=== PATIENT | female | born 1960 | race Caucasian/White ===

== ENCOUNTER 2016-12-03 12:58 | Emergency (ER) | payer MEDICAID, OTHER ==
--- NOTE | 2016-12-03 14:14 | EDDOCDS ---
Nurse's Notes [facility] Name: Izzy Dinh Age: 56 yrs Sex: Female : 1960 Arrival Date: 12/03/2016 Time: 12:58 Bed TR8 Private MD: Unknown, Family Dr Diagnosis: Tinea corporis;Sciatica, left side Presentation: 12/03 13:02 Presenting complaint: Patient states: bad rash under left breast for about a week I [facility] think it's shingles nothing is helping. I also have a pain that goes from my left hip to my knee and I can't sleep on it or turn on it in bed and the front of my leg gets a cramp. Adult Sepsis Screening: The patient does not have new or worsening altered mentation. Patient's respiratory rate is less than 22. Systolic blood pressure is greater than 100. Patient has a qSOFA score of 0- Negative Sepsis Screen. Suicide/Homicide risk assessment- the patient denies having any suicidal and/or homicidal ideations and does not present with any other emotional, behavioral or mental health complaints. Status: Patient is not a therapeutic activities services worker or dependent. Transition of care: patient was not received from another setting of care. 13:02 Acuity: ANYI Level 4 [facility] 13:02 Method Of Arrival: Walkin/Carried/Asstd [facility] Triage Assessment: 13:03 General: Appears in no apparent distress, comfortable, Behavior is appropriate for age, [facility] cooperative. Pain: Location: right lateral anterior chest Pain currently is 6 out of 10 on a pain scale. HIV screening NA for this visit Offered previously. Neurological: Level of Consciousness is awake, alert, Oriented to person, place, time. Respiratory: Airway is patent Respiratory effort is even, unlabored, Respiratory pattern is regular, symmetrical. Derm: Skin is pink, warm & dry. 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 Clonazepam Oral 1 tab 2 times per day as needed for Panic Disorder 2. Hydrochlorothiazide Oral 1 cap nightly for Hypertension 3. Lexapro 20 mg Oral tab 1 tab nightly - PMHx: Anxiety; Depression; Hypertension; - PSHx: Rotator Cuff Repair- Left; Tonsillectomy; ankle, left fracture repair; - Social history: Smoking status: Patient states was never smoker of tobacco. No barriers to communication noted. - Family history: Not pertinent. - : The pt / caregiver states he / she is not on anticoagulants. Home medication list is obtained from the patient. - Exposure Risk Screening:: None identified. Screenin:12 Screening information is obtained from the patient. Fall risk: No risks identified. mlb1 Assistance ADL's: requires no assistance with activities of daily living. Abuse/DV Screen: The patient / caregiver reports he/she is: not in a situation that causes fear, pain or injury. Nutritional screening: No deficits noted. Advance Directives: Currently, there is no health care proxy. home support is adequate. Assessment: 14:11 General: Appears in no apparent distress, comfortable, Behavior is appropriate for age, mlb1 cooperative. Pain: Location: left breast Pain currently is 4 out of 10 on a pain scale. Derm: Rash noted that is on left breast. Vital Signs: 12:59 BP 132 / 72; Pulse 78; Resp 16; Temp 97.9(O); Pulse Ox 99% on R/A; Weight 111.13 kg elp (R); Height 5 ft. 9 in. (175.26 cm) (R); Pain 6/10; 12:59 Body Mass Index 36.18 (111.13 kg, 175.26 cm) [facility] Vitals: 12:59 Log In Time: December 03, 2016 at 12:58. [facility] ED Course: 12:59 Patient visited by Dixei Carrera PCA. elp 12:59 Unknown, Family is Private Physician. elp 12:59 Patient moved to Waiting elp 13:00 Patient visited by Dixie Carrera PCA. elp 13:00 Patient moved to Pre RCE elp 13:03 Triage Initiated cjh 13:20 Patient moved to Triage 3 rs6 13:21 Oneida Esquivel PA-C is [facility]. dt4 13:21 Steve Cantu MD is Attending Physician. dt4 13:21 Patient visited by Oneida Esquivel PA-C. dt4 14:12 No IV's were initiated during this patient's visit. No procedures done that require mlb1 assistance. 14:13 Patient visited by Jorge Luis Dial RN. mlb1 14:13 The patient / caregiver is instructed regarding the plan of care and ED course. mlb1 14:13 Patient moved to [address] Order Results: There are currently no results for this order. Outcome: 14:05 Discharge ordered by Provider. dt4 14:12 Discharge Assessment: Patient awake, alert and oriented x 3. No cognitive and/or mlb1 functional deficits noted. Patient verbalized understanding of disposition instructions. patient administered narcotics - no. The following High Risk Discharge criteria are identified: None. Discharged to home ambulatory. Condition: good. Discharge instructions given to patient, Instructed on discharge instructions, follow up and referral plans. medication usage, Demonstrated understanding of instructions, medications, Pt was receptive of discharge instructions/ teaching. Prescriptions given X 2. No special radiology studies were completed. Property sent home with patient. 14:13 Patient left the ED. mlb1 Signatures: Jorge Luis Dial RN RN mlb1 Hemalatha MartinRN RN [facility] Dixie Carrera, DERRICK BOAT CAPTAIN DERRICK BOAT CAPTAIN elp Oneida Esquivel PAFranchescaC PA-David dt4 Kim Zuluaga, DERRICK BOAT CAPTAIN DERRICK BOAT CAPTAIN rs6 [facility]
--- NOTE | 2016-12-03 14:14 | EDDOCDS ---
Physician Documentation [facility] Name: Izzy Dinh Age: 56 yrs Sex: Female : 1960 Arrival Date: 12/03/2016 Time: 12:58 Bed TR8 Private MD: Unknown, Family Dr Disposition: 12/03/16 14:05 Discharged to Home/Self Care. Impression: Tinea corporis, Sciatica, left side. - Condition is Stable. - Discharge Instructions: Body Ringworm, Sciatica, [id number]. - Prescriptions for CLOTRIMAZOLE/BETAMETHASONE DIPROPRIONATE TOPICAL LOTION - apply to affected area 1 application by TOPICAL route 2 times per day for 14 days APPLY THIN LAYER TO AFFECTED AREA ONLY TWICE DAILY; 1 tube. Ultram 50 mg Oral Tablet - take 1 tablet by ORAL route every 6 hours As needed MDD: 4 tabs; MAY CAUSE DROWSINESS.; 12 tablet. - Medication Reconciliation, Local Pharmacy Hours form. - Follow up: Emergency Department; When: As needed; Reason: Worsening of conditions. Follow up: Private Physician; When: Call to arrange an appointment; Reason: Wound/Symptom Recheck, Recheck today's complaints, Continuance of care. - Problem is new. - Symptoms are unchanged. Historical: - Allergies: PENICILLINS (Hives, Rash); - Home Meds: 1. Clonazepam Oral 1 tab 2 times per day as needed for Panic Disorder 2. Hydrochlorothiazide Oral 1 cap nightly for Hypertension 3. Lexapro 20 mg Oral tab 1 tab nightly - PMHx: Anxiety; Depression; Hypertension; - PSHx: Rotator Cuff Repair- Left; Tonsillectomy; ankle, left fracture repair; - Social history: Smoking status: Patient states was never smoker of tobacco. No barriers to communication noted. - Family history: Not pertinent. - : The pt / caregiver states he / she is not on anticoagulants. Home medication list is obtained from the patient. - Exposure Risk Screening:: None identified. 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 9 in. (175.26 cm) (R); Pain 6/10; 12:59 Body Mass Index 36.18 (111.13 kg, 175.26 cm) [facility] MDM: 14:13 Financial registration complete. lg Signatures: Radha Stewart, Reg Reg lg Jorge Luis Dial, RN RN mlb1 Hemalatha Martin RN RN cjh Oneida Esquivel PA-C PABaldo dt4 MTDD
--- NOTE | 2016-12-05 15:14 | EDDOCDS ---
Nurse's Notes [facility] Name: Izzy Dinh Age: 56 yrs Sex: Female : 1960 Arrival Date: 12/03/2016 Time: 12:58 Bed TR8 Private MD: Unknown, Family Dr Diagnosis: Tinea corporis;Sciatica, left side Presentation: 12/03 13:02 Presenting complaint: Patient states: bad rash under left breast for about a week I [facility] think it's shingles nothing is helping. I also have a pain that goes from my left hip to my knee and I can't sleep on it or turn on it in bed and the front of my leg gets a cramp. Adult Sepsis Screening: The patient does not have new or worsening altered mentation. Patient's respiratory rate is less than 22. Systolic blood pressure is greater than 100. Patient has a qSOFA score of 0- Negative Sepsis Screen. Suicide/Homicide risk assessment- the patient denies having any suicidal and/or homicidal ideations and does not present with any other emotional, behavioral or mental health complaints. Status: Patient is not a financial services intern or dependent. Transition of care: patient was not received from another setting of care. 13:02 Acuity: ANYI Level 4 [facility] 13:02 Method Of Arrival: Walkin/Carried/Asstd [facility] Triage Assessment: 13:03 General: Appears in no apparent distress, comfortable, Behavior is appropriate for age, [facility] cooperative. Pain: Location: right lateral anterior chest Pain currently is 6 out of 10 on a pain scale. HIV screening NA for this visit Offered previously. Neurological: Level of Consciousness is awake, alert, Oriented to person, place, time. Respiratory: Airway is patent Respiratory effort is even, unlabored, Respiratory pattern is regular, symmetrical. Derm: Skin is pink, warm & dry. 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 Clonazepam Oral 1 tab 2 times per day as needed for Panic Disorder 2. Hydrochlorothiazide Oral 1 cap nightly for Hypertension 3. Lexapro 20 mg Oral tab 1 tab nightly - PMHx: Anxiety; Depression; Hypertension; - PSHx: Rotator Cuff Repair- Left; Tonsillectomy; ankle, left fracture repair; - Social history: Smoking status: Patient states was never smoker of tobacco. No barriers to communication noted. - Family history: Not pertinent. - : The pt / caregiver states he / she is not on anticoagulants. Home medication list is obtained from the patient. - Exposure Risk Screening:: None identified. Screenin:12 Screening information is obtained from the patient. Fall risk: No risks identified. mlb1 Assistance ADL's: requires no assistance with activities of daily living. Abuse/DV Screen: The patient / caregiver reports he/she is: not in a situation that causes fear, pain or injury. Nutritional screening: No deficits noted. Advance Directives: Currently, there is no health care proxy. home support is adequate. Assessment: 14:11 General: Appears in no apparent distress, comfortable, Behavior is appropriate for age, mlb1 cooperative. Pain: Location: left breast Pain currently is 4 out of 10 on a pain scale. Derm: Rash noted that is on left breast. Vital Signs: 12:59 BP 132 / 72; Pulse 78; Resp 16; Temp 97.9(O); Pulse Ox 99% on R/A; Weight 111.13 kg elp (R); Height 5 ft. 9 in. (175.26 cm) (R); Pain 6/10; 12:59 Body Mass Index 36.18 (111.13 kg, 175.26 cm) [facility] Vitals: 12:59 Log In Time: December 03, 2016 at 12:58. [facility] ED Course: 12:59 Patient visited by Dixie Carrera PCA. elp 12:59 Unknown, Family is Private Physician. elp 12:59 Patient moved to Waiting elp 13:00 Patient visited by Dixie Carrera PCA. elp 13:00 Patient moved to Pre RCE elp 13:03 Triage Initiated cjh 13:20 Patient moved to Triage 3 rs6 13:21 One[facility]ivel [facility]C [facility]. dt4 13:21 Steve Cnatu MD is Attending Physician. dt4 13:21 Patient visited by Oneida Esquivel PA-C. dt4 14:12 No IV's were initiated during this patient's visit. No procedures done that require mlb1 assistance. 14:13 Patient visited by Jorge Luis Dial RN. mlb1 14:13 The patient / caregiver is instructed regarding the plan of care and ED course. mlb1 14:13 Patient moved to [address] 15:13 T-Sheet-- Draft Copy was scanned into [employer] and attached to record. 15:46 Patient name changed from Izzy\S\Jasmyn\S\Dinh\S\ to Izzy\S\L\S\Dinh. EDMS 15:47 [facility] Payment Agreement was scanned into [employer] and attached to record. Order Results: There are currently no results for this order. Outcome: 14:05 Discharge ordered by Provider. dt4 14:12 Discharge Assessment: Patient awake, alert and oriented x 3. No cognitive and/or mlb1 functional deficits noted. Patient verbalized understanding of disposition instructions. patient administered narcotics - no. The following High Risk Discharge criteria are identified: None. Discharged to home ambulatory. Condition: good. Discharge instructions given to patient, Instructed on discharge instructions, follow up and referral plans. medication usage, Demonstrated understanding of instructions, medications, Pt was receptive of discharge instructions/ teaching. Prescriptions given X 2. No special radiology studies were completed. Property sent home with patient. 14:13 Patient left the ED. mlb1 Signatures: Dispatcher [employer] EDRI Beth Kuo, Reg Reg gb Radha Stewart, Reg Reg lg Jorge Luis Dial RN RN mlb1 Hemalatha MartinRN RN [facility] Dixie Carrera, SUPERVISOR TELEPHONE ANSWERING SERVICE SUPERVISOR TELEPHONE ANSWERING SERVICE elp Oneida Esquivel, PA-C PA-C dt4 Kim Zuluaga, SUPERVISOR TELEPHONE ANSWERING SERVICE SUPERVISOR TELEPHONE ANSWERING SERVICE rs6 Chart Complete MTDD
--- NOTE | 2016-12-05 15:14 | EDDOCDS ---
Physician Documentation [facility] Name: Izzy Dinh Age: 56 yrs Sex: Female : 1960 Arrival Date: 12/03/2016 Time: 12:58 Bed TR8 Private MD: Unknown, Family Dr Disposition: 12/03/16 14:05 Discharged to Home/Self Care. Impression: Tinea corporis, Sciatica, left side. - Condition is Stable. - Discharge Instructions: Body Ringworm, Sciatica, [id number]. - Prescriptions for CLOTRIMAZOLE/BETAMETHASONE DIPROPRIONATE TOPICAL LOTION - apply to affected area 1 application by TOPICAL route 2 times per day for 14 days APPLY THIN LAYER TO AFFECTED AREA ONLY TWICE DAILY; 1 tube. Ultram 50 mg Oral Tablet - take 1 tablet by ORAL route every 6 hours As needed MDD: 4 tabs; MAY CAUSE DROWSINESS.; 12 tablet. - Medication Reconciliation, Local Pharmacy Hours form. - Follow up: Emergency Department; When: As needed; Reason: Worsening of conditions. Follow up: Private Physician; When: Call to arrange an appointment; Reason: Wound/Symptom Recheck, Recheck today's complaints, Continuance of care. - Problem is new. - Symptoms are unchanged. Historical: - Allergies: PENICILLINS (Hives, Rash); - Home Meds: 1. Clonazepam Oral 1 tab 2 times per day as needed for Panic Disorder 2. Hydrochlorothiazide Oral 1 cap nightly for Hypertension 3. Lexapro 20 mg Oral tab 1 tab nightly - PMHx: Anxiety; Depression; Hypertension; - PSHx: Rotator Cuff Repair- Left; Tonsillectomy; ankle, left fracture repair; - Social history: Smoking status: Patient states was never smoker of tobacco. No barriers to communication noted. - Family history: Not pertinent. - : The pt / caregiver states he / she is not on anticoagulants. Home medication list is obtained from the patient. - Exposure Risk Screening:: None identified. 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 9 in. (175.26 cm) (R); Pain 6/10; 12:59 Body Mass Index 36.18 (111.13 kg, 175.26 cm) elp MDM: 14:13 Financial registration complete. lg 15:13 T-Sheet-- Draft Copy was scanned into [employer] and attached to record. gb 15:47 [facility] Payment Agreement was scanned into [employer] and attached to record. lg Signatures: Beth Kuo, Reg Reg gb Radha Stewart, Reg Reg lg Jorge Luis Dial, RN RN mlb1 Hemalatha MartinRN RN [facility] Oneida Esquivel, TACOS PABaldo dt4 The chart was reviewed and I authenticate all verbal orders and agree with the evaluation and treatment provided.Attachments: 15:13 T-Sheet-- Draft Copy gb 15:47 [facility] Payment Agreement lg Chart Complete MTDD
--- NOTE | 2016-12-05 15:14 | EDDOCDS ---
Physician Documentation [facility] Name: Izzy Dinh Age: 56 yrs Sex: Female : 1960 Arrival Date: 12/03/2016 Time: 12:58 Bed TR8 Private MD: Unknown, Family Dr Disposition: 12/03/16 14:05 Discharged to Home/Self Care. Impression: Tinea corporis, Sciatica, left side. - Condition is Stable. - Discharge Instructions: Body Ringworm, Sciatica, [id number]. - Prescriptions for CLOTRIMAZOLE/BETAMETHASONE DIPROPRIONATE TOPICAL LOTION - apply to affected area 1 application by TOPICAL route 2 times per day for 14 days APPLY THIN LAYER TO AFFECTED AREA ONLY TWICE DAILY; 1 tube. Ultram 50 mg Oral Tablet - take 1 tablet by ORAL route every 6 hours As needed MDD: 4 tabs; MAY CAUSE DROWSINESS.; 12 tablet. - Medication Reconciliation, Local Pharmacy Hours form. - Follow up: Emergency Department; When: As needed; Reason: Worsening of conditions. Follow up: Private Physician; When: Call to arrange an appointment; Reason: Wound/Symptom Recheck, Recheck today's complaints, Continuance of care. - Problem is new. - Symptoms are unchanged. Historical: - Allergies: PENICILLINS (Hives, Rash); - Home Meds: 1. Clonazepam Oral 1 tab 2 times per day as needed for Panic Disorder 2. Hydrochlorothiazide Oral 1 cap nightly for Hypertension 3. Lexapro 20 mg Oral tab 1 tab nightly - PMHx: Anxiety; Depression; Hypertension; - PSHx: Rotator Cuff Repair- Left; Tonsillectomy; ankle, left fracture repair; - Social history: Smoking status: Patient states was never smoker of tobacco. No barriers to communication noted. - Family history: Not pertinent. - : The pt / caregiver states he / she is not on anticoagulants. Home medication list is obtained from the patient. - Exposure Risk Screening:: None identified. 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 9 in. (175.26 cm) (R); Pain 6/10; 12:59 Body Mass Index 36.18 (111.13 kg, 175.26 cm) elp MDM: 14:13 Financial registration complete. lg 15:13 T-Sheet-- Draft Copy was scanned into [employer] and attached to record. gb 15:47 [facility] Payment Agreement was scanned into [employer] and attached to record. lg Signatures: Beth Kuo, Reg Reg gb Radha Stewart, Reg Reg lg Jorge Luis Dial, RN RN mlb1 Hemalatha MartinRN RN [facility] Oneida Esquivel, TACOS PABaldo dt4 The chart was reviewed and I authenticate all verbal orders and agree with the evaluation and treatment provided.Attachments: 15:13 T-Sheet-- Draft Copy gb 15:47 [facility] Payment Agreement lg Chart Complete MTDD
== END 2016-12-03 14:13 | disposition home or self-care (01) ==
LOC: M ED 12:58
DX: B35.4 Tinea corporis (principal); M54.32 Sciatica, left side; I10 Essential (primary) hypertension; F41.9 Anxiety disorder, unspecified; F32.9 Major depressive disorder, single episode, unspecified; Z79.899 Other long term (current) drug therapy; Z88.0 Allergy status to penicillin

== ENCOUNTER → 2017-01-02 | Outpatient (CLI) | payer OTHER ==
--- NOTE | 2017-01-06 09:33 | DEXA ---
AP SPINE L1 - L4 1.019 -1.4 -1.8 LT FEMUR TOTAL 1.082 0.6 0.4 RT FEMUR TOTAL 1.038 0.2 0.0 TOTAL BODY TOTAL OTHER DUAL FEMUR FRAX* ASSESSMENT Risk factors: History of adult fracture. 10 year probability of fracture Major osteoporotic fracture 8.1 % Hip fracture 0.2 % COMMENTS: Normal bone densitometry of the left hip. Normal bone densitometry of the right hip. There is low bone density of the spine. FOLLOW-UP: Recommendation for the next bone density exam: 2 years. RIZWAN
== END ==
LOC: M WHC 13:47
PROVIDERS: ATTEND Family Medicine
DX: Z12.31 Encounter for screening mammogram for malignant neoplasm of breast (principal); N95.9 Unspecified menopausal and perimenopausal disorder

== ENCOUNTER → 2017-01-07 | Outpatient (REF) | payer OTHER ==
[2017-01-07 16:04] LABS: MEAN CORPUSCULAR HGB CONC 33.4 g/dl (32.0-36.5); MEAN CORPUSCULAR VOLUME 89.8 fl (80.0-96.0); RED CELL DISTRIBUTION WIDTH 12.5 % (11.5-14.5); WHITE BLOOD COUNT 5.2 K/mm3 (4.0-10.0)
[2017-01-07 16:28] LABS: ALBUMIN 3.6 GM/DL (3.2-5.2); ALBUMIN/GLOBULIN RATIO 1.03 (1.00-1.93); ALKALINE PHOSPHATASE 104 U/L (45-117); ALT/SGPT 25 U/L (12-78); ANION GAP 6 MEQ/L (8-16); AST/SGOT 19 U/L (15-37); BLOOD UREA NITROGEN 19 MG/DL (7-18); CALCIUM LEVEL 8.4 MG/DL (8.5-10.1); CARBON DIOXIDE LEVEL 30 MEQ/L (21-32); CHLORIDE LEVEL 105 MEQ/L (98-107); CHOLESTEROL LEVEL 174 MG/DL (<200); CREATININE FOR GFR 0.68 MG/DL (0.55-1.02); GLOMERULAR FILTRATION RATE > 60.0 (>51); GLUCOSE, FASTING 96 MG/DL (70-105); MAGNESIUM LEVEL 2.1 MG/DL (1.8-2.4); POTASSIUM SERUM 4.1 MEQ/L (3.5-5.1); SODIUM LEVEL 141 MEQ/L (136-145); TOTAL PROTEIN 7.1 GM/DL (6.4-8.2); TRIGLYCERIDES LEVEL 134 MG/DL (<150)
[2017-01-07 17:27] LABS: FOLLICLE STIMULATING HORMONE 32.7 mIU/mL; LUTEINIZING HORMONE 17.6 mIU/mL
== END ==
LOC: M SFHCSACK 08:42
PROVIDERS: ATTEND Physician Assistant
DX: N95.1 Menopausal and female climacteric states (principal); R25.2 Cramp and spasm; I10 Essential (primary) hypertension; F34.1 Dysthymic disorder

== ENCOUNTER 2017-05-06 12:10 | Emergency (ER) | payer OTHER ==
[~2017-05-06] VITALS: Ht 175.3 cm; Wt 119.8 kg
[2017-05-06] MEDS ORDERED: HYDR12CA PO (12:24)
[2017-05-06] MEDS ORDERED: ESCI20TA PO (12:24)
[2017-05-06] MEDS ORDERED: CLON0.5T PO (12:24)
[2017-05-06] MEDS ORDERED: IBUP200C10 PO (12:24)
[2017-05-06] MEDS ORDERED: TESS100C PO (13:54)
[2017-05-06] MEDS ORDERED: MAGICMW MT (13:54)
[2017-05-06] MEDS ORDERED: CLEO300C2 PO (13:54)
[2017-05-06 14:09] VITALS: BP 126/74
== END 2017-05-06 14:11 | disposition home or self-care (01) ==
LOC: M ED 13:47
DX: R05 Cough (principal); F41.9 Anxiety disorder, unspecified; Z79.899 Other long term (current) drug therapy; Z88.0 Allergy status to penicillin

== ENCOUNTER → 2017-06-12 | Outpatient (REF) | payer OTHER ==
[~2017-06-12] MED LIST: CLEO300C2 PO; CLON0.5T PO; ESCI20TA PO; HYDR12CA PO; IBUP200C10 PO; MAGICMW MT; TESS100C PO
== END ==
LOC: M SFHCSACK 11:20
PROVIDERS: ATTEND Physician Assistant
DX: Z78.9 Other specified health status (principal)

== ENCOUNTER → 2017-07-07 | Outpatient (REF) | payer OTHER | LOC: M SFHCWAGY 13:31 | PROVIDERS: ATTEND Nurse Practitioner Family | DX: Z12.4 Encounter for screening for malignant neoplasm of cervix (principal) ==

== ENCOUNTER 2017-10-10 10:05 | Emergency (ER) | payer OTHER ==
[~2017-10-10] VITALS: Ht 175.3 cm; Wt 113.2 kg
[2017-10-10 10:06] VITALS: BP 123/60
--- NOTE | 2017-10-10 10:54 | REP ---
Clinical: Trauma. Technique: AP, lateral, bilateral oblique and sunrise views of the right knee. Findings: Advanced tricompartmental osteoarthritic degenerative changes significantly limit evaluation for subtle underlying injury. No obvious acute fracture or dislocation is appreciated. Diffuse swelling. Cannot exclude effusion. Impression: Limited by advanced tricompartmental arthritic changes. Soft tissue swelling suggested. Subtle injury cannot be excluded. Signed by Feliberto Dailey MD 10/10/2017 10:45 A
--- NOTE | 2017-10-10 10:55 | REP ---
Clinical: Trauma. Technique: AP, lateral, bilateral oblique views right foot . Findings: Degenerative changes including valgus deformity noted as well as nonacute fracture at the base of the fifth metatarsal bone with surrounding callus formation and periosteal reaction. No obvious acute fracture or dislocation appreciated. No subcutaneous emphysema or radiodense foreign body. Impression: Degenerative changes and evidence for nonacute fracture at the base of the fifth metatarsal bone. Signed by Feliberto Dailey MD 10/10/2017 10:47 A
--- NOTE | 2017-10-10 10:56 | REP ---
Clinical: Trauma. Technique: AP, lateral, bilateral oblique views of the right ankle. Findings: Arthritic degenerative changes and possible old injury at the base of the fifth metatarsal bone suggested. No obvious acute fracture or dislocation. Ankle mortise appears intact. Impression: Arthritic degenerative changes. Nonacute fracture at the base of the fifth metatarsal bone. No acute ankle fracture identified. Signed by Feliberto Dailey MD 10/10/2017 10:48 A
--- NOTE | 2017-10-10 11:59 | REP ---
Clinical: Trauma. Possible fracture. Technique: Axial noncontrast images from the distal femoral diaphysis through the proximal tibial diaphysis with coronal and sagittal re-formations. Findings: There is no evidence for acute fracture or dislocation. Advanced tricompartmental osteoarthritic degenerative changes are appreciated including diffuse spurring and osteophytosis, subchondral heterogeneity with scattered cystic changes, joint space narrowing and small effusion. The surrounding visualized musculature appears intact and normal. The subcutaneous tissues are grossly unremarkable. Impression: Advanced tricompartmental osteoarthritic degenerative changes including small effusion. No acute fracture or dislocation. Signed by Feliberto Dailey MD 10/10/2017 11:51 A
[2017-10-10] MEDS ORDERED: PERC5TAB12 PO (12:27)
--- NOTE | 2017-10-12 08:36 | ED PDOC ---
Post-Departure Follow-Up radiology report faxed to Babita Wilde Sarah MD Oct 12, 2017 08:36
== END 2017-10-10 12:49 | disposition home or self-care (01) ==
LOC: M ED 10:05
DX: S92.354A Nondisplaced fracture of fifth metatarsal bone, right foot, initial encounter for closed fracture (principal); M17.11 Unilateral primary osteoarthritis, right knee; M19.071 Primary osteoarthritis, right ankle and foot; M25.461 Effusion, right knee; X50.1XXA Overexertion from prolonged static or awkward postures, initial encounter; Y92.480 Sidewalk as the place of occurrence of the external cause; Y93.01 Activity, walking, marching and hiking; Y99.9 Unspecified external cause status; F41.9 Anxiety disorder, unspecified; M19.90 Unspecified osteoarthritis, unspecified site; Z79.899 Other long term (current) drug therapy; Z88.0 Allergy status to penicillin

== ENCOUNTER → 2017-12-16 | Outpatient (REF) | payer BC | LOC: M SFHCSACK 14:27 | DX: J02.9 Acute pharyngitis, unspecified (principal) ==

== ENCOUNTER 2018-03-05 01:39 | Emergency (ER) | payer MEDICAID, BC ==
[2018-03-05] MEDS ORDERED: KETOROLAC 30 MG/ML VIAL (J1885) As Ordered (03:34)
[2018-03-05] MEDS: KETOROLAC 60 MG/2 ML VIAL (J1885) IM (04:06)
== END 2018-03-05 04:21 | disposition home or self-care (01) ==
LOC: M ED 01:39
DX: M17.12 Unilateral primary osteoarthritis, left knee (principal); I10 Essential (primary) hypertension; F33.9 Major depressive disorder, recurrent, unspecified; Z88.0 Allergy status to penicillin; Z79.899 Other long term (current) drug therapy
CPT/HCPCS: J1885

== ENCOUNTER → 2018-03-16 | Outpatient (CLI) | payer MEDICAID ==
[2018-03-16 11:09] LABS: AMORPHOUS SEDIMENT SMALL (NEGATIVE); APPEARANCE, URINE CLOUDY (CLEAR); BACTERIA, URINE AUTO 1+ (NEGATIVE); BILIRUBIN, URINE AUTO NEGATIVE (NEGATIVE); BLOOD, URINE BLOOD NEGATIVE (NEGATIVE); COLOR, URINE YELLOW (YELLOW); GLUCOSE, URINE (UA) AUTO NEGATIVE (NEGATIVE); KETONE, URINE AUTO NEGATIVE (NEGATIVE); LEUKOCYTE ESTERASE, URINE AUTO 1+ (NEGATIVE); MUCUS, URINE LARGE (NEGATIVE); NITRITE, URINE AUTO NEGATIVE (NEGATIVE); PROTEIN, URINE AUTO NEGATIVE (NEGATIVE); RBC, URINE AUTO 2 /HPF (0-3); SPECIFIC GRAVITY URINE AUTO 1.027 (1.002-1.035); SQUAMOUS EPITHELIAL CELL UR AU 12 /HPF (0-6); UROBILINOGEN, URINE AUTO 0.2 mg/dL (0.0-2.0); WBC, URINE AUTO 9 /HPF (0-3)
[2018-03-16 11:13] LABS: HEMATOCRIT 40.9 % (36.0-47.0); HEMOGLOBIN 13.9 g/dl (12.0-15.5); MEAN CORPUSCULAR HEMOGLOBIN 30.2 pg (27.0-33.0); MEAN CORPUSCULAR VOLUME 88.9 fl (80.0-96.0); PLATELET COUNT, AUTOMATED 348 10^3/uL (150-450); RED CELL DISTRIBUTION WIDTH 12.5 % (11.5-14.5); WHITE BLOOD COUNT 7.8 10^3/uL (4.0-10.0)
[2018-03-16 11:16] LABS: INR 1.05; PROTHROMBIN TIME 13.8 SECONDS (12.4-14.5)
[2018-03-16 11:33] LABS: ALBUMIN 3.9 GM/DL (3.2-5.2); ALBUMIN/GLOBULIN RATIO 1.03 (1.00-1.93); ALKALINE PHOSPHATASE 122 U/L (45-117); ALT/SGPT 28 U/L (12-78); ANION GAP 6 MEQ/L (8-16); AST/SGOT 20 U/L (7-37); BILIRUBIN,TOTAL 1.3 MG/DL (0.2-1.0); BLOOD UREA NITROGEN 27 MG/DL (7-18); CALCIUM LEVEL 8.7 MG/DL (8.5-10.1); CARBON DIOXIDE LEVEL 30 MEQ/L (21-32); CHLORIDE LEVEL 106 MEQ/L (98-107); CREATININE FOR GFR 0.68 MG/DL (0.55-1.30); GLOMERULAR FILTRATION RATE > 60.0 (>51); GLUCOSE, FASTING 106 MG/DL (70-100); POTASSIUM SERUM 4.1 MEQ/L (3.5-5.1); SODIUM LEVEL 142 MEQ/L (136-145); TOTAL PROTEIN 7.7 GM/DL (6.4-8.2)
[2018-03-16 11:36] LABS: ERYTHROCYTE SEDIMENTATION RATE 23 mm/hr (0-30)
== END ==
LOC: M ADMPAT 09:10
DX: M17.12 Unilateral primary osteoarthritis, left knee (principal)
CPT/HCPCS: 71046

== ENCOUNTER 2018-04-06 05:39 | Inpatient (IN) | payer OTHER, MEDICAID ==
[2018-04-06] MEDS: ACETAMINOPHEN 500 MG TAB PO (06:32)
[2018-04-06] MEDS: LR 1,000 ML IV ×4 (06:32→22:00)
[2018-04-06] MEDS ORDERED: MIDAZOLAM INJ 2 MG/2 ML VIAL (J2250) As Ordered ×3 (06:35→07:40)
[2018-04-06] MEDS ORDERED: fentaNYL 100 MCG/2 ML INJECTION (J3010) As Ordered ×2 (06:35→07:07)
[2018-04-06] MEDS ORDERED: PROPOFOL 200 MG/20 ML VIAL As Ordered ×3 (07:06→08:57)
[2018-04-06] MEDS: VANCOMYCIN HCL 1,000 MG, VIAL MATE ADAPTER 1 EACH in D5W 250 ML IV ×2 (07:14→19:10)
[2018-04-06] MEDS: MIDAZOLAM INJ 2 MG/2 ML VIAL (J2250) IV (07:15)
[2018-04-06] MEDS: fentaNYL 100 MCG/2 ML INJECTION (J3010) IV ×5 (07:15→10:05)
[2018-04-06] MEDS ORDERED: BUPIVACAINE/DEXTROSE 0.75% 2 ML AMP As Ordered (07:27)
[2018-04-06] MEDS: CLINDAMYCIN INJ 900MG/6ML VIAL As Ordered (08:14)
[2018-04-06] MEDS: EPINEPHrine INJ 1 MG/ML 1ML AMP As Ordered (08:14)
[2018-04-06] MEDS: BUPIVACAINE LIPOSOME/PF 1.3% 20 ML VIAL (13.3MG/ML)(EXPAREL) As Ordered (08:14)
[2018-04-06] MEDS: BUPIVACAINE HCL 0.25% 10 ML VIAL As Ordered (08:14)
[2018-04-06] MEDS: TRANEXAMIC ACID 100 MG/ML 10ML VIAL As Ordered (08:14)
[2018-04-06] MEDS ORDERED: MORPHINE 1MG/ML IN 0.9% NACL 100ML IV BAG As Ordered (09:08)
[2018-04-06] MEDS ORDERED: KETOROLAC 60 MG/2 ML VIAL (J1885) As Ordered (09:17)
[2018-04-06] MEDS ORDERED: ONDANSETRON 4MG/2ML VIAL (J2405) As Ordered ×2 (09:17→09:44)
[2018-04-06] MEDS: MORPHINE 1MG/ML IN 0.9% NACL 100ML IV BAG IV (09:45)
[2018-04-06] MEDS: ONDANSETRON 4MG/2ML VIAL (J2405) IV ×2 (09:50→19:10)
[2018-04-06] MEDS ORDERED: NALBUPHINE HCL 10 MG/ML AMP (J2300) IV (10:00)
[2018-04-06] MEDS ORDERED: NALOXONE INJ 0.4 MG/1 ML VIAL (J2310) IV (10:00)
[2018-04-06] MEDS ORDERED: FLEET ENEMA PR (10:00)
[2018-04-06] MEDS ORDERED: ACETAMINOPHEN TAB 650MG DOSE (2X325MG) PO (10:00)
[2018-04-06] MEDS ORDERED: EPIDURAL/PCA KEYS XX (10:00)
[2018-04-06] MEDS ORDERED: diphenhydrAMINE INJ 50MG/ML VIAL (J1200) IV (10:00)
[2018-04-06] MEDS ORDERED: EPINEPHrine INJ 1 MG/ML 1ML AMP (10:10)
[2018-04-06] MEDS ORDERED: dexameTHASONE 10 MG/1 ML VIAL PRES.FREE (J1100) (10:10)
[2018-04-06] MEDS ORDERED: ROPIvacaine 0.5% 30 ML INJECTION (J2795 PER 1MG) (10:10)
[2018-04-06] MEDS: ESCITALOPRAM OXALATE 10 MG TAB (LEXAPRO) PO (20:01)
[2018-04-06] MEDS: clonazePAM 0.5 MG TAB PO (20:01)
[2018-04-07] MEDS: MORPHINE 1MG/ML IN 0.9% NACL 100ML IV BAG IV (01:52)
[2018-04-07 06:44] LABS: HEMATOCRIT 35.2 % (36.0-47.0); HEMOGLOBIN 11.3 g/dl (12.0-15.5); MEAN CORPUSCULAR HEMOGLOBIN 30.8 pg (27.0-33.0); MEAN CORPUSCULAR HGB CONC 32.1 g/dl (32.0-36.5); MEAN CORPUSCULAR VOLUME 95.9 fl (80.0-96.0); PLATELET COUNT, AUTOMATED 262 10^3/uL (150-450); RED BLOOD COUNT 3.67 10^6/uL (4.00-5.40); RED CELL DISTRIBUTION WIDTH 13.2 % (11.5-14.5); WHITE BLOOD COUNT 10.6 10^3/uL (4.0-10.0)
[2018-04-07 06:57] LABS: INR 1.08; PROTHROMBIN TIME 14.2 SECONDS (12.4-14.5)
[2018-04-07 07:09] LABS: ANION GAP 5 MEQ/L (8-16); BLOOD UREA NITROGEN 18 MG/DL (7-18); CALCIUM LEVEL 8.1 MG/DL (8.5-10.1); CARBON DIOXIDE LEVEL 30 MEQ/L (21-32); CHLORIDE LEVEL 104 MEQ/L (98-107); CREATININE FOR GFR 0.72 MG/DL (0.55-1.30); GLOMERULAR FILTRATION RATE > 60.0 (>51); GLUCOSE, FASTING 138 MG/DL (70-100); POTASSIUM SERUM 3.4 MEQ/L (3.5-5.1); SODIUM LEVEL 139 MEQ/L (136-145)
[2018-04-07] MEDS: diphenhydrAMINE 25 MG CAP PO ×2 (08:20→16:59)
[2018-04-07] MEDS: MOM 30ML SUSPENSION UDC PO (08:20)
[2018-04-07] MEDS: MIRALAX *UNIT DOSE* 17GM PACKET PO (08:20)
[2018-04-07] MEDS: SENOKOT S TAB PO ×2 (08:20→20:19)
[2018-04-07] MEDS: clonazePAM 0.5 MG TAB PO ×2 (08:20→20:19)
[2018-04-07] MEDS ORDERED: ONDANSETRON 4 MG TAB (S0181) PO (08:45)
[2018-04-07] MEDS ORDERED: PERCOCET 5MG/325MG TAB PO (08:45)
[2018-04-07] MEDS: PERCOCET 5MG/325MG TAB PO ×4 (10:16→22:37)
[2018-04-07] MEDS: RIVAROXABAN 10 MG TAB (XARELTO) PO (18:30)
[2018-04-07] MEDS: ESCITALOPRAM OXALATE 10 MG TAB (LEXAPRO) PO (20:19)
[2018-04-08] MEDS: PERCOCET 5MG/325MG TAB PO ×2 (04:46→09:32)
[2018-04-08 05:53] LABS: HEMATOCRIT 28.4 % (36.0-47.0); HEMOGLOBIN 9.6 g/dl (12.0-15.5); MEAN CORPUSCULAR HEMOGLOBIN 30.3 pg (27.0-33.0); MEAN CORPUSCULAR HGB CONC 33.8 g/dl (32.0-36.5); MEAN CORPUSCULAR VOLUME 89.6 fl (80.0-96.0); PLATELET COUNT, AUTOMATED 249 10^3/uL (150-450); RED BLOOD COUNT 3.17 10^6/uL (4.00-5.40); RED CELL DISTRIBUTION WIDTH 12.9 % (11.5-14.5); WHITE BLOOD COUNT 10.8 10^3/uL (4.0-10.0)
[2018-04-08 06:04] LABS: INR 1.58; PROTHROMBIN TIME 19.3 SECONDS (12.4-14.5)
[2018-04-08 06:19] LABS: ANION GAP 6 MEQ/L (8-16); BLOOD UREA NITROGEN 15 MG/DL (7-18); CALCIUM LEVEL 7.6 MG/DL (8.5-10.1); CARBON DIOXIDE LEVEL 31 MEQ/L (21-32); CHLORIDE LEVEL 101 MEQ/L (98-107); CREATININE FOR GFR 0.71 MG/DL (0.55-1.30); GLOMERULAR FILTRATION RATE > 60.0 (>51); GLUCOSE, FASTING 129 MG/DL (70-100); POTASSIUM SERUM 3.5 MEQ/L (3.5-5.1); SODIUM LEVEL 138 MEQ/L (136-145)
[2018-04-08] MEDS: MOM 30ML SUSPENSION UDC PO (09:28)
[2018-04-08] MEDS: SENOKOT S TAB PO (09:29)
[2018-04-08] MEDS: MIRALAX *UNIT DOSE* 17GM PACKET PO (09:29)
[2018-04-08] MEDS: clonazePAM 0.5 MG TAB PO (09:29)
[2018-04-08] MEDS: POTASSIUM CHLORIDE 10 MEQ SR TABLET PO (10:30)
[2018-04-08] MEDS: MORPHINE 15 MG SA TAB PO (11:05)
== END 2018-04-08 13:04 | disposition home health service (06) | DRG 302 ==
LOC: M OR 05:39 → M MS5PR 14:05
PROC: 0SRD0J9 Replacement of Left Knee Joint with Synthetic Substitute, Cemented, Open Approach (ICD-10-PCS; principal; 2018-04-06 07:27)
DX: M17.12 Unilateral primary osteoarthritis, left knee (principal); I10 Essential (primary) hypertension; G47.00 Insomnia, unspecified; E66.9 Obesity, unspecified; E87.6 Hypokalemia; F41.9 Anxiety disorder, unspecified

== ENCOUNTER 2018-06-07 19:12 | Emergency (ER) | payer OTHER | END 2018-06-07 20:55 | disposition left against medical advice (07) | LOC: M ED 19:12 | DX: M54.9 Dorsalgia, unspecified (principal); Z53.21 Procedure and treatment not carried out due to patient leaving prior to being seen by health care provider ==

== ENCOUNTER → 2018-08-05 | Outpatient (CLI) | payer OTHER | LOC: M RAD 09:40 | DX: M51.26 Other intervertebral disc displacement, lumbar region (principal); M48.061 Spinal stenosis, lumbar region without neurogenic claudication | CPT/HCPCS: 72148 ==

== ENCOUNTER → 2018-09-08 | Outpatient (CLI) | payer OTHER | LOC: M PAIN 13:00 | DX: M46.1 Sacroiliitis, not elsewhere classified (principal); I10 Essential (primary) hypertension; M19.90 Unspecified osteoarthritis, unspecified site; G47.00 Insomnia, unspecified; K21.9 Gastro-esophageal reflux disease without esophagitis; Z79.899 Other long term (current) drug therapy; Z88.0 Allergy status to penicillin; Z87.820 Personal history of traumatic brain injury; Z96.652 Presence of left artificial knee joint | CPT/HCPCS: G0463 ==

== ENCOUNTER → 2018-09-15 | Outpatient (CLI) | payer OTHER | LOC: M SLEEP HO 11:03 | DX: R06.83 Snoring (principal) | CPT/HCPCS: G0399 ==

== ENCOUNTER → 2018-11-04 | Outpatient (CLI) | payer OTHER ==
[~2018-11-04] MED LIST changes: -CLON0.5T PO; +CLON0.5T8 PO; -IBUP200C10 PO; +IBUP200C25 PO; +KETO10TAB PO; +PERC5TAB12 PO; +ROBA500T PO; +VITA500055 PO; +XARE10TA PO
--- NOTE | 2018-11-04 16:42 | REP ---
Chest x-ray: Two views. History: Wheezing . Comparison study: March 16, 2018 . Findings: The lungs are well inflated and free of infiltrate. The pleural angles are sharp. The heart size is normal. Pulmonary vasculature is not increased. No significant bony abnormality is seen. Impression: Negative chest x-ray. Electronically Signed by Da Corona MD 11/04/2018 04:34 P
== END ==
LOC: M LRY 16:13
PROVIDERS: ATTEND Nurse Practitioner Family
DX: R06.2 Wheezing (principal)

== ENCOUNTER → 2018-11-04 | Outpatient (REF) | payer OTHER | LOC: M SFHCLERA 15:57 | PROVIDERS: ATTEND Nurse Practitioner Family | DX: R53.81 Other malaise (principal) ==

== ENCOUNTER → 2018-12-10 | Outpatient (REF) | payer OTHER ==
[2018-12-10 13:49] LABS: HEMOGLOBIN A1c 6.5 %
== END ==
LOC: M SFHCPLAZ 11:44
PROVIDERS: ATTEND Physician Assistant Medical
DX: E66.09 Other obesity due to excess calories (principal)

== ENCOUNTER → 2019-01-11 | Outpatient (REF) | payer OTHER ==
[2019-01-11 13:55] LABS: CHOLESTEROL RISK RATIO 5.047 (<5); PTH INTACT 78.7 PG/ML (18.5-88.0); TOTAL 25(OH) VITAMIN D 37.4 NG/ML (30.0-100.0)
[2019-01-13 14:19] LABS: HEPATITIS C QUANTITATION HCV Not Detected IU/mL (.)
== END ==
LOC: M SFHCPLAZ 09:34
PROVIDERS: ATTEND Physician Assistant Medical
DX: E55.9 Vitamin D deficiency, unspecified (principal); Z13.220 Encounter for screening for lipoid disorders; Z11.59 Encounter for screening for other viral diseases

== ENCOUNTER → 2019-01-18 | Outpatient (CLI) | payer OTHER ==
--- NOTE | 2019-01-18 11:57 | REPMRS ---
Patient History The patient states she had a clinical breast exam in 01/2019. Patient is postmenopausal. Family history of breast cancer at age 50 or over in paternal grandmother, pancreatic cancer at age 50 or over in maternal grandfather. No Hormone Replacement Therapy 3D TOMOSYNTHESIS WAS PERFORMED. Digital Woman Screen Mammo: January 18, 2019 - Exam #: [id number] Bilateral CC and MLO view(s) were taken. Technologist: Iliana Davis, Technologist Prior study comparison: January 02, 2017, digital woman screen mammo performed at [facility]. December 09, 2012, digital bilateral screening mammo, performed at [facility]. FINDINGS: There are scattered fibroglandular densities. There has been no change in the appearance of the mammogram from the prior studies. There is a mild amount of residual fibroglandular tissue which is fairly symmetric. There is no interval development of dominant mass, architectural distortion, or clustered microcalcification suggestive of malignancy. Assessment: BI-RADS/ACR category 1 mammogram. Negative Mammogram. Recommendation Routine screening mammogram in 1 year (for women over age 40). This mammogram was interpreted with the aid of an FDA-approved computer-aided dectection system. Electronically Signed By: Gavino Biswas MD 01/18/19 0038
--- NOTE | 2019-01-20 12:56 | DEXA ---
AP SPINE L1 - L4 1.110 -0.7 0.2 LT FEMUR TOTAL 1.019 0.1 0.8 LT NECK 0.992 -0.3 0.7 RT FEMUR TOTAL 1.012 0.0 0.8 RT NECK 0.940 -0.7 0.4 TOTAL BODY TOTAL OTHER COMMENTS: Normal bone densitometry of the spine and hips. The density of the spine has increased 8.9% since 01/02/2017. The density of the left hip has decreased 5.8% since 01/02/2017. The density of the right hip has decreased 2.5% since 01/02/2017. The increased density of the spine does represent a significant change. The decreased density of the left hip does represent a significant change. The decreased density of the right hip does represent a significant change. FOLLOW-UP: Recommendation for the next bone density exam: 5 years. RIZWAN
== END ==
LOC: M WHC 09:21
PROVIDERS: ATTEND Physician Assistant Medical
DX: Z12.31 Encounter for screening mammogram for malignant neoplasm of breast (principal); E55.9 Vitamin D deficiency, unspecified

== ENCOUNTER → 2019-01-18 | Outpatient (REF) | payer OTHER ==
[2019-01-20 14:24] LABS: HPV HYBRID CAPTURE II Negative (Negative)
== END ==
LOC: M SFHCWAGY 10:12
PROVIDERS: ATTEND Nurse Practitioner Family
DX: Z12.4 Encounter for screening for malignant neoplasm of cervix (principal)

== ENCOUNTER → 2019-03-15 | Outpatient (REF) | payer OTHER ==
[~2019-03-15] MED LIST changes: +ATOR1TAB21 PO; +D 50CAP PO; +DRIS50003 PO; +GABA-843 PO; +IBUP80TA PO; +LISI10TA2 PO; +METF500T13 PO; +TIZA4CAP PO; +TUMS0.15 PO
[2019-03-15 16:25] LABS: MALB URINE SIEMENS 16.7 MG/L; MAU/CREAT RATIO 11.5 MCG/MG (0.0-30.0)
[2019-03-15 18:59] LABS: HEMOGLOBIN A1c 5.9 %
== END ==
LOC: M SFHCPLAZ 13:51
PROVIDERS: ATTEND Physician Assistant Medical
DX: E11.9 Type 2 diabetes mellitus without complications (principal)

== ENCOUNTER 2019-03-22 06:54 | Day surgery (SDC) | payer OTHER ==
[~2019-03-22] VITALS: Ht 175.3 cm; Wt 105.2 kg
[2019-03-22] MEDS ORDERED: PROPOFOL 200 MG/20 ML VIAL As Ordered ONE (07:12)
[2019-03-22] MEDS ORDERED: LIDOCAINE 2% INJ 100 MG/5 ML SDV (FOR ANES.) As Ordered ONE (07:12)
[2019-03-22] MEDS ORDERED: fentaNYL 100 MCG/2 ML INJECTION (J3010) As Ordered ONE (07:18)
[2019-03-22] MEDS ORDERED: NS 1,000 ML IV SCH (07:30)
--- NOTE | 2019-03-22 08:37 | ROOR ---
Patient Name: Izzy Dinh Procedure Date: 03/22/2019 7:56 AM Date of : 1960 Age: 58 Room: [facility] Gender: Female Note Status: Finalized Procedure: Colonoscopy Indications: Screening for colorectal malignant neoplasm Providers: Terry Stafford MD Referring MD: Jennifer PATTERSON Requesting Provider: Medicines: Monitored Anesthesia Care Complications: No immediate complications. Procedure: Pre-Anesthesia Assessment: - Prior to the procedure, a History and Physical was performed, and patient medications and allergies were reviewed. The patient is competent. The risks and benefits of the procedure and the sedation options and risks were discussed with the patient. All questions were answered and informed consent was obtained. Patient identification and proposed procedure were verified by the physician, the nurse and the anesthesiologist in the procedure room. Mental Status Examination: alert and oriented. Airway Examination: normal oropharyngeal airway and neck mobility. Respiratory Examination: clear to auscultation. CV Examination: normal. Prophylactic Antibiotics: The patient does not require prophylactic antibiotics. Prior Anticoagulants: The patient has taken no previous anticoagulant or antiplatelet agents. ASA Grade Assessment: II - A patient with mild systemic disease. After reviewing the risks and benefits, the patient was deemed in satisfactory condition to undergo the procedure. The anesthesia plan was to use monitored anesthesia care (MAC). Immediately prior to administration of medications, the patient was re-assessed for adequacy to receive sedatives. The heart rate, respiratory rate, oxygen saturations, blood pressure, adequacy of pulmonary ventilation, and response to care were monitored throughout the procedure. The physical status of the patient was re-assessed after the procedure. The Colonoscope was introduced through the anus and advanced to the terminal ileum, with identification of the appendiceal orifice and IC valve. The colonoscopy was performed without difficulty. The patient tolerated the procedure well. The quality of the bowel preparation was good. The terminal ileum, ileocecal valve, appendiceal orifice, and rectum were photographed. Scope insertion time was 4 minutes. Scope withdrawal time was 8 minutes. The total duration of the procedure was 12 minutes. Findings: The perianal and digital rectal examinations were normal. The terminal ileum appeared normal. Two sessile polyps were found in the cecum. The polyps were 6 to 8 mm in size. These polyps were removed with a cold snare. Resection and retrieval were complete. Verification of patient identification for the specimen was done by the physician and nurse using the patient's name, date and medical record number. Estimated blood loss was minimal. Multiple small-mouthed diverticula were found from descending colon to sigmoid colon. Purulent discharge was seen in association with the diverticular opening, suspicious of diverticulitis. There was no evidence of diverticular bleeding. Non-bleeding external and internal hemorrhoids were found during retroflexion. The hemorrhoids were medium-sized. Impression: - The examined portion of the ileum was normal. - Two 6 to 8 mm polyps in the cecum, removed with a cold snare. Resected and retrieved. - Moderate diverticulosis from descending to sigmoid colon. Purulent discharge was seen in association with the diverticular opening, suspicious of diverticulitis. There was no evidence of diverticular bleeding. - Non-bleeding external and internal hemorrhoids. Recommendation: - Patient has a contact number available for emergencies. The signs and symptoms of potential delayed complications were discussed with the patient. Return to normal activities tomorrow. Written discharge instructions were provided to the patient. - High fiber diet. - Continue present medications. - Await pathology results. - Miralax 1 capful (17 grams) in 8 ounces of water PO daily for 7 days. - Cipro (ciprofloxacin) 500 mg PO BID for 5 days. - Flagyl (metronidazole) 500 mg PO TID for 5 days. - Repeat colonoscopy in 5-10 years for surveillance based on pathology results. - Based on the biopsy results you will receive a phone call from GI clinic in 2-3 weeks to review the pathology results AND/OR your results will be faxed to your Primary care physician. - Return to primary care physician. Terry Stafford MD Terry Stafford MD 03/22/2019 8:37:07 AM Electronically signed by Terry Stafford MD Number of Addenda: 0 Note Initiated On: 03/22/2019 7:56 AM Estimated Blood Loss: Estimated blood loss was minimal.
[2019-03-22 08:50] VITALS: BP 138/69
== END 2019-03-22 09:40 | disposition home or self-care (01) ==
LOC: M OPP 06:54
PROVIDERS: ATTEND Internal Medicine Gastroenterology
DX: D12.0 Benign neoplasm of cecum (principal); K57.30 Diverticulosis of large intestine without perforation or abscess without bleeding; K64.8 Other hemorrhoids; Z12.11 Encounter for screening for malignant neoplasm of colon

== ENCOUNTER → 2019-05-26 | Outpatient (REF) | payer OTHER ==
[2019-05-26 15:57] LABS: BASO # 0.1 10^3/uL (0.0-0.2); BASO % 1.2 % (0.0-1.0); EOS # 0.3 10^3/uL (0.0-0.50); EOS % 3.6 % (0.0-3.0); HEMATOCRIT 33.7 % (36.0-47.0); LYMPH # 1.7 10^3/uL (1.5-4.5); LYMPH % 22.6 % (24.0-44.0); MEAN CORPUSCULAR HEMOGLOBIN 29.9 pg (27.0-33.0); MEAN CORPUSCULAR HGB CONC 32.6 g/dl (32.0-36.5); MEAN CORPUSCULAR VOLUME 91.6 fl (80.0-96.0); MONO # 0.8 10^3/uL (0.0-0.8); MONO % 10.1 % (0.0-5.0); NEUTROPHILS # 4.8 10^3/uL (1.8-7.7); NEUTROPHILS % 62.2 % (36.0-66.0); PLATELET COUNT, AUTOMATED 384 10^3/uL (150-450); RED BLOOD COUNT 3.68 10^6/uL (4.00-5.40); WHITE BLOOD COUNT 7.7 10^3/uL (4.0-10.0)
[2019-05-26 16:20] LABS: ALBUMIN 3.9 GM/DL (3.2-5.2); ALT/SGPT 33 U/L (12-78); BILIRUBIN,TOTAL 0.7 MG/DL (0.2-1.0); BLOOD UREA NITROGEN 34 MG/DL (7-18); CALCIUM LEVEL 9.2 MG/DL (8.5-10.1); CARBON DIOXIDE LEVEL 29 MEQ/L (21-32); CHLORIDE LEVEL 105 MEQ/L (98-107); CREATININE FOR GFR 0.93 MG/DL (0.55-1.30); FREE T4 1.06 NG/DL (0.76-1.46); GLOMERULAR FILTRATION RATE > 60.0 (>51); GLUCOSE, FASTING 87 MG/DL (70-100); SODIUM LEVEL 139 MEQ/L (136-145); TOTAL 25(OH) VITAMIN D 42.7 NG/ML (30.0-100.0); TOTAL PROTEIN 7.1 GM/DL (6.4-8.2)
== END ==
LOC: M SFHCPLAZ 13:23
PROVIDERS: ATTEND Physician Assistant Medical
DX: Z13.220 Encounter for screening for lipoid disorders (principal); Z13.29 Encounter for screening for other suspected endocrine disorder; E55.9 Vitamin D deficiency, unspecified

== ENCOUNTER 2019-07-25 13:29 | Emergency (ER) | payer OTHER ==
[~2019-07-25] VITALS: Ht 175.3 cm; Wt 110.8 kg
[~2019-07-25 13:29] MED LIST changes: +LISI10TA15 PO; -LISI10TA2 PO
[2019-07-25 15:52] LABS: BASO # 0.1 10^3/uL (0.0-0.2); BASO % 0.9 % (0.0-1.0); EOS # 0.2 10^3/uL (0.0-0.5); HEMATOCRIT 39.2 % (36.0-47.0); LYMPH # 1.9 10^3/uL (1.5-5.0); LYMPH % 24.5 % (24.0-44.0); MEAN CORPUSCULAR HEMOGLOBIN 30.7 pg (27.0-33.0); MEAN CORPUSCULAR HGB CONC 33.2 g/dl (32.0-36.5); MEAN CORPUSCULAR VOLUME 92.7 fl (80.0-96.0); MONO # 0.9 10^3/uL (0.0-0.8); MONO % 11.1 % (0.0-5.0); NEUTROPHILS # 4.7 10^3/uL (1.5-8.5); NEUTROPHILS % 60.2 % (36.0-66.0); PLATELET COUNT, AUTOMATED 335 10^3/uL (150-450); RED BLOOD COUNT 4.23 10^6/uL (4.00-5.40); WHITE BLOOD COUNT 7.8 10^3/uL (4.0-10.0)
[2019-07-25 16:21] LABS: ALBUMIN 4.1 GM/DL (3.2-5.2); ALT/SGPT 48 U/L (12-78); BILIRUBIN,DIRECT 0.3 MG/DL (0.0-0.2); BILIRUBIN,TOTAL 1.6 MG/DL (0.2-1.0); BLOOD UREA NITROGEN 25 MG/DL (7-18); CALCIUM LEVEL 9.5 MG/DL (8.5-10.1); CARBON DIOXIDE LEVEL 30 MEQ/L (21-32); CHLORIDE LEVEL 102 MEQ/L (98-107); CK-MB VALUE MASS < 1.0 NG/ML (<3.6); CPK CREATINE PHOSPHOKINASE 296 U/L (26-192); CREATININE FOR GFR 1.02 MG/DL (0.55-1.30); GLOMERULAR FILTRATION RATE 59.7 (>51); GLUCOSE, FASTING 104 MG/DL (70-100); LIPASE 194 U/L (73-393); MB/CK RELATIVE INDEX 0.34 (< OR =4); SODIUM LEVEL 140 MEQ/L (136-145); TOTAL PROTEIN 7.5 GM/DL (6.4-8.2); TROPONIN I < 0.02 NG/ML (< 0.10)
[2019-07-25] MEDS ORDERED: ISOVUE-370 76% 100ML VIAL (Q9967) As Ordered ONE (17:08)
[2019-07-25] MEDS ORDERED: NS 1,000 ML IV ONE (17:15)
[2019-07-25] MEDS ORDERED: ONDANSETRON 4MG/2ML VIAL (J2405) IV ONE (17:15)
[2019-07-25] MEDS ORDERED: KETOROLAC 30 MG/ML VIAL (J1885) IV ONE (17:15)
--- NOTE | 2019-07-25 17:20 | REP ---
CHEST: Two views. There is no evidence of acute infiltrate. No pleural effusion is seen. The heart is normal in size. The mediastinal silhouette is unremarkable. The visualized osseous structures are intact. IMPRESSION: No acute pulmonary disease. Electronically Signed by Gavino Biswas MD 07/27/2019 09:54 A
--- NOTE | 2019-07-25 17:54 | REPVR ---
EXAM: CT Angiography Chest With Contrast EXAM DATE/TIME: 07/25/2019 5:27 PM CLINICAL HISTORY: 58 years old, female; Chest pain; Additional info: Elevated dimer, cp TECHNIQUE: Imaging protocol: Computed tomographic angiography of the chest with intravenous contrast. 3D rendering: MIP reconstructed images were created and reviewed. Radiation optimization: All CT scans at this facility use at least one of these dose optimization techniques: automated exposure control; mA and/or kV adjustment per patient size (includes targeted exams where dose is matched to clinical indication); or iterative reconstruction. Contrast material: ISOVUE 370; Contrast volume: 100 ml; Contrast route: IV; COMPARISON: CT ANGIO CHEST 08/29/2016 11:33 PM FINDINGS: Pulmonary arteries: Normal. No pulmonary emboli. Aorta: Unremarkable. No aortic aneurysm. No aortic dissection. Lungs: Unremarkable. No consolidation. No masses. Pleural space: Unremarkable. No pneumothorax. No pleural effusion. Heart: Unremarkable. No cardiomegaly. No pericardial effusion. Lymph nodes: Unremarkable. No enlarged lymph nodes. Bones/joints: Metallic anchors in the left humeral head. Mild degenerative change of the spine. Soft tissues: Unremarkable. IMPRESSION: No evidence of pulmonary embolism. Electronically signed by: Adele Rivero On 07/25/2019 17:54:18 PM
--- NOTE | 2019-07-25 18:01 | REPVR ---
EXAM: CT Abdomen and Pelvis With Contrast EXAM DATE/TIME: 07/25/2019 5:27 PM CLINICAL HISTORY: 58 years old, female; Abdominal pain; Generalized; Additional info: Elevated dimer, cp TECHNIQUE: Imaging protocol: Computed tomography of the abdomen and pelvis with intravenous contrast. Radiation optimization: All CT scans at this facility use at least one of these dose optimization techniques: automated exposure control; mA and/or kV adjustment per patient size (includes targeted exams where dose is matched to clinical indication); or iterative reconstruction. Contrast material: ISOVUE 370; Contrast volume: 100 ml; Contrast route: IV; COMPARISON: No relevant prior studies available. FINDINGS: Mediastinum: Tiny sliding hiatal hernia. Liver: Mild hepatomegaly. Gallbladder and bile ducts: Normal. No calcified stones. No ductal dilation. Pancreas: Normal. No ductal dilation. Spleen: Normal. No splenomegaly. Adrenals: Normal. No mass. Kidneys and ureters: Normal. No hydronephrosis. Stomach and bowel: Interposition of the hepatic flexure of the colon between the liver and the ventral abdominal wall. No bowel obstruction. Appendix: No evidence of appendicitis. Intraperitoneal space: Unremarkable. No free air. No significant fluid collection. Vasculature: Unremarkable. No abdominal aortic aneurysm. Lymph nodes: Unremarkable. No enlarged lymph nodes. Bladder: Trace gas within the urinary bladder. Reproductive: Unremarkable as visualized. Bones/joints: Degenerative change of the spine. Mild right sacroiliac joint DJD. Mild bilateral hip joint DJD. Soft tissues: Unremarkable. IMPRESSION: 1. Trace gas within the urinary bladder. Correlate for recent instrumentation. If clinically warranted, correlate with urinalysis. 2. Mild hepatomegaly. 3. Tiny sliding hiatal hernia. Electronically signed by: Adele Rivero On 07/25/2019 18:01:33 PM
--- NOTE | 2019-07-25 18:48 | REPVR ---
EXAM: CT Cervical Spine Without Contrast EXAM DATE/TIME: 07/25/2019 6:30 PM CLINICAL HISTORY: 58 years old, female; Neck pain; Additional info: R/O bulging disc, nerve impingement TECHNIQUE: Imaging protocol: Computed tomography images of the cervical spine without contrast. Radiation optimization: All CT scans at this facility use at least one of these dose optimization techniques: automated exposure control; mA and/or kV adjustment per patient size (includes targeted exams where dose is matched to clinical indication); or iterative reconstruction. COMPARISON: CT Spine,cervical w/o contrast 10/08/2016 9:07 PM FINDINGS: Vertebrae: Moderate bilateral posterior facet joint arthropathy at T2-T3. Mild bilateral posterior facet joint arthropathy at C6-C7. Mild right neural foraminal narrowing at C3-C4. Mild right neural foraminal narrowing at C4-C5. Mild right and moderate to severe left neural foraminal narrowing at C5-C6. Mild bilateral neural foraminal narrowing at C6-C7. No acute fracture. Slight reversal of the normal cervical lordosis. Moderate degenerative endplate changes at C4-C5 through C6-C7. Discs/Spinal canal/Neural foramina: Intervertebral discs would be better assessed with MRI. Small dorsal osteophytes result in mild spinal canal stenosis at C4-C5, C5-C6, and C6-C7. Mild degenerative change at the atlantodental articulation. Moderate disc space narrowing at C4-C5, C5-C6, and C6-C7. Soft tissues: Unremarkable. Lungs: Lung apices are normal. IMPRESSION: 1. Multilevel spinal canal stenosis and neural foraminal narrowing, as above. Consider further evaluation with MRI to better evaluate the intervertebral discs. 2. Degenerative endplate changes and disc space narrowing. 3. Slight reversal of the normal cervical lordosis. Electronically signed by: Adele Rivero On 07/25/2019 18:48:34 PM
[2019-07-25] MEDS ORDERED: LIDOCAINE 5% (LIDODERM) PATCH TD ONE (19:45)
[2019-07-25] MEDS ORDERED: MACR100C43 PO (19:47)
[2019-07-25 19:59] VITALS: BP 123/58
[2019-07-25] MEDS ORDERED: **NOTE PATIENT COMMENT** MISC XX SCH (21:00)
--- NOTE | 2019-07-26 19:18 | ECGEPIP ---
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
--- NOTE | 2019-08-02 13:04 | ED PDOC ---
Post-Departure Follow-Up zakia almaguer faxed formal report of ct c spine for fu Marlys Leon MD Aug 02, 2019 13:04
== END 2019-07-25 20:30 | disposition home or self-care (01) ==
LOC: M ED 13:29
DX: M94.0 Chondrocostal junction syndrome [Tietze] (principal); N39.0 Urinary tract infection, site not specified; E86.0 Dehydration; M48.00 Spinal stenosis, site unspecified; E11.9 Type 2 diabetes mellitus without complications; I10 Essential (primary) hypertension; K21.9 Gastro-esophageal reflux disease without esophagitis; F41.9 Anxiety disorder, unspecified; Z88.0 Allergy status to penicillin; Z79.84 Long term (current) use of oral hypoglycemic drugs; Z79.899 Other long term (current) drug therapy
CPT/HCPCS: 71046; 71275; 72125; 74177; 80048; 80076; 81001; 82550; 82553; 83605; 83690; 85025; 85379; 87086; 93005; 96374; 96375; 99284; J1885; J2405; Q9967

== ENCOUNTER → 2020-01-04 | Outpatient (CLI) | payer OTHER ==
[~2020-01-04] MED LIST changes: +CLON0.5T2 PO; -CLON0.5T8 PO; +MACR100C43 PO
[2020-01-04 15:39] LABS: HEMATOCRIT 39.1 % (36.0-47.0); HEMOGLOBIN 12.9 g/dl (12.0-15.5); MEAN CORPUSCULAR HEMOGLOBIN 30.1 pg (27.0-33.0); MEAN CORPUSCULAR VOLUME 91.1 fl (80.0-96.0); PLATELET COUNT, AUTOMATED 314 10^3/uL (150-450); RED BLOOD COUNT 4.29 10^6/uL (4.00-5.40); WHITE BLOOD COUNT 6.8 10^3/uL (4.0-10.0)
[2020-01-04 15:52] LABS: INR 1.02; PROTHROMBIN TIME 13.1 SECONDS (11.8-14.0)
--- NOTE | 2020-01-04 15:52 | REP ---
Clinical: Osteoarthritis . Comparison: 07/25/2019 . Technique: PA and lateral. Findings: The mediastinum and cardiac silhouette are normal. The lung mccarthy are clear and without acute consolidation, effusion, or pneumothorax. The skeletal structures are intact and normal. Evidence of prior left shoulder repair. Impression: 1. No acute cardiopulmonary process. Electronically Signed by Feliberto Dailey MD 01/04/2020 03:43 P
[2020-01-04 16:11] LABS: ALBUMIN 4.2 GM/DL (3.2-5.2); ALT/SGPT 79 U/L (12-78); BILIRUBIN,TOTAL 1.3 MG/DL (0.2-1.0); BLOOD UREA NITROGEN 25 MG/DL (7-18); CALCIUM LEVEL 9.5 MG/DL (8.5-10.1); CARBON DIOXIDE LEVEL 31 MEQ/L (21-32); CHLORIDE LEVEL 105 MEQ/L (98-107); CREATININE FOR GFR 0.93 MG/DL (0.55-1.30); GLOMERULAR FILTRATION RATE > 60.0 (>51); GLUCOSE, FASTING 91 MG/DL (70-100); POTASSIUM SERUM 4.2 MEQ/L (3.5-5.1); SODIUM LEVEL 140 MEQ/L (136-145); TOTAL PROTEIN 7.5 GM/DL (6.4-8.2)
[2020-01-04 16:20] LABS: ERYTHROCYTE SEDIMENTATION RATE 36 mm/hr (0-30)
--- NOTE | 2020-01-05 22:02 | ECGEPIP ---
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 No significant change compared with 07/25/2019. Electronically Signed on 01-05-2020 22:02:29 EST by Drew Santana
== END ==
LOC: M LAB 14:55
PROVIDERS: ATTEND Orthopaedic Surgery
DX: Z01.818 Encounter for other preprocedural examination (principal); M17.11 Unilateral primary osteoarthritis, right knee

== ENCOUNTER 2020-01-25 06:42 | Inpatient (IN) | payer OTHER ==
--- NOTE | 2020-01-23 11:15 | HPE ---
DATE OF ADMISSION: 01/25/2020 ATTENDING PHYSICIAN: Dr. Mir CHIEF COMPLAINT: Right knee pain and stiffness. HISTORY: The patient is a pleasant 59-year-old female with progressively worsening right knee pain and stiffness. She failed to improve with conservative measures. She continues to have symptoms with weightbearing activities and activities of daily living. She consented for an elective right total knee arthroplasty with Dr. Mir for her continued symptoms. Medical optimization completed with Dr. Green and was reviewed during today's visit. CURRENT MEDICATIONS: - Ventolin inhaler two puffs as needed twice daily - Zyrtec 10 mg daily - metformin 500 mg once daily - gabapentin 300 mg three times daily - tizanidine 4 mg as needed three times daily - meloxicam 7.5 mg twice daily - lisinopril/hydrochlorothiazide 10/12.5 mg daily - vitamin D 50,000 units weekly - Lexapro 20 mg daily - Lipitor 20 mg daily - clonazepam 0.5 mg twice daily - calcium carbonate 100 mg antacid tablet twice daily - nystatin ointment twice daily as needed ALLERGIES: 1. PENICILLIN. CHRONIC MEDICAL CONDITIONS: Hypertension. Dysthymia. Insomnia. Recurrent intertriginous candidiasis. Stress incontinence. Menopausal symptoms. Obesity. History of nephrolithiasis. Gilbert's disease. Obstructive sleep apnea on APAP. PAST SURGICAL HISTORY: Rotator cuff repair. Bladder repair. Tonsillectomy. Open reduction internal fixation (ORIF) for an ankle injury. Right rotator cuff tear. Tubal ligation. Left total knee arthroplasty. SOCIAL HISTORY: The patient does not use tobacco and occasionally uses alcohol. REVIEW OF SYSTEMS: The patient denies fevers, chills, nausea, vomiting or diarrhea. She denies chest pain, shortness of breath, lightheadedness, dizziness or headaches. She denies abdominal pain. She denies any recent upper respiratory or urinary tract infection symptoms. The patient continues to have right knee pain with weightbearing activities and activities of daily living. PHYSICAL EXAMINATION: GENERAL: Well-nourished, well-developed female in no apparent distress. She is alert, oriented and cooperative. Mood and affect are appropriate. VITAL SIGNS: 5 feet 9 inches, 260.4 pounds, temperature 97.9, blood pressure 110/70, respirations 14, heart rate 57. NECK: Supple without lymphadenopathy. HEART: Regular rate and rhythm. LUNGS: Clear to auscultation bilaterally. ABDOMEN: Bowel sounds are present. Abdomen is soft and nontender to palpation. MUSCULOSKELETAL: Right knee does exhibit a very minimal amount of diffuse edema without erythema or warmth. The patient can extend knee fully and flex to approximately 110 degrees. Strength of the right lower extremity is 5/5. There is tenderness along the medial joint line. The patient has no hip irritability with range of motion testing. Calf is soft, nontender to palpation with no palpable cords noted. She is neurovascularly intact distally. LABORATORY DATA: EKG sinus bradycardia. Chest x-ray no acute cardiopulmonary process. Right knee x-ray notable for end-stage degenerative changes. Complete blood count: Erythrocyte sedimentation rate elevated at 36, WBCs 6.8, RBCs 4.29, hemoglobin 12.9, hematocrit 39.1, platelets 314. Comprehensive metabolic profile: Fasting glucose 91, BUN elevated at 29, creatinine 0.93, GFR greater than 60, sodium 140, potassium 4.2, chloride 105, carbon dioxide 31, anion gap decreased at 4, calcium 9.5, AST 36, ALT elevated at 79, alkaline phosphatase elevated at 152, total bilirubin elevated at 1.3, total protein 7.5, albumin 4.2, albumin-globulin ratio 1.27. Prothrombin time 13.1, INR 1.02. IMPRESSION: Right knee osteoarthritis with x-rays notable for end-stage degenerative changes. PLAN: Patient consented for an elective right total knee arthroplasty with Dr. Mir for her continued symptoms. Medical optimization completed with Dr. Green. Reviewed pre and postoperative instructions to include but not limited to need to be n.p.o. after midnight, length of stay, when to stop anti-inflammatories, aspirin and anticoagulants. We also discussed recommendations for following primary nursing care partner's or tab card press operator recommendations on how to take there daily medications. RIZWAN
[2020-01-25] VITALS (8 sets, daily range): BP systolic 125–164; BP diastolic 72–124; O2SAT 93–100
[~2020-01-25] VITALS: Ht 176.5 cm; Wt 120.1 kg
[~2020-01-25 06:42] MED LIST changes: +MELO15TA28 PO; +VITA200028 PO; +fentaNYL 100 MCG/2 ML INJECTION (J3010) IV SCH
[2020-01-25] MEDS ORDERED: VANCOMYCIN HCL 1,000 MG, VIAL MATE ADAPTER 1 EACH in D5W 250 ML IV ONE (07:00)
[2020-01-25] MEDS ORDERED: ACETAMINOPHEN 500 MG TAB PO ONE (07:00)
[2020-01-25] MEDS ORDERED: LR 1,000 ML IV ONE (07:00)
[2020-01-25] MEDS ORDERED: VANCOMYCIN HCL 500 MG in D5W MINI-BAG PLUS 100 ML IV ONE (07:00)
[2020-01-25] MEDS ORDERED: CLINDAMYCIN INJ 900MG/6ML VIAL As Ordered ONE (08:04)
[2020-01-25] MEDS ORDERED: EPINEPHrine INJ 1 MG/ML 1ML VIAL As Ordered ONE (08:04)
[2020-01-25] MEDS ORDERED: TRANEXAMIC ACID 100 MG/ML 10ML VIAL As Ordered ONE (08:04)
[2020-01-25] MEDS ORDERED: BUPIVACAINE HCL 0.25% 10 ML VIAL As Ordered ONE (08:04)
[2020-01-25] MEDS ORDERED: BUPIVACAINE LIPOSOME/PF 1.3% 20ML VIAL (13.3MG/ML)(EXPAREL)(C9290 PER1MG) As Ordered ONE (08:05)
[2020-01-25] MEDS ORDERED: MIDAZOLAM INJ 2 MG/2 ML VIAL (J2250) As Ordered ONE ×2 (08:16→09:31)
[2020-01-25] MEDS ORDERED: fentaNYL 100 MCG/2 ML INJECTION (J3010) As Ordered ONE ×4 (08:16→11:26)
[2020-01-25] MEDS: MIDAZOLAM INJ 2 MG/2 ML VIAL (J2250) IV SCH ×2 (08:28→08:31)
[2020-01-25] MEDS ORDERED: ONDANSETRON 4MG/2ML VIAL (J2405) As Ordered ONE (09:31)
[2020-01-25] MEDS ORDERED: LIDOCAINE 2% INJ 100 MG/5 ML SDV (FOR ANES.) As Ordered ONE (09:31)
[2020-01-25] MEDS ORDERED: propofoL 500 MG/50 ML VIAL As Ordered ONE (09:31)
[2020-01-25] MEDS ORDERED: propofoL 200 MG/20 ML VIAL As Ordered ONE ×2 (09:54→10:36)
[2020-01-25] MEDS ORDERED: dexameTHASONE 10 MG/1 ML VIAL PRES.FREE (J1100) ONE (11:00)
[2020-01-25] MEDS ORDERED: EPINEPHrine INJ 1 MG/ML 1ML VIAL ONE (11:00)
[2020-01-25] MEDS ORDERED: ROPIvacaine 0.5% 30 ML INJECTION (J2795 PER 1MG) ONE (11:00)
[2020-01-25] MEDS ORDERED: LR 1,000 ML IV SCH ×2 (11:15→12:00)
[2020-01-25] MEDS ORDERED: MORPHINE 2 MG/ML 1ML VIAL (J2270) IV PRN ×2 (11:15→12:00)
[2020-01-25] MEDS ORDERED: ONDANSETRON 4MG/2ML VIAL (J2405) IV PRN ×2 (11:15→12:00)
[2020-01-25] MEDS: fentaNYL 100 MCG/2 ML INJECTION (J3010) IV PRN ×4 (11:30→11:50)
[2020-01-25] MEDS: PERCOCET 5MG/325MG TAB PO PRN ×5 (11:44→20:04)
[2020-01-25] MEDS ORDERED: ACETAMINOPHEN TAB 650MG DOSE (2X325MG) PO PRN (12:00)
--- NOTE | 2020-01-25 13:14 | REP ---
Portable right knee, 2 views, post-op: There is a total knee arthroplasty. The components are tightly applied and in satisfactory positions alignment. Skin gagandeep are incidentally noted. Electronically Signed by Gavino Woods MD 01/25/2020 01:05 P
[2020-01-25] MEDS: MORPHINE 4 MG/ML 1ML VIAL/SYRINGE (J2270) IV PRN ×2 (13:56→16:01)
[2020-01-25] MEDS ORDERED: GLUCOSE 4 GM CHEW TABLET PO PRN (14:45)
[2020-01-25] MEDS ORDERED: DEXTROSE 50% 50 ML SYRINGE IV PRN (14:45)
[2020-01-25] MEDS ORDERED: GLUCAGON FOR INJ 1 MG VIAL (J1610) SC PRN (14:45)
--- NOTE | 2020-01-25 14:46 | CR.PDOC ---
General Date of Consultation: Jan 25, 2020 Consultation REASON FOR CONSULTATION/CHIEF COMPLAINT: Management of medical comorbidities , following right total knee arthroplasty per Dr. Calvert. HISTORY OF PRESENT ILLNESS: Patient reported that she has had pain in the right knee for some time now. She has failed several outpatient treatments. The pain in her knee has been worsening steadily over the past year. She reported that she had developed "bone on bone" arthritis in the knee. Her insurance did not cover the rooster shots. As a result, she has given informed consent for Dr. sanjuana gilbert to perform a right total knee replacement today. Patient is seen in recovery this afternoon she reported that she is doing fine other than some mild pain in the right knee. She had just been maneuvered for toileting , which precipitated her discomfort. ALLERGIES: Please see below. HOME MEDICATIONS: Please see below. PAST MEDICAL HISTORY: 1. Hypertension. 2. Obstructive sleep apnea, on APAP at home. 3. Obesity 4. Insomnia. 5. Dysthymia. 6. Gilbert's disease. 7. Stress incontinence. 8. Diabetes. 9. Hyperlipidemia 10. Anxiety PAST SURGICAL HISTORY: 1. Total left knee replacement 2017 2. Bladder repair. 3. Bilateral rotator repair 4. OR I F for broken ankle 2005. 5. Tubal ligation 1993 6. Remote history of tonsillectomy FAMILY HISTORY: Father: , ruptured aortic aneurysm, diabetes, hypertension, heart disease, stroke Mother: , embolus to the heart Siblings: Sisterdiabetes SOCIAL HISTORY: Tobacco use: Denied ETOH: Denied Illicit drug use: Denied REVIEW OF SYSTEMS: Constitutional: Denies: Chills, Fever, Night Sweats Eyes: Denies: Pain ENT: Denies: Head Aches Skin: Denies: Rash Pulmonary: Denies: Dyspnea, Cough Cardiovascular: Denies: Chest Pain, Palpitations, Orthopnea, Paroxysmal Noc. Dyspnea, Lt Headedness Gastrointestinal: Denies: Nausea, Vomiting, Abdominal Pain, Diarrhea Genitourinary: Denies: Dysuria Musculoskeletal: Resports: mild/moderate pain in the R knee Denies: Neck Pain, Back Pain, Joint Pain, Muscle Pain, Spasms Neurological: Denies: Weakness, Numbness Psych: Reports: Mood Normal PHYSICAL EXAMINATION: VITAL SIGNS: Please see below. General: No acute distress, Alert Eyes: Normal sclera, EOMI, PERLLA HENT: Atraumatic, neck supple, moist mucous membranes Cardiovascular: Normal rate, normal rhythm. No murmurs appreciated. Pulmonary: Clear to auscultation b/l, no wheezing GI: Soft, nontender, nondistended Skin: Warm and dry Neuro: CN grossly intact. No focal deficits. Strengths equal b/l. Psych: oriented x 3. LABORATORY DATA: Please see below. ASSESSMENT/PLAN: 1. Right total knee arthroplasty. Management per orthopedics. Pain management per orthopedics 2. Hyperlipidemia. Continue atorvastatin. 3. Hypertension. Continue lisinopril 10 mg and hydrochlorothiazide 12.5 mg 4. Diabetes type 2. Metformin on hold Insulin sliding scale with fasting blood sugar achs Consistent carbohydrate diet 5. Gilbert's disease. Check CMP tomorrow and monitor bilirubin while inpatient 6. Obstructive sleep apnea Use home APAP 7. Anxiety. Continue home anxiolytic. 8. Obesity. Complicates care Vital Signs/I&O Vital Signs Date Time Temp Pulse Resp B/P (MAP) Pulse Ox O2 Delivery O2 Flow Rate FiO2 01/25/20 13:56 16 Room Air 01/25/20 12:01 97.5 64 128/68 (88) 98 01/25/20 08:40 2 Laboratory Data Labs 24H Laboratory Tests 2 01/25/20 08:11: Bedside Glucose (Misc Panel) 124H 01/25/20 11:08: Bedside Glucose (Misc Panel) 122H Allergies Coded Allergies: Penicillins (Verified Allergy, Severe, swelling itching, 01/25/20) Home Medications Scheduled Atorvastatin Calcium (Atorvastatin Calcium) 20 Mg Tablet, 20 MG PO DAILY, (Reported) Clonazepam (Clonazepam) 0.5 Mg Tab, 1 TAB PO BID, #60 (Reported) Ergocalciferol (Vitamin D2) (Vitamin D2) 2,000 Unit Tablet, 50,000 UNIT PO QWEEK, (Reported) Escitalopram Oxalate (Escitalopram Oxalate) 20 Mg Tab, 1 TAB PO DAILY, #30 (Reported) Gabapentin (Gabapentin) 300 Mg Capsule, 300 MG PO QHS for 5 Days, #5 (Reported) Lisinopril/Hydrochlorothiazide (Lisinopril-Hctz 10-12.5 mg Tab) 1 Each Tablet, 1 TAB PO DAILY, (Reported) Meloxicam (Meloxicam) 15 Mg Tablet, 15 MG PO BID, (Reported) Metformin HCl (Metformin HCl) 500 Mg Tablet, 500 MG PO QPM, (Reported) Scheduled PRN Tizanidine HCl (Tizanidine HCl) 4 Mg Capsule, 4 MG PO TIDP PRN for MUSCLE SPASMS, (Reported) SARAH VAUGHAN PA-C Jan 25, 2020 14:46
[2020-01-25] MEDS: ATORVASTATIN 20 MG TAB PO SCH (16:01)
[2020-01-25] MEDS: HumaLOG INSULIN (NovoLOG) PER UNIT SC SCH (17:41)
[2020-01-25] MEDS: clonazePAM 0.5 MG TAB PO SCH (20:03)
[2020-01-25] MEDS: VANCOMYCIN HCL 1,000 MG, VIAL MATE ADAPTER 1 EACH in D5W 250 ML IV SCH (20:04)
[2020-01-26] MEDS: MORPHINE 4 MG/ML 1ML VIAL/SYRINGE (J2270) IV PRN (00:09)
[2020-01-26 01:40] VITALS: BP 152/86
[2020-01-26] MEDS: PERCOCET 5MG/325MG TAB PO PRN (03:18)
[2020-01-26] MEDS ORDERED: PERCOCET 5MG/325MG TAB PO PRN ×2 (05:45)
[2020-01-26] MEDS ORDERED: ACETAMINOPHEN TAB 650MG DOSE (2X325MG) PO SCH (06:00)
[2020-01-26] MEDS: ACETAMINOPHEN 500 MG TAB PO SCH ×3 (06:08→21:10)
[2020-01-26 06:15] VITALS: BP 140/81
[2020-01-26] MEDS: traMADol 50 MG TAB PO PRN ×2 (06:38→12:53)
[2020-01-26] MEDS ORDERED: XARE10TA PO (06:54)
[2020-01-26] MEDS ORDERED: MORP15TASA PO (06:54)
[2020-01-26] MEDS ORDERED: TRAM50TA2 PO (06:54)
[2020-01-26 07:29] LABS: HEMATOCRIT 34.1 % (36.0-47.0); HEMOGLOBIN 11.6 g/dl (12.0-15.5); MEAN CORPUSCULAR HEMOGLOBIN 30.6 pg (27.0-33.0); PLATELET COUNT, AUTOMATED 355 10^3/uL (150-450); RED BLOOD COUNT 3.79 10^6/uL (4.00-5.40); WHITE BLOOD COUNT 14.8 10^3/uL (4.0-10.0)
--- NOTE | 2020-01-26 08:05 | RO ---
DATE OF PROCEDURE: 01/25/2020 PREPROCEDURE DIAGNOSIS: Right knee valgus degenerative arthritis. POSTPROCEDURE DIAGNOSIS: Right knee valgus degenerative arthritis. PROCEDURE: Right total knee arthroplasty using a Size 6 cruciate retaining cemented femoral component with a size 7 tibial tray and an 8 mm rotating platform polyethylene insert, 35 mm polyethylene button. All components were cemented. Prosthesis made by [employer]. It was an Attune knee. SURGEON: Dr. Nhi Mir LAND CLEARER: Ms. Evelia Cheng ANESTHESIA: Spinal with right femoral nerve block. COMPLICATIONS: None. SPECIMEN: Joint surface. ESTIMATED BLOOD LOSS: 20 mL. DESCRIPTION OF PROCEDURE: Antibiotics were given intravenously preoperatively and a successful right femoral nerve block and then spinal anesthetic was induced. A tourniquet was placed on the right upper thigh and not inflated. The right lower extremity was carefully prepped and draped in the usual sterile fashion and elevated. After appropriate time out, the tourniquet was inflated. A longitudinal incision was made for a medial parapatellar approach to the knee. Limited subperiosteal dissection around the proximal medial portion of the tibia was performed and then a subperiosteal dissection around the proximal lateral tibial plateau was performed. We then everted the patella and flexed the knee. We debrided the anterior cruciate ligament (ACL). We placed the drill down the center of the femoral canal, followed by the intramedullary junior and the distal femoral cutting jig set at 5 degrees valgus cut at 9 mm resection level for a right knee. There was quite a bit of wear on the lateral femoral condyle and I removed the junior and the jig to remove the cartilage from the medial femoral condyle to allow the distal femoral cutting jig to sit more flush. It was pinned into position and then the distal femoral cut performed. The AP sizing jig was placed and 3 degrees of external rotation were made to sure to have been dialed in. We sized it for a size 6 femoral component. The 3 degrees external rotation pins were placed, followed by the 4-in-1 block and the anterior, posterior, and chamfer cuts were performed. We then placed the sulcus cut jig for the sulcus osteotomy and then we exposed the proximal tibia and used the extramedullary alignment jig to estimate being parallel to the mechanical axis referencing off the lateral tibial condyle at 4 mm resection level. The block was pinned into position and then secondary check with the extramedullary junior confirmed we appeared to be parallel to the mechanical axis. Thus, the proximal tibial osteotomy was performed with the appropriate slope dialed in. We then placed the lamina demolition engineer medially and performed a completion lateral meniscectomy with debridement of posterior lateral osteophytes. Then placed the lamina demolition engineer laterally and performed a completion medial meniscectomy with debridement of posterior medial osteophytes. Sizing spacers were placed and the 8 mm fit the best with good symmetry in flexion and extension and to varus and valgus stress testing. Thus, we exposed the proximal tibia and sized for a 7 tibial tray which was pinned into position, followed by the reamer and the broach. The trial 8 mm polyethylene insert was placed, followed by the trial femoral component. We brought the knee into extension, everted the patella, performed a patellar osteotomy and sized for a 35 button. Lug holes drilled, trial was placed. Patellofemoral tracking was anatomic. She had good stability with this construct, thus we decided to use these components. All the trials were then removed after drilling the lug holes for the femur. We copiously pulsatile lavage irrigated out the knee joint and all the bony surfaces. Exparel was placed in the subperiosteal tissues around the distal femur and proximal tibia. Then, Ms. Evelia Cheng mixed the cement on the back table as I prepared the bony surfaces for cementing with continued pulsatile lavage irrigant solution and drying thoroughly of all the bony surfaces. Ms. Evelia Cheng was also critical to the success of this difficult surgery by helping with appropriate soft tissue retraction, helping to mix the cement, helping to flex and extend the knee as needed, helping to close the wound and prepare the patient, amongst many other tasks to allow me to perform the operation smoothly, efficiently and safely. Once all the bony surfaces were thoroughly dried, we cemented the tibial tray, removed excess cement, placed the polyethylene, then cemented the femoral component, removed excess cement, brought the knee into extension, cemented the patellar button, removed excess cement, and held the knee in extension with a patellar clamp in position until the cement hardened. As we were awaiting this, we continued to irrigate out the knee joint and then placed tranexamic acid into the knee and then began closing the apex of the arthrotomy with two #1 PDS sutures. The medial parapatellar areas was closed with #1 PDS suture, followed by a running double armed #1 Stratafix. The tourniquet was then released after we closed the capsule. We continued to irrigate the subdermal tissues and closed them with interrupted #2-0 PDS suture. The skin was closed with gagandeep, covered by an Optifoam dressing and dry sterile bulky dressing. Then she was transferred to the recovery room in stable condition. There were no intraoperative complications.
[2020-01-26 08:13] LABS: ALBUMIN 3.6 GM/DL (3.2-5.2); ALT/SGPT 34 U/L (12-78); BILIRUBIN,TOTAL 1.4 MG/DL (0.2-1.0); BLOOD UREA NITROGEN 23 MG/DL (7-18); CALCIUM LEVEL 8.7 MG/DL (8.5-10.1); CARBON DIOXIDE LEVEL 26 MEQ/L (21-32); CHLORIDE LEVEL 104 MEQ/L (98-107); CREATININE FOR GFR 0.95 MG/DL (0.55-1.30); GLOMERULAR FILTRATION RATE > 60.0 (>51); GLUCOSE, FASTING 152 MG/DL (70-100); SODIUM LEVEL 137 MEQ/L (136-145); TOTAL PROTEIN 6.7 GM/DL (6.4-8.2)
[2020-01-26] MEDS: VANCOMYCIN HCL 1,000 MG, VIAL MATE ADAPTER 1 EACH in D5W 250 ML IV SCH (08:50)
[2020-01-26] MEDS: MIRALAX *UNIT DOSE* 17GM PACKET PO SCH (08:51)
[2020-01-26] MEDS: HumaLOG INSULIN (NovoLOG) PER UNIT SC SCH ×3 (08:51→18:12)
[2020-01-26] MEDS: MOM 30ML SUSPENSION UDC PO SCH (08:51)
[2020-01-26] MEDS: MORPHINE 15 MG SA TAB PO SCH ×2 (08:54→21:10)
[2020-01-26] MEDS: ATORVASTATIN 20 MG TAB PO SCH (08:54)
[2020-01-26] MEDS: hydroCHLOROthiazide 12.5 MG CAPSULE PO SCH (08:54)
[2020-01-26] MEDS: lisinopriL 10 MG TAB PO SCH (08:55)
[2020-01-26] MEDS: clonazePAM 0.5 MG TAB PO SCH ×2 (08:56→21:10)
[2020-01-26 14:00] VITALS: BP 140/85
--- NOTE | 2020-01-26 15:26 | IPN ---
DATE OF SERVICE: 01/26/2020 Izzy is seen on [address]. Patient of KIAH Tyson who had elected for orthopaedic surgery. She has a history of type 2 diabetes, hypertension, hyperlipidemia. She has no chest pain, shortness of breath, or palpitations. Blood pressure is well controlled and blood sugars are acceptable as well. PHYSICAL EXAMINATION: Vital signs are as listed. Lungs clear. Heart regular rate and rhythm. Abdomen soft, nontender. No peripheral edema. LABS: White count 14.8, hemoglobin 11.6. Electrolytes are unremarkable. IMPRESSION: 1. Hypertension well controlled. 2. Hyperlipidemia: Continue on atorvastatin. 3. Diabetes sliding scale insulin. Restart metformin as an outpatient. 4. Leukocytosis suspect reactive. There is no fever. She does not look as though she has an infection. Anticipate discharge tomorrow. She should restart her prior medications after discharge. Please call if there are any medical issues; we do not plan to see her tomorrow unless she develops some changes.
[2020-01-26] MEDS: RIVAROXABAN 10 MG TAB (XARELTO) PO SCH (18:12)
[2020-01-26 21:00] VITALS: O2SAT 93
[2020-01-26 22:00] VITALS: BP 125/72
[2020-01-27] MEDS: ACETAMINOPHEN 500 MG TAB PO SCH ×3 (05:07→22:14)
[2020-01-27] MEDS: traMADol 50 MG TAB PO PRN ×2 (05:07→16:04)
[2020-01-27 06:00] VITALS: BP 155/82
[2020-01-27] MEDS: MIRALAX *UNIT DOSE* 17GM PACKET PO SCH (08:23)
[2020-01-27] MEDS: HumaLOG INSULIN (NovoLOG) PER UNIT SC SCH ×3 (08:23→17:30)
[2020-01-27] MEDS: MOM 30ML SUSPENSION UDC PO SCH (08:23)
[2020-01-27] MEDS: MORPHINE 15 MG SA TAB PO SCH ×2 (08:26→21:06)
[2020-01-27] MEDS: clonazePAM 0.5 MG TAB PO SCH ×2 (08:26→21:05)
[2020-01-27] MEDS: lisinopriL 10 MG TAB PO SCH (08:26)
[2020-01-27] MEDS: hydroCHLOROthiazide 12.5 MG CAPSULE PO SCH (08:27)
[2020-01-27] MEDS: ATORVASTATIN 20 MG TAB PO SCH (08:27)
[2020-01-27] MEDS ORDERED: XARE10TA PO (11:24)
[2020-01-27] MEDS ORDERED: TRAM50TA2 PO (11:24)
[2020-01-27] MEDS ORDERED: MS C15TA8 PO (11:24)
[2020-01-27 14:00] VITALS: BP 113/74
--- NOTE | 2020-01-27 14:52 | ECGEPIP ---
[facility] Test Date: 2020-01-27 Pat Name: SHAWNA STONE Department: Room: [place] [address] Gender: Female [employer] Consultant: LISA : 1960 Requested By: Garett Templeton Order Number: [id number] Reading MD: Sarita Concepcion Measurements Intervals Point Rate: 110 P: 51 DC: 176 QRS: -9 QRSD: 85 T: 50 QT: 334 QTc: 452 Interpretive Statements SINUS TACHYCARDIA RATE FASTER NEW ST & T WAVE ABNORMALITY DECREASED VOLT PRECORDIAL LEADS NEW LEFT AXIS C/W2/19/20 Electronically Signed on 01-27-2020 14:51:55 EDT by Sarita Concepcion
[2020-01-27] MEDS: METOPROLOL SUCC *XL* 25MG TAB (TopROL *XL*) PO SCH (14:55)
[2020-01-27 15:04] LABS: HEMATOCRIT 28.9 % (36.0-47.0); HEMOGLOBIN 9.7 g/dl (12.0-15.5); MEAN CORPUSCULAR HEMOGLOBIN 30.4 pg (27.0-33.0); MEAN CORPUSCULAR HGB CONC 33.6 g/dl (32.0-36.5); MEAN CORPUSCULAR VOLUME 90.6 fl (80.0-96.0); PLATELET COUNT, AUTOMATED 332 10^3/uL (150-450); RED BLOOD COUNT 3.19 10^6/uL (4.00-5.40); WHITE BLOOD COUNT 15.7 10^3/uL (4.0-10.0)
[2020-01-27 15:30] VITALS: BP 111/66
[2020-01-27 15:32] LABS: CALCIUM LEVEL 8.5 MG/DL (8.5-10.1); CREATININE FOR GFR 1.06 MG/DL (0.55-1.30); GLOMERULAR FILTRATION RATE 56.9 (>51); MAGNESIUM LEVEL 2.2 MG/DL (1.8-2.4); POTASSIUM SERUM 3.7 MEQ/L (3.5-5.1)
[2020-01-27 15:35] LABS: CK-MB VALUE MASS < 1.0 NG/ML (<3.6); CPK CREATINE PHOSPHOKINASE 38 U/L (26-192); MB/CK RELATIVE INDEX 2.63 (< OR =4); TROPONIN I < 0.02 NG/ML (< 0.10)
[2020-01-27] MEDS ORDERED: POTASSIUM CHLORIDE 10 MEQ SR TABLET PO ONE (16:00)
--- NOTE | 2020-01-27 16:16 | IPN ---
DATE: 01/27/2020 Izzy was stable until just after lunchtime. Nurses and staff took her vital signs, and she was tachycardic. Per nursing report, her heart rate was varying from the 30s to the 150s and was irregular. Her stat EKG showed sinus rhythm/sinus tachycardia, heart rate of 110, some nonspecific ST wave abnormalities, particularly in the lateral precordial leads where the T waves are now somewhat flattened. There is no ST depression reliably present. Clinically she feels well. No chest pain, no shortness of breath. She has a history of anxiety. PHYSICAL EXAMINATION: Blood pressure 113/74, most current blood pressure is in the 150s systolic, pulse in the 90s, 97% oxygen (O2) saturation on room air. She looks comfortable, resting in bed. HEENT: Unremarkable. Lungs: Clear. Heart: Regular rhythm. Abdomen: Soft, nontender, no masses. LABORATORY: White count 15.7, hemoglobin 9.7 platelets 332. Sodium 133, potassium 3.7, BUN 23, creatinine 1.0, glucose 178. Initial troponins are negative. EKG showed sinus tachycardia, nonspecific ST-T wave abnormalities. IMPRESSION: 1. Tachycardia. Could be related to pain or anxiety. I moved her over to a telemetry bed. If no arrhythmias are found and enzymes are negative, she should be stable for discharge tomorrow. 2. Abnormal EKG. Unlikely to be ischemia. Probably from her borderline low potassium. Supplemental potassium has been given. 3. Hypertension. Systolic blood pressures are 150s. I added metoprolol ER 25 mg daily to her regimen, which already includes lisinopril 10 mg daily, hydrochlorothiazide 12.[address] Sykes will be rounding tomorrow, and if enzymes are flat and there is no arrhythmia, she should be stable for discharge from a medicine standpoint.
[2020-01-27 20:51] LABS: CK-MB VALUE MASS < 1.0 NG/ML (<3.6); CPK CREATINE PHOSPHOKINASE 44 U/L (26-192); MB/CK RELATIVE INDEX 2.27 (< OR =4); TROPONIN I < 0.02 NG/ML (< 0.10)
[2020-01-27] MEDS: RIVAROXABAN 10 MG TAB (XARELTO) PO SCH (21:06)
[2020-01-27 22:00] VITALS: BP 111/67
[2020-01-28] VITALS (9 sets, daily range): BP systolic 91–128; BP diastolic 55–70
[2020-01-28 04:44] LABS: HEMATOCRIT 28.6 % (36.0-47.0); HEMOGLOBIN 9.3 g/dl (12.0-15.5); MEAN CORPUSCULAR HEMOGLOBIN 30.2 pg (27.0-33.0); MEAN CORPUSCULAR HGB CONC 32.5 g/dl (32.0-36.5); MEAN CORPUSCULAR VOLUME 92.9 fl (80.0-96.0); RED BLOOD COUNT 3.08 10^6/uL (4.00-5.40); WHITE BLOOD COUNT 14.2 10^3/uL (4.0-10.0)
[2020-01-28 04:45] LABS: PLATELET COUNT, AUTOMATED 340 10^3/uL (150-450)
[2020-01-28 05:06] LABS: BLOOD UREA NITROGEN 27 MG/DL (7-18); CALCIUM LEVEL 8.9 MG/DL (8.5-10.1); CARBON DIOXIDE LEVEL 31 MEQ/L (21-32); CHLORIDE LEVEL 97 MEQ/L (98-107); CK-MB VALUE MASS < 1.0 NG/ML (<3.6); CPK CREATINE PHOSPHOKINASE 58 U/L (26-192); CREATININE FOR GFR 1.04 MG/DL (0.55-1.30); GLOMERULAR FILTRATION RATE 58.1 (>51); GLUCOSE, FASTING 154 MG/DL (70-100); MB/CK RELATIVE INDEX 1.72 (< OR =4); POTASSIUM SERUM 4.1 MEQ/L (3.5-5.1); SODIUM LEVEL 133 MEQ/L (136-145); TROPONIN I < 0.02 NG/ML (< 0.10)
[2020-01-28] MEDS: ACETAMINOPHEN 500 MG TAB PO SCH ×3 (06:23→22:32)
[2020-01-28 06:28] LABS: INR 1.97; PROTHROMBIN TIME 22.2 SECONDS (11.8-14.0)
[2020-01-28 06:29] LABS: PARTIAL THROMBOPLASTIN TIME 54.1 SECONDS (25.0-38.4)
[2020-01-28] MEDS: HumaLOG INSULIN (NovoLOG) PER UNIT SC SCH ×3 (08:21→18:11)
[2020-01-28] MEDS: clonazePAM 0.5 MG TAB PO SCH ×2 (08:22→21:16)
[2020-01-28] MEDS: MIRALAX *UNIT DOSE* 17GM PACKET PO SCH (08:22)
[2020-01-28] MEDS: MOM 30ML SUSPENSION UDC PO SCH (08:22)
[2020-01-28] MEDS: MORPHINE 15 MG SA TAB PO SCH ×2 (08:23→21:17)
[2020-01-28] MEDS: ATORVASTATIN 20 MG TAB PO SCH (08:23)
[2020-01-28] MEDS: lisinopriL 10 MG TAB PO SCH (08:25)
[2020-01-28] MEDS: hydroCHLOROthiazide 12.5 MG CAPSULE PO SCH (08:26)
[2020-01-28] MEDS: METOPROLOL SUCC *XL* 25MG TAB (TopROL *XL*) PO SCH (08:26)
[2020-01-28 10:37] LABS: CK-MB VALUE MASS < 1.0 NG/ML (<3.6); CPK CREATINE PHOSPHOKINASE 108 U/L (26-192); MB/CK RELATIVE INDEX 0.93 (< OR =4); TROPONIN I < 0.02 NG/ML (< 0.10)
[2020-01-28] MEDS: traMADol 50 MG TAB PO PRN (13:18)
[2020-01-28] MEDS ORDERED: NS 500 ML IV ONE (15:00)
--- NOTE | 2020-01-28 15:09 | IPNPDOC ---
Subjective Date Seen The patient was seen on 01/28/20. Subjective Chief Complaint/HPI Ms. Dinh reports that her right leg is still causing quite a bit of pain. She is discouraged that she is still bleeding. Nursing reports she is actually on the hypotensive side today with systolic blood pressure of 99 while laying down and 90 while standing. She reported some dizziness when up to go to the bathroom. They changed her right knee dressing and reported that there was still significant blood saturation. Additionally there are clots on the dressing but none seem to be organizing on the wound. General: Reports: Normal Appetite Constitutional: Denies: Chills, Fever Pulmonary: Denies: Dyspnea, Cough Cardiovascular: Denies: Chest Pain, Palpitations Genitourinary: Denies: Dysuria Hematologic: Reports: Bleeding Excessively (he is bleeding around her IV site is well as the leg) Musculoskeletal: Reports: Leg Pain (right) Psych: Reports: Mood Normal Objective Physical Examination General Exam: Positive: Alert (resting in bed with head of the bed elevated when I entered the room), Cooperative, No Acute Distress (she appears uncomfortable but is not in clinical distress) Eye Exam: Positive: Conjunctiva & lids normal; Negative: Sclera icteric ENT Exam: Positive: Mucous membr. moist/pink Neck Exam: Positive: Supple; Negative: Lymphadenopathy Chest Exam: Positive: Clear to auscultation, Normal air movement Heart Exam: Positive: Rate Normal (the time of my examination), Normal S1, Normal S2; Negative: Murmurs Telemetry: Positive: Sinus, Tachycardia Abdomen Exam: Positive: Normal bowel sounds, Soft; Negative: Tenderness Extremity Exam: Positive: Other (her right lower extremity was wrapped tightly in an Steve wrap from the mid-thornton to the mid-thigh. Her toes are neurovascularly intact. The dressing was clean and dry at the time of my evaluation but nursing reports that had just changed; I did not make them take it down again for me.) Psych Exam: Positive: Mood NL, Oriented x 3 Assessment /Plan Problems (1) History of arthroplasty of right knee Problem Text: Today is postoperative day two. It sounds as if she was initially supposed to go home yesterday but was kept because of tachycardia and some hypokalemia. (2) Postoperative anemia due to acute blood loss Status: Acute Response to Treatment: Worse Discussed With: Milling Planer Operator, Patient Problem Specific Plan: Repeat Labs Problem Text: Her H&H continues to drift down. If she drops below 8.0 I think we should transfuse her. Additionally she is on prophylactic Xarelto, but I think we should hold at least one dose to see if we can allow clots to form and begin to organize. If we don't I think she'll keep bleeding from her wound. We'll assess whether we need to hold more than one dose of Xarelto tomorrow. Note: I did speak with Dr. Jossue Mir later in the day. He was initially advocating for holding off on transfusion. I think she is likely to continue to drift down and we settled on a one unit transfusion. She will have one additional unit remaining and blood bank for the next two days if it's needed. (3) HTN (hypertension) Status: Chronic Discussed With: Nurse, Patient Problem Specific Plan: Monitor Clinically Problem Text: Her blood pressures actually low today. I'll hold the metoprolol that was added yesterday. I did end up giving her 500 mL bolus which helped bring her systolic pressure above 100. (4) Tachycardia Discussed With: Nurse, Patient Problem Specific Plan: Monitor Clinically Problem Text: She continues to have an intermittent sinus tachycardia, but it seems to be a physiologic tachycardia which is reactive to to hypotension. I stopped the beta yao as I think she may need to become compensatorily tachycardic at times to respond to her blood loss. We'll work on volume repletion with judicious use of IV fluids and transfusion if needed. The most important thing to help her tachycardia is to control her bleeding. There was concern yesterday that she might be having an acute coronary event this has not been borne out by the labs. This is another reason stopping the beta yao makes sense. (5) Hypokalemia Status: Resolved Problem Specific Plan: Repeat Labs Problem Text: Her low potassium levels have stabilized. We'll continue to monitor. Plan/VTE VTE Prophylaxis Ordered?: Yes (mechanical on the left leg only today) VTE Exclusion Pharmacological: Active Bleeding VS, I&O, 24H, Fishbone Vital Signs/I&O Vital Signs Date Time Temp Pulse Resp B/P (MAP) Pulse Ox O2 Delivery O2 Flow Rate FiO2 01/28/20 13:18 16 01/28/20 11:57 85 99/55 (70) 01/28/20 08:23 Room Air 01/28/20 06:00 98.7 96 01/25/20 08:40 2 I&O- Last 24 Hours up to 6 AM 01/28/20 06:00 Intake Total 300 ml Output Total 450 ml Balance -150 ml Laboratory Data 24H LABS Laboratory Tests 2 01/27/20 16:49: Bedside Glucose (Misc Panel) 152H 01/27/20 20:12: Total Creatine Kinase 44, Creatine Kinase MB < 1.0, Creatine Kinase MB Relative Index 2.27, Troponin I < 0.02 01/27/20 20:15: Bedside Glucose (Misc Panel) 134H 01/28/20 04:30: Total Creatine Kinase 58, Creatine Kinase MB < 1.0, Creatine Kinase MB Relative Index 1.72, Troponin I < 0.02, Nucleated Red Blood Cells % (auto) 0.0, Anion Gap 5L, Glomerular Filtration Rate 58.1, Calcium Level 8.9 01/28/20 05:45: Prothrombin Time 22.2H, Prothromb Time International Ratio 1.97, Activated Partial Thromboplast Time 54.1H 01/28/20 06:05: Bedside Glucose (Misc Panel) 196H 01/28/20 09:56: Total Creatine Kinase 108#, Creatine Kinase MB < 1.0, Creatine Kinase MB Relative Index 0.93, Troponin I < 0.02 01/28/20 11:38: Bedside Glucose (Misc Panel) 148H CBC/BMP Laboratory Tests 01/28/20 04:30 01/28/20 09:56 Slade Sykes MD Jan 28, 2020 3:09 pm
[2020-01-28] MEDS ORDERED: MORPHINE 4 MG/ML 1ML VIAL/SYRINGE (J2270) IV ONE (16:30)
[2020-01-28] MEDS ORDERED: NS 1,000 ML IV SCH (18:30)
[2020-01-29 00:35] VITALS: BP 121/65
[2020-01-29] MEDS: ACETAMINOPHEN 500 MG TAB PO SCH ×3 (05:34→21:02)
[2020-01-29 06:00] VITALS: BP 148/85
[2020-01-29] MEDS ORDERED: XARE10TA PO (06:52)
[2020-01-29 07:04] LABS: BASO # 0.1 10^3/uL (0.0-0.2); BASO % 0.4 % (0.0-1.0); EOS # 0.1 10^3/uL (0.0-0.5); EOS % 0.9 % (0.0-3.0); HEMATOCRIT 25.6 % (36.0-47.0); HEMOGLOBIN 8.7 g/dl (12.0-15.5); LYMPH # 1.5 10^3/uL (1.5-5.0); LYMPH % 10.8 % (24.0-44.0); MEAN CORPUSCULAR HEMOGLOBIN 30.9 pg (27.0-33.0); MEAN CORPUSCULAR VOLUME 90.8 fl (80.0-96.0); MONO # 1.6 10^3/uL (0.0-0.8); MONO % 11.7 % (0.0-5.0); NEUTROPHILS # 10.5 10^3/uL (1.5-8.5); NEUTROPHILS % 75.7 % (36.0-66.0); PLATELET COUNT, AUTOMATED 341 10^3/uL (150-450); RED BLOOD COUNT 2.82 10^6/uL (4.00-5.40); WHITE BLOOD COUNT 13.9 10^3/uL (4.0-10.0)
[2020-01-29 07:21] LABS: BLOOD UREA NITROGEN 26 MG/DL (7-18); CALCIUM LEVEL 8.1 MG/DL (8.5-10.1); CARBON DIOXIDE LEVEL 28 MEQ/L (21-32); CHLORIDE LEVEL 99 MEQ/L (98-107); CREATININE FOR GFR 0.86 MG/DL (0.55-1.30); GLOMERULAR FILTRATION RATE > 60.0 (>51); GLUCOSE, FASTING 164 MG/DL (70-100); SODIUM LEVEL 133 MEQ/L (136-145)
[2020-01-29] MEDS: HumaLOG INSULIN (NovoLOG) PER UNIT SC SCH ×3 (08:22→17:17)
[2020-01-29] MEDS: MOM 30ML SUSPENSION UDC PO SCH (08:22)
[2020-01-29] MEDS: MIRALAX *UNIT DOSE* 17GM PACKET PO SCH (08:22)
[2020-01-29] MEDS: clonazePAM 0.5 MG TAB PO SCH ×2 (08:22→20:03)
[2020-01-29] MEDS: lisinopriL 10 MG TAB PO SCH (08:24)
[2020-01-29] MEDS: ATORVASTATIN 20 MG TAB PO SCH (08:25)
[2020-01-29] MEDS: MORPHINE 15 MG SA TAB PO SCH ×2 (08:25→20:04)
[2020-01-29] MEDS: hydroCHLOROthiazide 12.5 MG CAPSULE PO SCH (08:25)
[2020-01-29 14:00] VITALS: BP 115/73
[2020-01-29 14:18] VITALS: BP 112/58
[2020-01-29 17:12] VITALS: BP 117/70
--- NOTE | 2020-01-29 17:18 | IPNPDOC ---
Subjective Date Seen The patient was seen on 01/29/20. Subjective Chief Complaint/HPI Izzy is feeling ok today. Much less drainage from her incision. Her RLE leg pain is also somewhat decreased, though it certainly is not gone. General: Reports: Normal Appetite Constitutional: Denies: Chills, Fever Pulmonary: Denies: Dyspnea, Cough Genitourinary: Denies: Dysuria Psych: Reports: Mood Normal Objective Physical Examination General Exam: Positive: Alert (resting in bed with head of the bed elevated when I entered the room), Cooperative, No Acute Distress Eye Exam: Positive: Conjunctiva & lids normal; Negative: Sclera icteric ENT Exam: Positive: Mucous membr. moist/pink Neck Exam: Positive: Supple; Negative: Lymphadenopathy Chest Exam: Positive: Clear to auscultation, Normal air movement Heart Exam: Positive: Rate Normal, Normal S1, Normal S2; Negative: Murmurs Telemetry: Positive: Sinus, Tachycardia (intermittent, basically when she is getting up) Abdomen Exam: Positive: Normal bowel sounds, Soft; Negative: Tenderness Extremity Exam: Positive: Other (The dressing shows mild bloody drainage, but much improved from yesterday) Psych Exam: Positive: Mood NL, Oriented x 3 Assessment /Plan Problems (1) History of arthroplasty of right knee Problem Text: Today is postoperative day three. My understanding is that her surgeon is carefully evaluating whether he needs to evacuate hematoma. We will defer this decision to him of course. (2) Postoperative anemia due to acute blood loss Status: Acute Response to Treatment: Worse Discussed With: Safety Investigator/Cause Analyst, Patient Problem Specific Plan: Repeat Labs Problem Text: Her hemoglobin count 8.7 after one unit transfusion. The Xarelto has been put on indefinite hold by orthopedics, who order it as prophylaxis. She still has some oozing from the operative site, but it's much better than yesterday. (3) HTN (hypertension) Status: Chronic Discussed With: Nurse, Patient Problem Specific Plan: Monitor Clinically Problem Text: Her blood pressure has been reasonably controlled on her current regimen. Continue current regimen, monitor. (4) Tachycardia Discussed With: Nurse, Patient Problem Specific Plan: Monitor Clinically Problem Text: She continues to have an intermittent sinus tachycardia especially when she is up and moving. It seems to be a physiologic tachycardia. (5) Hypokalemia Status: Resolved Problem Specific Plan: Repeat Labs Problem Text: Her low potassium levels have stabilized. We'll continue to anthony wilcox. Plan/VTE VTE Prophylaxis Ordered?: Yes (mechanical on the left leg only today) VTE Exclusion Pharmacological: Active Bleeding VS, I&O, 24H, Fishbone Vital Signs/I&O Vital Signs Date Time Temp Pulse Resp B/P (MAP) Pulse Ox O2 Delivery O2 Flow Rate FiO2 01/29/20 17:12 145 117/70 (86) 01/29/20 14:00 97.9 17 96 Room Air 01/25/20 08:40 2 I&O- Last 24 Hours up to 6 AM 01/29/20 06:00 Intake Total 2510 ml Balance 2510 ml Laboratory Data 24H LABS Laboratory Tests 2 01/28/20 20:41: Bedside Glucose (Misc Panel) 164H 01/29/20 06:40: Immature Granulocyte % (Auto) 0.5, Neutrophils (%) (Auto) 75.7H, Lymphocytes (%) (Auto) 10.8L, Monocytes (%) (Auto) 11.7H, Eosinophils (%) (Auto) 0.9, Basophils (%) (Auto) 0.4, Neutrophils # (Auto) 10.5H, Lymphocytes # (Auto) 1.5, Monocytes # (Auto) 1.6H, Eosinophils # (Auto) 0.1, Basophils # (Auto) 0.1, Nucleated Red Blood Cells % (auto) 0.0, Anion Gap 6L, Glomerular Filtration Rate > 60.0, Calcium Level 8.1L 01/29/20 11:52: Bedside Glucose (Misc Panel) 135H 01/29/20 16:53: Bedside Glucose (Misc Panel) 170H CBC/BMP Laboratory Tests 01/29/20 06:40 Slade Sykes MD Jan 29, 2020 5:18 pm
[2020-01-29] MEDS: traMADol 50 MG TAB PO PRN (17:21)
[2020-01-29 20:00] VITALS: BP 113/70
[2020-01-30] VITALS (8 sets, daily range): BP systolic 129–158; BP diastolic 62–90
[2020-01-30] MEDS: traMADol 50 MG TAB PO PRN ×2 (00:36→13:45)
[2020-01-30] MEDS: ACETAMINOPHEN 500 MG TAB PO SCH ×3 (05:13→22:06)
[2020-01-30 06:40] LABS: BASO % 0.4 % (0.0-1.0); EOS # 0.3 10^3/uL (0.0-0.5); EOS % 2.6 % (0.0-3.0); HEMOGLOBIN 7.6 g/dl (12.0-15.5); LYMPH # 1.5 10^3/uL (1.5-5.0); MEAN CORPUSCULAR HEMOGLOBIN 30.4 pg (27.0-33.0); MONO # 1.4 10^3/uL (0.0-0.8); MONO % 12.9 % (0.0-5.0); NEUTROPHILS # 7.6 10^3/uL (1.5-8.5); NEUTROPHILS % 69.5 % (36.0-66.0); PLATELET COUNT, AUTOMATED 308 10^3/uL (150-450); WHITE BLOOD COUNT 10.9 10^3/uL (4.0-10.0)
[2020-01-30 07:08] LABS: ALBUMIN 2.5 GM/DL (3.2-5.2); ALT/SGPT 26 U/L (12-78); BILIRUBIN,TOTAL 2.2 MG/DL (0.2-1.0); BLOOD UREA NITROGEN 22 MG/DL (7-18); CALCIUM LEVEL 8.4 MG/DL (8.5-10.1); CARBON DIOXIDE LEVEL 31 MEQ/L (21-32); CHLORIDE LEVEL 97 MEQ/L (98-107); CREATININE FOR GFR 0.75 MG/DL (0.55-1.30); GLOMERULAR FILTRATION RATE > 60.0 (>51); GLUCOSE, FASTING 132 MG/DL (70-100); POTASSIUM SERUM 3.6 MEQ/L (3.5-5.1); SODIUM LEVEL 133 MEQ/L (136-145); TOTAL PROTEIN 6.5 GM/DL (6.4-8.2)
[2020-01-30] MEDS: MIRALAX *UNIT DOSE* 17GM PACKET PO SCH (09:00)
[2020-01-30] MEDS: lisinopriL 10 MG TAB PO SCH (09:00)
[2020-01-30] MEDS: MOM 30ML SUSPENSION UDC PO SCH (09:00)
[2020-01-30] MEDS: MORPHINE 15 MG SA TAB PO SCH ×2 (09:03→20:29)
[2020-01-30] MEDS: HumaLOG INSULIN (NovoLOG) PER UNIT SC SCH ×3 (09:15→18:12)
[2020-01-30] MEDS: hydroCHLOROthiazide 12.5 MG CAPSULE PO SCH (09:31)
[2020-01-30] MEDS: ATORVASTATIN 20 MG TAB PO SCH (09:32)
[2020-01-30] MEDS: clonazePAM 0.5 MG TAB PO SCH ×2 (10:19→20:29)
--- NOTE | 2020-01-30 11:31 | IPNPDOC ---
Subjective Date Seen The patient was seen on 01/30/20. Subjective Chief Complaint/HPI Pt this morning is doing well. She has no concerns. General: Denies: Fatigue Constitutional: Denies: Chills, Fever Pulmonary: Denies: Dyspnea, Cough Cardiovascular: Denies: Chest Pain, Palpitations Gastrointestinal: Denies: Nausea, Vomiting, Diarrhea Neurological: Denies: Weakness Psych: Reports: Mood Normal Objective Physical Examination General Exam: Positive: Alert, Cooperative, No Acute Distress ENT Exam: Positive: Mucous membr. moist/pink Neck Exam: Positive: Supple; Negative: Lymphadenopathy Chest Exam: Positive: Clear to auscultation, Normal air movement Heart Exam: Positive: Rate Normal (the time of my examination), Normal S1, Normal S2; Negative: Murmurs Abdomen Exam: Positive: Normal bowel sounds, Soft; Negative: Tenderness Extremity Exam: Positive: Edema (trace) Psych Exam: Positive: Mood NL, Oriented x 3 Assessment /Plan Problems (1) History of arthroplasty of right knee Problem Text: 01/29 POD4. mgmt per Ortho. 01/28 Today is postoperative day three. My understanding is that her surgeon is carefully evaluating whether he needs to evacuate hematoma. We will defer this decision to him of course. (2) Postoperative anemia due to acute blood loss Status: Acute Response to Treatment: Worse Discussed With: Roll Capper, Patient Problem Specific Plan: Repeat Labs Problem Text: baseline hgb 12s 01/29 7.6-tx 1u 01/27 7.8, tx 1u 01/28 Her hemoglobin count 8.7 after one unit transfusion. The Xarelto has been put on indefinite hold by orthopedics, who order it as prophylaxis. She still has some oozing from the operative site, but it's much better than yesterday. (3) HTN (hypertension) Status: Chronic Discussed With: Nurse, Patient Problem Specific Plan: Monitor Clinically Problem Text: stable on HD lisin 10, HCTZ 12.5 (4) Tachycardia Discussed With: Nurse, Patient Problem Specific Plan: Monitor Clinically Problem Text: She continues to have an intermittent sinus tachycardia especially when she is up and moving. It seems to be a physiologic tachycardia. (5) Hypokalemia Status: Resolved Problem Specific Plan: Repeat Labs Problem Text: Her low potassium levels have stabilized. We'll continue to monitor. Plan/VTE VTE Prophylaxis Ordered?: Yes (mechanical on the left leg only today) VTE Exclusion Pharmacological: Active Bleeding VS, I&O, 24H, Fishbone Vital Signs/I&O Vital Signs Date Time Temp Pulse Resp B/P (MAP) Pulse Ox O2 Delivery O2 Flow Rate FiO2 01/30/20 11:04 99.2 93 16 136/62 97 Room Air 01/25/20 08:40 2 I&O- Last 24 Hours up to 6 AM 01/30/20 06:00 Intake Total 510 ml Output Total 600 ml Balance -90 ml Laboratory Data 24H LABS Laboratory Tests 2 01/29/20 11:52: Bedside Glucose (Misc Panel) 135H 01/29/20 16:53: Bedside Glucose (Misc Panel) 170H 01/29/20 20:35: Bedside Glucose (Misc Panel) 134H 01/30/20 06:09: Immature Granulocyte % (Auto) 0.6, Neutrophils (%) (Auto) 69.5H, Lymphocytes (%) (Auto) 14.0L, Monocytes (%) (Auto) 12.9H, Eosinophils (%) (Auto) 2.6, Basophils (%) (Auto) 0.4, Neutrophils # (Auto) 7.6, Lymphocytes # (Auto) 1.5, Monocytes # (Auto) 1.4H, Eosinophils # (Auto) 0.3, Basophils # (Auto) 0.0, Nucleated Red Blood Cells % (auto) 0.0, Anion Gap 5L, Glomerular Filtration Rate > 60.0, Calcium Level 8.4L, Total Bilirubin 2.2H, Aspartate Amino Transf (AST/SGOT) 31, Alanine Aminotransferase (ALT/SGPT) 26, Alkaline Phosphatase 131H, Total Protein 6.5, Albumin 2.5L, Albumin/Globulin Ratio 0.63L CBC/BMP Laboratory Tests 01/30/20 06:09 ANAMIKA LOERA PA-C Jan 30, 2020 11:31 Mundo Green M.D. Jan 30, 2020 18:47
[2020-01-30 21:01] LABS: HEMATOCRIT 27.2 % (36.0-47.0); MEAN CORPUSCULAR HEMOGLOBIN 30.2 pg (27.0-33.0); MEAN CORPUSCULAR HGB CONC 33.1 g/dl (32.0-36.5); MEAN CORPUSCULAR VOLUME 91.3 fl (80.0-96.0); PLATELET COUNT, AUTOMATED 336 10^3/uL (150-450); RED BLOOD COUNT 2.98 10^6/uL (4.00-5.40); WHITE BLOOD COUNT 11.3 10^3/uL (4.0-10.0)
[2020-01-30 21:34] LABS: BLOOD UREA NITROGEN 21 MG/DL (7-18); CALCIUM LEVEL 8.7 MG/DL (8.5-10.1); CARBON DIOXIDE LEVEL 31 MEQ/L (21-32); CHLORIDE LEVEL 97 MEQ/L (98-107); CK-MB VALUE MASS < 1.0 NG/ML (<3.6); CPK CREATINE PHOSPHOKINASE 81 U/L (26-192); CREATININE FOR GFR 0.83 MG/DL (0.55-1.30); GLOMERULAR FILTRATION RATE > 60.0 (>51); GLUCOSE, FASTING 154 MG/DL (70-100); MAGNESIUM LEVEL 2.4 MG/DL (1.8-2.4); MB/CK RELATIVE INDEX 1.23 (< OR =4); POTASSIUM SERUM 3.7 MEQ/L (3.5-5.1); SODIUM LEVEL 134 MEQ/L (136-145); TROPONIN I < 0.02 NG/ML (< 0.10)
--- NOTE | 2020-01-30 22:12 | IPNPDOC ---
Text Note Date of Service The patient was seen on 01/30/20. NOTE While instrumentation technologist I was called urgently to the floor to reassess Ms. Dinh. She is on telemetry and the monitor specialist noted afib with RVR. This is a new finding. Initially they though she was a hospitalist patient (because of the mistaken way the consult request was put in), and the resident on over nights put in initial orders for labs and a stat EKG. When I evaluated her she reports that she can feel a fluttering in her chest that is different than she has felt before, but doesn't hurt per se. She denies any known history of an arrhythmia. Her telemetry shows afib with RVR with a max rate in the 180s, but a typical rate in the 140-150s. Her BP is 158/82, RR 20 and O2 sat is 98% on RA. She denies any difficulty breathing or any unusual muscle cramps. The stat labs shows a potassium of 3.7, magnesium of 2.4, Hb is up to 9.0. The cardiac injury profile is normal as is the TSH. While personally attending the patient, I ordered a stat dose of 20mg IV dilti azem. This brought her HR down in to the 110s, but only for a few minutes. At 15 minutes her HR was in the 130s. BP 142/68. I repeated the IV diltiazem at 25mg. This brought her HR into the 90s. I started a diltiazem drip at 10mg/hr with instructions to stop the infusion if her HR was sustained at <70 and to call if her HR was sustained at >130. I will personally order dose changes (since a titration protocol is not allowed on PCU). A total of 80 minutes were spent at the bedside. No procedures were performed. (call center associate) VS,Fishbone, I+O VS, Fishbone, I+O Laboratory Tests 01/30/20 06:09 01/30/20 20:46 Vital Signs Date Time Temp Pulse Resp B/P (MAP) Pulse Ox O2 Delivery O2 Flow Rate FiO2 01/30/20 20:29 20 01/30/20 20:15 99.0 133 158/82 (107) 98 Room Air 01/25/20 08:40 2 I&O- Last 24 Hours up to 6 AM 01/30/20 05:59 Intake Total 800 ml Output Total 600 ml Balance 200 ml Slade Sykes MD Jan 30, 2020 22:12
[2020-01-30] MEDS ORDERED: diltiaZEM 125 MG in NS 100 ML IV SCH (23:00)
[2020-01-30] MEDS: diltiaZEM 125 MG in NS 100 ML IV SCH (23:43)
[2020-01-31] VITALS: BP 120/70
[2020-01-31] MEDS: traMADol 50 MG TAB PO PRN (02:32)
[2020-01-31 04:00] VITALS: BP 117/81
[2020-01-31 05:21] LABS: BASO # 0.1 10^3/uL (0.0-0.2); BASO % 0.6 % (0.0-1.0); EOS # 0.2 10^3/uL (0.0-0.5); HEMATOCRIT 27.2 % (36.0-47.0); HEMOGLOBIN 9.1 g/dl (12.0-15.5); LYMPH # 1.4 10^3/uL (1.5-5.0); LYMPH % 11.7 % (24.0-44.0); MEAN CORPUSCULAR HEMOGLOBIN 30.4 pg (27.0-33.0); MEAN CORPUSCULAR HGB CONC 33.5 g/dl (32.0-36.5); MONO # 1.5 10^3/uL (0.0-0.8); NEUTROPHILS # 8.4 10^3/uL (1.5-8.5); NEUTROPHILS % 72.3 % (36.0-66.0); PLATELET COUNT, AUTOMATED 372 10^3/uL (150-450); RED BLOOD COUNT 2.99 10^6/uL (4.00-5.40); WHITE BLOOD COUNT 11.6 10^3/uL (4.0-10.0)
[2020-01-31 05:41] LABS: ALBUMIN 2.6 GM/DL (3.2-5.2); ALT/SGPT 34 U/L (12-78); BILIRUBIN,TOTAL 2.6 MG/DL (0.2-1.0); BLOOD UREA NITROGEN 21 MG/DL (7-18); CALCIUM LEVEL 8.3 MG/DL (8.5-10.1); CARBON DIOXIDE LEVEL 30 MEQ/L (21-32); CHLORIDE LEVEL 99 MEQ/L (98-107); CREATININE FOR GFR 0.78 MG/DL (0.55-1.30); GLOMERULAR FILTRATION RATE > 60.0 (>51); GLUCOSE, FASTING 150 MG/DL (70-100); POTASSIUM SERUM 3.8 MEQ/L (3.5-5.1); SODIUM LEVEL 137 MEQ/L (136-145); TOTAL PROTEIN 5.9 GM/DL (6.4-8.2)
[2020-01-31] MEDS: ACETAMINOPHEN 500 MG TAB PO SCH ×3 (06:40→20:26)
[2020-01-31] MEDS ORDERED: ASPI81CH33 PO (07:59)
[2020-01-31 08:00] VITALS: BP 131/70
[2020-01-31] MEDS: clonazePAM 0.5 MG TAB PO SCH ×2 (08:15→20:25)
[2020-01-31] MEDS: MOM 30ML SUSPENSION UDC PO SCH (08:15)
[2020-01-31] MEDS: MORPHINE 15 MG SA TAB PO SCH ×2 (08:16→20:26)
[2020-01-31] MEDS: ATORVASTATIN 20 MG TAB PO SCH (08:16)
[2020-01-31] MEDS: hydroCHLOROthiazide 12.5 MG CAPSULE PO SCH (08:16)
[2020-01-31] MEDS: HumaLOG INSULIN (NovoLOG) PER UNIT SC SCH ×3 (08:17→18:29)
[2020-01-31] MEDS: MIRALAX *UNIT DOSE* 17GM PACKET PO SCH (08:17)
[2020-01-31] MEDS: lisinopriL 10 MG TAB PO SCH (08:18)
[2020-01-31 12:00] VITALS: BP 129/73
[2020-01-31] MEDS: diltiaZEM 125 MG in NS 100 ML IV SCH (13:22)
--- NOTE | 2020-01-31 15:17 | IPNPDOC ---
Subjective Date Seen The patient was seen on 01/31/20. Subjective Chief Complaint/HPI new onset asx AF at 01/29 while sleeping Constitutional: Denies: Chills, Fever ENT: Denies: Head Aches Pulmonary: Denies: Dyspnea, Cough Cardiovascular: Denies: Chest Pain, Palpitations Gastrointestinal: Denies: Nausea, Vomiting Objective Physical Examination General Exam: Positive: Alert, Cooperative, No Acute Distress ENT Exam: Positive: Mucous membr. moist/pink Neck Exam: Positive: Supple; Negative: Lymphadenopathy Chest Exam: Positive: Clear to auscultation, Normal air movement Heart Exam: Positive: Rate Normal (the time of my examination), Normal S1, Normal S2; Negative: Murmurs Abdomen Exam: Positive: Normal bowel sounds, Soft; Negative: Tenderness Extremity Exam: Positive: Edema (trace) Psych Exam: Positive: Mood NL, Oriented x 3 Assessment /Plan Problems (1) Atrial fibrillation with rapid ventricular response Status: Acute Problem Text: new onset asx 01/30/201999 when sleeping WITHOUT CPAP favor 2 mild decomp (+4L since admission, favor increased tbili, ALP 2 hepatic congestion c baseline Gilbert's), anemia (baseline hgb 12s, hypoxia 2 KAE, pain/tramadol use) 01/30 changed dilt gtt 10/H to met tar 25 q6H for better adrenergic blockade, fur 20 IV x 1, + apix, check TTE/EKG now, patient requests Dr. Chahal if Cardiology is needed 01/29 TSH 2.6 01/29 T-I 20:46 <0.02 (2) History of arthroplasty of right knee Problem Text: POD D6 R TKR Van (3) Postoperative anemia due to acute blood loss Status: Acute Response to Treatment: Worse Discussed With: Box Fabricator, Patient Problem Specific Plan: Repeat Labs Problem Text: baseline hgb 12s 01/30 9.1; therefore, restarted apix 5 BID for DVT px and AF, HO ALL stools, check willett 01/29 7.6-tx 1u 01/27 7.8, tx 1u 03/2019 colon moderate losis, tubular adenomae (4) HTN (hypertension) Status: Chronic Discussed With: Nurse, Patient Problem Specific Plan: Monitor Clinically Problem Text: 01/30 held HD lisin 10, HCTZ 12.5 (given 01/30) to allow higher BB dose (5) T2DM (type 2 diabetes mellitus) Status: Chronic Response to Treatment: Stable Problem Text: AC BG 140-150 02/2019 A1C 5.9 Plan/VTE VTE Prophylaxis Ordered?: Yes (mechanical on the left leg only today) VTE Exclusion Pharmacological: Active Bleeding VS, I&O, 24H, Fishbone Vital Signs/I&O Vital Signs Date Time Temp Pulse Resp B/P (MAP) Pulse Ox O2 Delivery O2 Flow Rate FiO2 01/31/20 13:22 101 129/73 01/31/20 12:00 98.4 18 96 Room Air 01/25/20 08:40 2 I&O- Last 24 Hours up to 6 AM 01/31/20 06:00 Intake Total 1170.0 ml Output Total 950 ml Balance 220.0 ml Laboratory Data 24H LABS Laboratory Tests 2 01/30/20 16:33: Bedside Glucose (Misc Panel) 131H 01/30/20 20:46: Nucleated Red Blood Cells % (auto) 0.0, Anion Gap 6L, Glomerular Filtration Rate > 60.0, Calcium Level 8.7, Magnesium Level 2.4, Total Creatine Kinase 81, Creatine Kinase MB < 1.0, Creatine Kinase MB Relative Index 1.23, Troponin I < 0.02, Thyroid Stimulating Hormone (TSH) 2.590 01/30/20 21:22: Bedside Glucose (Misc Panel) 131H 01/31/20 04:45: Nucleated Red Blood Cells % (auto) 0.0, Anion Gap 8, Glomerular Filtration Rate > 60.0, Calcium Level 8.3L, Immature Granulocyte % (Auto) 0.4, Neutrophils (%) (Auto) 72.3H, Lymphocytes (%) (Auto) 11.7L, Monocytes (%) (Auto) 13.0H, Eosinophils (%) (Auto) 2.0, Basophils (%) (Auto) 0.6, Neutrophils # (Auto) 8.4, Lymphocytes # (Auto) 1.4L, Monocytes # (Auto) 1.5H, Eosinophils # (Auto) 0.2, Basophils # (Auto) 0.1, Total Bilirubin 2.6H, Aspartate Amino Transf (AST/SGOT) 33, Alanine Aminotransferase (ALT/SGPT) 34, Alkaline Phosphatase 181H, Total Protein 5.9L, Albumin 2.6L, Albumin/Globulin Ratio 0.79L 01/31/20 11:32: Bedside Glucose (Misc Panel) 140H CBC/BMP Laboratory Tests 01/30/20 20:46 01/31/20 04:45 Mundo Green M.D. Jan 31, 2020 15:17
[2020-01-31 16:00] VITALS: BP 143/67
[2020-01-31 16:21] LABS: PERCENT SATURATION 17.8 % (13.2-45.0)
[2020-01-31] MEDS: METOPROLOL TART 25 MG TABLET PO SCH (17:07)
[2020-01-31] MEDS: FUROSEMIDE 20 MG/2 ML VIAL (J1940) IV SCH (17:07)
[2020-01-31 20:00] VITALS: BP 121/58
[2020-01-31] MEDS: APIXABAN 5 MG TAB (ELIQUIS) PO SCH (20:25)
--- NOTE | 2020-01-31 22:08 | ECHO ---
DATE OF PROCEDURE: 01/31/2020 REFERRING PHYSICIAN: Dr. Nhi Mir INDICATION: Abnormal ECG. Height 177 cm, weight 120 kg. DIMENSIONS: IVS: 1.2 LV: 4.5 LVPW: 1.2 LA: 3.4 Aorta: 3.6 IVC: 2.2 Mitral E wave velocity: 56 A wave: 47 E prime septal: 7.6 E prime lateral: 10.7 FINDINGS: The study is of acceptable technical quality considering patient's body habitus and difficulty positioning. The patient is in sinus rhythm. Left ventricle is normal size. There is hyperdynamic left ventricular contractility with estimated left ventricular ejection fraction (LVEF) 65-70%. Mild left ventricular hypertrophy (LVH) is noted. Right ventricle does not appear enlarged. Both atria appear normal. Aortic, mitral and tricuspid valves appear normal. Pulmonic valve was not well seen. No pericardial effusion is present. Inferior vena cava is mildly dilated. Aortic root, aortic arch and visualized segment of abdominal aorta all appear normal. Doppler interrogation reveals competent aortic valve, competent mitral valve, mild tricuspid insufficiency and no pulmonic insufficiency. Estimated pulmonary artery pressure is in 30s corresponding to mild pulmonary hypertension. Mitral inflow pattern and tissue Doppler imaging of mitral annulus revealed normal diastolic function. CONCLUSIONS: 1. Study is of acceptable technical quality, the patient is in sinus rhythm. 2. Normal LV size, mild LVH, preserved LV systolic function and preserved diastolic function. Estimated LVEF 65-70%. 3. No significant valvular disease. 4. Likely at least mildly elevated central venous pressure and at least mild pulmonary hypertension. COMMENT: Subacute bacterial endocarditis (SBE) prophylaxis is not recommended.
[2020-02-01] VITALS (7 sets, daily range): BP systolic 105–161; BP diastolic 52–81
[2020-02-01] MEDS: METOPROLOL TART 25 MG TABLET PO SCH ×4 (00:27→18:45)
[2020-02-01] MEDS: traMADol 50 MG TAB PO PRN ×3 (04:13→16:57)
[2020-02-01] MEDS: ACETAMINOPHEN 500 MG TAB PO SCH ×3 (05:31→21:03)
[2020-02-01 05:32] LABS: BASO # 0.1 10^3/uL (0.0-0.2); BASO % 0.5 % (0.0-1.0); EOS # 0.4 10^3/uL (0.0-0.5); EOS % 2.9 % (0.0-3.0); HEMATOCRIT 28.9 % (36.0-47.0); HEMOGLOBIN 9.6 g/dl (12.0-15.5); LYMPH # 2.1 10^3/uL (1.5-5.0); LYMPH % 16.9 % (24.0-44.0); MEAN CORPUSCULAR HEMOGLOBIN 30.6 pg (27.0-33.0); MEAN CORPUSCULAR HGB CONC 33.2 g/dl (32.0-36.5); MONO # 1.3 10^3/uL (0.0-0.8); MONO % 10.7 % (0.0-5.0); NEUTROPHILS # 8.3 10^3/uL (1.5-8.5); NEUTROPHILS % 68.5 % (36.0-66.0); PLATELET COUNT, AUTOMATED 464 10^3/uL (150-450); RED BLOOD COUNT 3.14 10^6/uL (4.00-5.40); WHITE BLOOD COUNT 12.1 10^3/uL (4.0-10.0)
[2020-02-01 05:41] LABS: ALBUMIN 2.8 GM/DL (3.2-5.2); BLOOD UREA NITROGEN 21 MG/DL (7-18); CARBON DIOXIDE LEVEL 33 MEQ/L (21-32); CHLORIDE LEVEL 95 MEQ/L (98-107); CREATININE FOR GFR 0.85 MG/DL (0.55-1.30); GLOMERULAR FILTRATION RATE > 60.0 (>51); GLUCOSE, FASTING 135 MG/DL (70-100); MAGNESIUM LEVEL 2.6 MG/DL (1.8-2.4); PHOSPHORUS LEVEL 3.4 MG/DL (2.5-4.9); POTASSIUM SERUM 3.3 MEQ/L (3.5-5.1); SODIUM LEVEL 134 MEQ/L (136-145)
[2020-02-01] MEDS: MIRALAX *UNIT DOSE* 17GM PACKET PO SCH (08:45)
[2020-02-01] MEDS: HumaLOG INSULIN (NovoLOG) PER UNIT SC SCH ×3 (08:46→16:52)
[2020-02-01] MEDS: clonazePAM 0.5 MG TAB PO SCH ×2 (08:46→21:03)
[2020-02-01] MEDS: MOM 30ML SUSPENSION UDC PO SCH (08:46)
[2020-02-01] MEDS: POTASSIUM CHLORIDE 10 MEQ SR TABLET PO SCH ×2 (08:47→21:03)
[2020-02-01] MEDS: APIXABAN 5 MG TAB (ELIQUIS) PO SCH ×2 (08:48→21:03)
[2020-02-01] MEDS: MORPHINE 15 MG SA TAB PO SCH ×2 (08:48→21:04)
[2020-02-01] MEDS: ATORVASTATIN 20 MG TAB PO SCH (08:48)
--- NOTE | 2020-02-01 09:52 | IPN ---
DATE: 02/01/2020 Izzy is seen in PCU. She has had a complicated hospitalization. Her atrial fibrillation is under better control. Her heart rate is down in the 70s. Pressure is under better control as well. She has some electrolyte disturbances that we are dealing with today. She has had some postop anemia as well. She has a little volume overload requiring diuresis yesterday. Overall, she feels better, less short of breath. She had an echocardiogram done. Left atrium was normal size, 34 mm. Ejection normal at 65-70%. Elevated right sided pressure noted. PHYSICAL EXAMINATION: Blood pressure 138/60, pulse 76, respiratory rate 18, 98% oxygen saturation on room air. General appearance: Alert and conversant, in no distress. Lungs clear. Heart regular rate and rhythm, rate around 70. Abdomen soft, nontender. No masses. Trace peripheral edema. LABORATORIES: White count 12.1, hemoglobin 9.6, platelets 464. Sodium 134, potassium 3.3, BUN 21, creatinine 0.8, glucose 135, albumin 2.8. IMPRESSION: 1. Hypokalemia. Supplemental potassium has been given. 2. Atrial fibrillation. Her rate is controlled. She had a single dose of furosemide yesterday. 3. Obstructive sleep apnea (KAE). She has evidence of right sided elevated pressures. 4. Postop anemia. Hemoglobin is stable. 5. Diabetes. Blood sugar is in acceptable range. I will replace her potassium, labs are ordered for tomorrow. Anticipate she should be able to be discharged tomorrow.
[2020-02-01] MEDS ORDERED: SLF 3 ML SYR IV PRN (10:45)
[2020-02-01] MEDS: SLF 3 ML SYR IV SCH ×2 (16:51→21:04)
[2020-02-01] MEDS: FUROSEMIDE 20 MG/2 ML VIAL (J1940) IV SCH (16:51)
[2020-02-02] VITALS (7 sets, daily range): BP systolic 115–137; BP diastolic 58–73
[2020-02-02] MEDS: METOPROLOL TART 25 MG TABLET PO SCH ×3 (00:08→13:02)
[2020-02-02] MEDS: ACETAMINOPHEN 500 MG TAB PO SCH ×3 (05:04→21:08)
[2020-02-02] MEDS: SLF 3 ML SYR IV SCH ×3 (05:04→21:00)
[2020-02-02 06:13] LABS: BASO # 0.1 10^3/uL (0.0-0.2); BASO % 0.6 % (0.0-1.0); EOS # 0.3 10^3/uL (0.0-0.5); EOS % 3.7 % (0.0-3.0); HEMATOCRIT 26.3 % (36.0-47.0); HEMOGLOBIN 8.5 g/dl (12.0-15.5); LYMPH # 1.9 10^3/uL (1.5-5.0); LYMPH % 20.7 % (24.0-44.0); MEAN CORPUSCULAR HGB CONC 32.3 g/dl (32.0-36.5); MEAN CORPUSCULAR VOLUME 92.9 fl (80.0-96.0); NEUTROPHILS # 5.8 10^3/uL (1.5-8.5); NEUTROPHILS % 63.4 % (36.0-66.0); PLATELET COUNT, AUTOMATED 413 10^3/uL (150-450); RED BLOOD COUNT 2.83 10^6/uL (4.00-5.40); WHITE BLOOD COUNT 9.1 10^3/uL (4.0-10.0)
[2020-02-02 06:39] LABS: ALBUMIN 2.7 GM/DL (3.2-5.2); BLOOD UREA NITROGEN 23 MG/DL (7-18); CALCIUM LEVEL 8.6 MG/DL (8.5-10.1); CARBON DIOXIDE LEVEL 32 MEQ/L (21-32); CHLORIDE LEVEL 97 MEQ/L (98-107); GLOMERULAR FILTRATION RATE > 60.0 (>51); GLUCOSE, FASTING 124 MG/DL (70-100); MAGNESIUM LEVEL 2.4 MG/DL (1.8-2.4); PHOSPHORUS LEVEL 3.3 MG/DL (2.5-4.9); POTASSIUM SERUM 3.8 MEQ/L (3.5-5.1); SODIUM LEVEL 133 MEQ/L (136-145)
[2020-02-02] MEDS: MIRALAX *UNIT DOSE* 17GM PACKET PO SCH (09:00)
[2020-02-02] MEDS: MOM 30ML SUSPENSION UDC PO SCH (09:00)
[2020-02-02] MEDS: clonazePAM 0.5 MG TAB PO SCH ×2 (09:06→20:14)
[2020-02-02] MEDS: MORPHINE 15 MG SA TAB PO SCH ×2 (09:07→20:14)
[2020-02-02] MEDS: ATORVASTATIN 20 MG TAB PO SCH (09:07)
[2020-02-02] MEDS: POTASSIUM CHLORIDE 10 MEQ SR TABLET PO SCH ×2 (09:07→20:15)
[2020-02-02] MEDS: APIXABAN 5 MG TAB (ELIQUIS) PO SCH ×2 (09:07→20:15)
[2020-02-02] MEDS: HumaLOG INSULIN (NovoLOG) PER UNIT SC SCH ×3 (09:08→18:29)
[2020-02-02] MEDS: FUROSEMIDE 20 MG/2 ML VIAL (J1940) IV SCH ×2 (15:30→16:13)
--- NOTE | 2020-02-02 16:22 | IPNPDOC ---
Subjective Date Seen The patient was seen on 02/02/20. Subjective Chief Complaint/HPI adequate pain control Constitutional: Denies: Chills, Fever Eyes: Denies: Pain, Vision change ENT: Denies: Head Aches Skin: Denies: Rash, Lesions Pulmonary: Denies: Dyspnea, Cough Cardiovascular: Denies: Chest Pain, Palpitations Objective Physical Examination General Exam: Positive: Alert, Cooperative, No Acute Distress ENT Exam: Positive: Mucous membr. moist/pink Neck Exam: Positive: Supple; Negative: Lymphadenopathy Chest Exam: Positive: Clear to auscultation, Normal air movement Heart Exam: Positive: Rate Normal (the time of my examination), Normal S1, Normal S2; Negative: Murmurs Abdomen Exam: Positive: Normal bowel sounds, Soft; Negative: Tenderness Extremity Exam: Positive: Edema (trace) Psych Exam: Positive: Mood NL, Oriented x 3 Assessment /Plan Problems (1) Atrial fibrillation with rapid ventricular response Status: Acute Problem Text: No recurrent symptoms [id number] 3; therefore, continue DOAC new onset asx 01/30/201999 when sleeping WITHOUT CPAP favor 2 mild decomp BNP 1997, T-I <0.04 (+4L since admission, favor increased tbili, ALP 2 hepatic congestion c baseline Gilbert's), anemia (baseline hgb 12s, hypoxia 2 KAE, pain/tramadol use) 02/01 changed to met succ 100 QHS 01/30 changed dilt gtt 10/H to met tar 25 q6H for better adrenergic blockade, fur 20 IV x 1, + apix, check TTE/EKG now c conversion to SR p 1 dose met tar 01/29 TSH 2.6 01/29 T-I 20:46 <0.02 01/29 TTE Slez[place]: 1. Study is of acceptable technical quality, the patient is in sinus rhythm. 2. Normal LV size, mild LVH, preserved LV systolic function and preserved diastolic function. Estimated LVEF 65-70%. 3. No significant valvular disease. 4. Likely at least mildly elevated central venous pressure and at least mild pulmonary hypertension. (2) History of arthroplasty of right knee Problem Text: POD D8 R TKR Van 02/01 PT safe to dc home (3) Postoperative anemia due to acute blood loss Status: Acute Response to Treatment: Worse Discussed With: Nuclear Waste Process Operator, Patient Problem Specific Plan: Repeat Labs Problem Text: baseline hgb 12s tc IV Fe 02/01 8.5, + Fe 65 QD (no HO collected despite 2 soft BMs today) 01/31 9.6 01/30 9.1; therefore, restarted apix 5 BID for DVT px and AF, HO ALL stools, check willett, CHr 30/2.8 01/29 7.6-tx 1u 01/27 7.8, tx 1u 03/2019 colon moderate losis, tubular adenomae (4) HTN (hypertension) Status: Chronic Discussed With: Nurse, Patient Problem Specific Plan: Monitor Clinically Problem Text: 02/01 stable on met tar 25 QID, K 3.8 on 40 BID 01/30 held HD lisin 10, HCTZ 12.5 (given 01/30) to allow higher BB dose (5) T2DM (type 2 diabetes mellitus) Status: Chronic Response to Treatment: Stable Problem Text: AC BG 140-150 02/2019 A1C 5.9 Plan/VTE VTE Prophylaxis Ordered?: Yes (mechanical on the left leg only today) VTE Exclusion Pharmacological: Active Bleeding VS, I&O, 24H, Fishbone Vital Signs/I&O Vital Signs Date Time Temp Pulse Resp B/P (MAP) Pulse Ox O2 Delivery O2 Flow Rate FiO2 02/02/20 15:48 97.0 74 18 117/59 (78) 100 Room Air l I&O- Last 24 Hours up to 6 AM 02/02/20 06:00 Intake Total 1382 ml Output Total 2050 ml Balance -668 ml Laboratory Data 24H LABS Laboratory Tests 2 02/01/20 16:50: Bedside Glucose (Misc Panel) 116H 02/01/20 19:48: Bedside Glucose (Misc Panel) 160H 02/02/20 05:38: Immature Granulocyte % (Auto) 0.6, Neutrophils (%) (Auto) 63.4, Lymphocytes (%) (Auto) 20.7L, Monocytes (%) (Auto) 11.0H, Eosinophils (%) (Auto) 3.7H, Basophils (%) (Auto) 0.6, Neutrophils # (Auto) 5.8, Lymphocytes # (Auto) 1.9, Monocytes # (Auto) 1.0H, Eosinophils # (Auto) 0.3, Basophils # (Auto) 0.1, Nucleated Red Blood Cells % (auto) 0.0, Anion Gap 4L, Glomerular Filtration Rate > 60.0, Calcium Level 8.6, Phosphorus Level 3.3, Magnesium Level 2.4, Albumin 2.7L 02/02/20 13:01: Bedside Glucose (Misc Panel) 75 CBC/BMP Laboratory Tests 02/02/20 05:38 Mundo Green M.D. Feb 02, 2020 16:22
--- NOTE | 2020-02-02 17:51 | ECGEPIP ---
[facility] Test Date: 2020-01-30 Pat Name: SHAWNA STONE Department: Room: [place] [address] Gender: Female Bilingual Teacher Assistant: : 1960 Requested By: PAULA GIRALDO Order Number: [id number] Reading MD: Garrick Thomas Measurements Intervals [place] Rate: 140 P: ND: 0 QRS: 4 QRSD: 88 T: 66 QT: 306 QTc: 468 Interpretive Statements ATRIAL FIBRILLATION WITH RAPID VENTRICULAR RESPONSE NONSPECIFIC ST & T-WAVE ABNORMALITY ABNORMAL RHYTHM ECG Compared to prior tracings(5) in the system, Atrial Fib is new Electronically Signed on 02-02-2020 17:51:19 EDT by Garrick Thomas
--- NOTE | 2020-02-02 18:20 | ECGEPIP ---
[facility] Test Date: 2020-01-31 Pat Name: SHAWNA STONE Department: Room: [place] [address] Gender: Female Donor Processor: SAMANTHA : 1960 Requested By: Mundo QUEEN Order Number: [id number] Reading MD: Garrick Thomas Measurements Intervals [place] Rate: 106 P: DC: 0 QRS: -1 QRSD: 85 T: 47 QT: 348 QTc: 462 Interpretive Statements ATRIAL FIBRILLATION WITH RAPID VENTRICULAR RESPONSE LOW QRS VOLTAGE IN PRECORDIAL LEADS NONSPECIFIC ST & T-WAVE ABNORMALITY ABNORMAL RHYTHM ECG Last tracing on 01/30/20, 21:12. HEART THEN WAS 140 BPM Electronically Signed on 02-02-2020 18:20:10 EDT by Garrick Thomas
[2020-02-02] MEDS: METOPROLOL SUCC (TopROL XL) 100MG *XL* TAB PO SCH (20:15)
[2020-02-02] MEDS: traMADol 50 MG TAB PO PRN (21:08)
[2020-02-03] VITALS: BP 110/53
[2020-02-03] MEDS: traMADol 50 MG TAB PO PRN (03:24)
[2020-02-03 04:00] VITALS: BP 115/54
[2020-02-03 05:45] LABS: BASO % 0.5 % (0.0-1.0); EOS # 0.3 10^3/uL (0.0-0.5); EOS % 3.2 % (0.0-3.0); HEMATOCRIT 25.8 % (36.0-47.0); HEMOGLOBIN 8.4 g/dl (12.0-15.5); LYMPH # 2.1 10^3/uL (1.5-5.0); LYMPH % 25.3 % (24.0-44.0); MEAN CORPUSCULAR HEMOGLOBIN 30.9 pg (27.0-33.0); MEAN CORPUSCULAR HGB CONC 32.6 g/dl (32.0-36.5); MEAN CORPUSCULAR VOLUME 94.9 fl (80.0-96.0); NEUTROPHILS # 4.9 10^3/uL (1.5-8.5); NEUTROPHILS % 58.4 % (36.0-66.0); PLATELET COUNT, AUTOMATED 426 10^3/uL (150-450); RED BLOOD COUNT 2.72 10^6/uL (4.00-5.40); WHITE BLOOD COUNT 8.4 10^3/uL (4.0-10.0)
[2020-02-03 05:55] LABS: ALBUMIN 2.6 GM/DL (3.2-5.2); BLOOD UREA NITROGEN 25 MG/DL (7-18); CALCIUM LEVEL 8.5 MG/DL (8.5-10.1); CARBON DIOXIDE LEVEL 31 MEQ/L (21-32); CHLORIDE LEVEL 103 MEQ/L (98-107); CREATININE FOR GFR 0.78 MG/DL (0.55-1.30); GLOMERULAR FILTRATION RATE > 60.0 (>51); GLUCOSE, FASTING 119 MG/DL (70-100); MAGNESIUM LEVEL 2.4 MG/DL (1.8-2.4); PHOSPHORUS LEVEL 3.5 MG/DL (2.5-4.9); POTASSIUM SERUM 4.6 MEQ/L (3.5-5.1); SODIUM LEVEL 137 MEQ/L (136-145)
[2020-02-03] MEDS: ACETAMINOPHEN 500 MG TAB PO SCH (05:55)
[2020-02-03] MEDS: SLF 3 ML SYR IV SCH (05:56)
[2020-02-03] MEDS: POTASSIUM CHLORIDE 10 MEQ SR TABLET PO SCH (08:00)
[2020-02-03] MEDS: MORPHINE 15 MG SA TAB PO SCH (08:01)
[2020-02-03] MEDS: APIXABAN 5 MG TAB (ELIQUIS) PO SCH (08:01)
[2020-02-03] MEDS: ATORVASTATIN 20 MG TAB PO SCH (08:01)
[2020-02-03] MEDS: clonazePAM 0.5 MG TAB PO SCH (08:01)
[2020-02-03] MEDS: HumaLOG INSULIN (NovoLOG) PER UNIT SC SCH (08:02)
[2020-02-03 08:03] VITALS: BP 116/58
[2020-02-03] MEDS: METOPROLOL SUCC (TopROL XL) 100MG *XL* TAB PO SCH (08:03)
[2020-02-03] MEDS: MOM 30ML SUSPENSION UDC PO SCH (08:06)
[2020-02-03] MEDS: MIRALAX *UNIT DOSE* 17GM PACKET PO SCH (08:06)
[2020-02-03 08:20] VITALS: BP 116/58
[2020-02-03] MEDS ORDERED: FERROUS SULFATE 325MG TAB PO SCH (09:00)
--- NOTE | 2020-02-03 10:19 | IPNPDOC ---
Subjective Date Seen The patient was seen on 02/03/20. Subjective Chief Complaint/HPI no palpitations nor ARCHIBALD Constitutional: Denies: Chills, Fever ENT: Denies: Head Aches Pulmonary: Denies: Dyspnea, Cough Cardiovascular: Denies: Chest Pain, Palpitations Gastrointestinal: Denies: Nausea, Vomiting Genitourinary: Denies: Dysuria Objective Physical Examination General Exam: Positive: Alert, Cooperative, No Acute Distress ENT Exam: Positive: Mucous membr. moist/pink Neck Exam: Positive: Supple; Negative: Lymphadenopathy Chest Exam: Positive: Clear to auscultation, Normal air movement Heart Exam: Positive: Rate Normal (the time of my examination), Normal S1, N ormal S2; Negative: Murmurs Abdomen Exam: Positive: Normal bowel sounds, Soft; Negative: Tenderness Extremity Exam: Positive: Edema (trace) Psych Exam: Positive: Mood NL, Oriented x 3 Assessment /Plan Problems (1) Atrial fibrillation with rapid ventricular response Status: Acute Problem Text: No recurrent symptoms [id number] 3; therefore, continue DOAC new onset asx 01/30/201999 when sleeping WITHOUT CPAP favor 2 mild decomp BNP 1997, T-I <0.04 (+4L since admission, favor increased tbili, ALP 2 hepatic congestion c baseline Gilbert's), anemia (baseline hgb 12s, hypoxia 2 KAE, pain/tramadol use) 02/01 changed to met succ 100 QHS 01/30 changed dilt gtt 10/H to met tar 25 q6H for better adrenergic blockade, fur 20 IV x 1, + apix, check TTE/EKG now c conversion to SR p 1 dose met tar 01/29 TSH 2.6 01/29 T-I 20:46 <0.02 01/29 TTE Slezka: 1. Study is of acceptable technical quality, the patient is in sinus rhythm. 2. Normal LV size, mild LVH, preserved LV systolic function and preserved diastolic function. Estimated LVEF 65-70%. 3. No significant valvular disease. 4. Likely at least mildly elevated central venous pressure and at least mild pulmonary hypertension. (2) History of arthroplasty of right knee Problem Text: POD D9 R TKR Van 02/01 PT safe to dc home (3) Postoperative anemia due to acute blood loss Status: Acute Response to Treatment: Worse Discussed With: Turning And Beading Machine Operator, Patient Problem Specific Plan: Repeat Labs Problem Text: baseline hgb 12s tc IV Fe 02/02 8.4, 95 02/01 8.5, + Fe 65 QD (no HO collected despite 2 soft BMs today) 01/31 9.6 01/30 9.1; therefore, restarted apix 5 BID for DVT px and AF, HO ALL stools, check willett, CHr 30/2.8 01/29 7.6-tx 1u 01/27 7.8, tx 1u 01/25 B12 340 03/2019 colon moderate losis, tubular adenomae (4) HTN (hypertension) Status: Chronic Discussed With: Nurse, Patient Problem Specific Plan: Monitor Clinically Problem Text: dc on met succ 100 qAM c K 20 QD (02/02 K 4.6 on 40 BID) 02/01 stable on met tar 25 QID, K 3.8 on 40 BID 01/30 held HD lisin 10, HCTZ 12.5 (given 01/30) to allow higher BB dose (5) T2DM (type 2 diabetes mellitus) Status: Chronic Response to Treatment: Stable Problem Text: AC BG 140-150 02/2019 A1C 5.9 Plan/VTE VTE Prophylaxis Ordered?: Yes (mechanical on the left leg only today) VTE Exclusion Pharmacological: Active Bleeding VS, I&O, 24H, Fishbone Vital Signs/I&O Vital Signs Date Time Temp Pulse Resp B/P (MAP) Pulse Ox O2 Delivery O2 Flow Rate FiO2 02/03/20 08:20 98.6 72 19 116/58 (77) 100 Room Air I&O- Last 24 Hours up to 6 AM 02/03/20 06:00 Intake Total 540 ml Output Total 100 ml Balance 440 ml Laboratory Data 24H LABS Laboratory Tests 2 02/02/20 13:01: Bedside Glucose (Misc Panel) 75 02/02/20 17:35: Bedside Glucose (Misc Panel) 108H 02/02/20 20:18: Bedside Glucose (Misc Panel) 223H 02/03/20 05:04: Immature Granulocyte % (Auto) 0.6, Neutrophils (%) (Auto) 58.4, Lymphocytes (%) (Auto) 25.3, Monocytes (%) (Auto) 12.0H, Eosinophils (%) (Auto) 3.2H, Basophils (%) (Auto) 0.5, Neutrophils # (Auto) 4.9, Lymphocytes # (Auto) 2.1, Monocytes # (Auto) 1.0H, Eosinophils # (Auto) 0.3, Basophils # (Auto) 0.0, Nucleated Red Blood Cells % (auto) 0.0, Anion Gap 3L, Glomerular Filtration Rate > 60.0, Calcium Level 8.5, Phosphorus Level 3.5, Magnesium Level 2.4, Albumin 2.6L CBC/BMP Laboratory Tests 02/03/20 05:04 Mundo Green M.D. Feb 03, 2020 10:19
--- NOTE | 2020-02-06 13:16 | DSES ---
DATE OF ADMISSION: 01/25/2020 DATE OF DISCHARGE: 02/03/2020 ADMITTING DIAGNOSIS: Osteoarthritis right knee. OTHER DIAGNOSES: Hypertension, sleep apnea, obesity, insomnia, Gilbert's disease, stress incontinence, diabetes, elevated lipids, anxiety. During her hospital stay she also developed atrial fibrillation with rapid ventricular response and postoperative anemia due to acute blood loss. DISCHARGE DIAGNOSIS: Osteoarthritis right knee status post right total knee arthroplasty. OPERATION PERFORMED: Right total knee arthroplasty. HISTORY: This is a 59-year-old female patient with progressively worsening right knee pain and stiffness. She failed to improve with conservative management. She was admitted for elective knee replacement on right side. HOSPITAL COURSE: The patient was admitted on day of surgery underwent a right total knee arthroplasty which was uneventful. During her postoperative course she did develop bleeding and discharge from her wound and also developed postoperative anemia secondary to blood loss. She was treated with dressing changes and with transfusion and then we also held her blood thinner at that juncture so her Xarelto was held. Her hematocrit improved. Her bleeding improved until the point of discharge she was improving and that she developed atrial fibrillation with rapid ventricular response. She was seen by cardiology and her medications were adjusted and ultimately on day of discharge her symptoms have improved and it was felt she could be safely sent home at that juncture. On day of discharge her pain was controlled, her bleeding had resolved, her atrial fibrillation rate was controlled. She was weightbearing as tolerated on her right lower extremity. She will use thromboembolic deterrent stockings (TEDS) for 30 days postoperative for deep venous thrombosis (DVT) prophylaxis. She will also use Eliquis 5 mg per the provider network mgr recommendation for DVT prophylaxis. Also for the atrial fibrillation she will use Eliquis. She was given instructions to include but not limited to wound monitoring activity limitations. Followup in our office in 10-14 days for surgical followup. She was given instructions to include but not limited to wound monitoring activity limitations. She will resume her preoperative medications and diet. Please refer the medical record further details. cc: Nhi Mir
== END 2020-02-03 12:19 | disposition home or self-care (01) | DRG 302 ==
LOC: M OR 06:42 → M MS5PR 13:30 → M MSPAV 01-27 15:24 → M PCU 01-30 21:32
PROVIDERS: ADMIT Orthopaedic Surgery; ATTEND Orthopaedic Surgery
PROC: 0SRC0J9 Replacement of Right Knee Joint with Synthetic Substitute, Cemented, Open Approach (ICD-10-PCS; principal; 2020-01-25 08:30)
PROC: 30233N1 Transfusion of Nonautologous Red Blood Cells into Peripheral Vein, Percutaneous Approach (ICD-10-PCS; 2020-01-28)
DX: M17.11 Unilateral primary osteoarthritis, right knee (principal); I10 Essential (primary) hypertension; D62 Acute posthemorrhagic anemia; I48.91 Unspecified atrial fibrillation; E11.9 Type 2 diabetes mellitus without complications; D72.829 Elevated white blood cell count, unspecified; E66.9 Obesity, unspecified; Z68.38 Body mass index [BMI] 38.0-38.9, adult; R00.0 Tachycardia, unspecified; E87.6 Hypokalemia; G47.00 Insomnia, unspecified; E80.4 Gilbert syndrome; G47.33 Obstructive sleep apnea (adult) (pediatric); N39.3 Stress incontinence (female) (male); F41.9 Anxiety disorder, unspecified; Z79.899 Other long term (current) drug therapy; Z88.0 Allergy status to penicillin; Z96.642 Presence of left artificial hip joint; E78.5 Hyperlipidemia, unspecified; F34.1 Dysthymic disorder

== ENCOUNTER → 2020-02-06 | Outpatient (REF) | payer OTHER ==
[~2020-02-06] MED LIST changes: +ASPI81CH33 PO; +MORP15TASA PO; +MS C15TA8 PO; +TRAM50TA2 PO; -fentaNYL 100 MCG/2 ML INJECTION (J3010) IV SCH
[2020-02-06 13:58] LABS: BASO # 0.1 10^3/uL (0.0-0.2); BASO % 0.6 % (0.0-1.0); EOS # 0.2 10^3/uL (0.0-0.5); HEMATOCRIT 31.4 % (36.0-47.0); HEMOGLOBIN 9.9 g/dl (12.0-15.5); LYMPH # 1.7 10^3/uL (1.5-5.0); MEAN CORPUSCULAR HEMOGLOBIN 30.4 pg (27.0-33.0); MEAN CORPUSCULAR HGB CONC 31.5 g/dl (32.0-36.5); MEAN CORPUSCULAR VOLUME 96.3 fl (80.0-96.0); MONO % 9.8 % (0.0-5.0); NEUTROPHILS # 7.4 10^3/uL (1.5-8.5); NEUTROPHILS % 71.1 % (36.0-66.0); PLATELET COUNT, AUTOMATED 567 10^3/uL (150-450); RED BLOOD COUNT 3.26 10^6/uL (4.00-5.40); WHITE BLOOD COUNT 10.4 10^3/uL (4.0-10.0)
[2020-02-06 14:21] LABS: ALBUMIN 3.4 GM/DL (3.2-5.2); ALT/SGPT 25 U/L (12-78); BILIRUBIN,TOTAL 2.3 MG/DL (0.2-1.0); BLOOD UREA NITROGEN 20 MG/DL (7-18); CALCIUM LEVEL 8.9 MG/DL (8.5-10.1); CARBON DIOXIDE LEVEL 27 MEQ/L (21-32); CHLORIDE LEVEL 104 MEQ/L (98-107); CREATININE FOR GFR 0.86 MG/DL (0.55-1.30); GLOMERULAR FILTRATION RATE > 60.0 (>51); GLUCOSE, FASTING 141 MG/DL (70-100); MAGNESIUM LEVEL 2.1 MG/DL (1.8-2.4); NT-PRO BNP 204 PG/ML (<125); SODIUM LEVEL 139 MEQ/L (136-145); TOTAL PROTEIN 6.9 GM/DL (6.4-8.2); VITAMIN B12 LEVEL 685 PG/ML (247-911)
[2020-02-07 08:50] LABS: ALBUMIN % 52.8 % (55.8-66.1); ALPHA-1-GLOBULIN % 7.2 % (2.9-4.9); ALPHA-2-GLOBULINS % 11.2 % (7.1-11.8)
[2020-02-07 08:51] LABS: ALBUMIN 3.64 GM/DL (3.29-5.55); ALPHA-2-GLOBULINS 0.77 GM/DL (0.42-0.99); BETA-1-GLOBULINS % 7.3 % (4.7-7.2); BETA-2-GLOBULINS 0.53 GM/DL (0.19-0.55); BETA-2-GLOBULINS % 7.7 % (3.2-6.5); GAMMA GLOBULIN % 13.8 % (11.1-18.8); GAMMA GLOBULINS 0.95 GM/DL (0.65-1.58)
== END ==
LOC: M SFHCPLAZ 09:25
PROVIDERS: ATTEND Family Medicine
DX: D50.9 Iron deficiency anemia, unspecified (principal); I10 Essential (primary) hypertension

== ENCOUNTER → 2020-03-07 | Day surgery (SDC) | payer MEDICARE, MEDICAID ==
[~2020-03-07] VITALS: Ht 175.3 cm; Wt 121.6 kg
[~2020-03-07] MED LIST changes: +ACET300T2 PO; +ACETAMINOPHEN *IV* 1,000 MG IV ONE; +ACETAMINOPHEN 1000MG 100ML IV BTL (OFIRMEV) (J0131 PER 10MG) As Ordered ONE; +APAP500T10 PO; +FERR1TAB8 PO; +LIDOCAINE 2% 100MG/5ML SDV (FOR ANES.) As Ordered ONE; +LR 1,000 ML IV SCH; +METO1TAB33 PO; +MIDAZOLAM INJ 2MG/2ML VIAL (J2250 PER 1MG) As Ordered ONE; +MORPHINE 4 MG/ML 1ML VIAL/SYRINGE (J2270) IV PRN; +ONDANSETRON 4MG/2ML VIAL (J2405 PER 1MG) As Ordered ONE; +ONDANSETRON 4MG/2ML VIAL (J2405 PER 1MG) IV PRN; +PERCOCET 5MG/325MG TAB PO PRN; +SENN1TAB96 PO; +VITA50005 PO; +dexameTHASONE 4 MG/ML 1ML VIAL (J1100 PER 1MG) As Ordered ONE; +fentaNYL 100 MCG/2 ML INJECTION (J3010) As Ordered ONE; +fentaNYL 100 MCG/2 ML INJECTION (J3010) IV PRN; +oxyCODONE 5MG TAB As Ordered ONE; +propofoL 200 MG/20 ML VIAL As Ordered ONE
[2020-03-07] MEDS: oxyCODONE 5MG TAB PO PRN ×2 (09:28→10:00)
[2020-03-07 11:05] VITALS: BP 142/74
--- NOTE | 2020-03-07 14:41 | RO ---
DATE OF PROCEDURE: 03/07/2020 PREOPERATIVE DIAGNOSES: Osteofibrosis, right total knee replacement. POSTOPERATIVE DIAGNOSES: Osteofibrosis, right total knee replacement. PROCEDURE: Manipulation under anesthesia, right total knee arthroplasty. SURGEON: Nhi Mir MD PRISON OFFICER: None. ANESTHESIA: General endotracheal tube anesthetic. COMPLICATIONS: None. DESCRIPTION OF PROCEDURE: After successful general endotracheal tube anesthetic was established, knee motion was about 5-7 degrees shy from full extension. She only had approximately at most 60 degrees of motion and flexion of the right knee. Thus, a gentle manipulation was then performed. There was some palpable and audible lysis of adhesions detectable as I gently manipulated her knee and then held it against resistance several times and eventually to gravity, her knee was beyond 95 degrees and just about full extension was felt to have been obtained. I could not obtain any further flexion than that. However, with force, she would go to about approximately 115 degrees, but it would spring back to about 95 to gravity. At this point, I did not think I could improve on this any further. The procedure was concluded. She was then awakened from general endotracheal tube anesthesia after having tolerated the procedure well and transferred to the recovery room in stable condition. There were no intraoperative complications.
== END | disposition home or self-care (01) ==
LOC: M SDC 06:32
PROVIDERS: ATTEND Orthopaedic Surgery
DX: M24.661 Ankylosis, right knee (principal); Z96.651 Presence of right artificial knee joint; I48.91 Unspecified atrial fibrillation; I10 Essential (primary) hypertension; E11.9 Type 2 diabetes mellitus without complications; E78.49 Other hyperlipidemia; K21.9 Gastro-esophageal reflux disease without esophagitis; R21 Rash and other nonspecific skin eruption; G47.30 Sleep apnea, unspecified; F43.10 Post-traumatic stress disorder, unspecified; Z79.84 Long term (current) use of oral hypoglycemic drugs; Z79.899 Other long term (current) drug therapy
CPT/HCPCS: 27570; J0131; J1100; J2250; J2405; J3010

== ENCOUNTER → 2020-04-19 | Outpatient (REF) | payer OTHER ==
[~2020-04-19] MED LIST changes: -ACETAMINOPHEN *IV* 1,000 MG IV ONE; -ACETAMINOPHEN 1000MG 100ML IV BTL (OFIRMEV) (J0131 PER 10MG) As Ordered ONE; -LIDOCAINE 2% 100MG/5ML SDV (FOR ANES.) As Ordered ONE; -LR 1,000 ML IV SCH; -MIDAZOLAM INJ 2MG/2ML VIAL (J2250 PER 1MG) As Ordered ONE; -MORPHINE 4 MG/ML 1ML VIAL/SYRINGE (J2270) IV PRN; -ONDANSETRON 4MG/2ML VIAL (J2405 PER 1MG) As Ordered ONE; -ONDANSETRON 4MG/2ML VIAL (J2405 PER 1MG) IV PRN; -PERCOCET 5MG/325MG TAB PO PRN; -dexameTHASONE 4 MG/ML 1ML VIAL (J1100 PER 1MG) As Ordered ONE; -fentaNYL 100 MCG/2 ML INJECTION (J3010) As Ordered ONE; -fentaNYL 100 MCG/2 ML INJECTION (J3010) IV PRN; -oxyCODONE 5MG TAB As Ordered ONE; -propofoL 200 MG/20 ML VIAL As Ordered ONE
[2020-04-19 15:42] LABS: BASO # 0.1 10^3/uL (0.0-0.2); EOS # 0.2 10^3/uL (0.0-0.5); EOS % 3.1 % (0.0-3.0); HEMATOCRIT 40.3 % (36.0-47.0); HEMOGLOBIN 13.5 g/dl (12.0-15.5); LYMPH # 1.7 10^3/uL (1.5-5.0); LYMPH % 25.6 % (24.0-44.0); MEAN CORPUSCULAR HEMOGLOBIN 30.3 pg (27.0-33.0); MEAN CORPUSCULAR HGB CONC 33.5 g/dl (32.0-36.5); MEAN CORPUSCULAR VOLUME 90.6 fl (80.0-96.0); MONO # 0.8 10^3/uL (0.0-0.8); MONO % 11.5 % (0.0-5.0); NEUTROPHILS % 58.7 % (36.0-66.0); PLATELET COUNT, AUTOMATED 353 10^3/uL (150-450); RED BLOOD COUNT 4.45 10^6/uL (4.00-5.40); WHITE BLOOD COUNT 6.8 10^3/uL (4.0-10.0)
[2020-04-19 15:50] LABS: FERRITIN 61 NG/ML (8-252); IRON (FE) 70 UG/DL (50-170)
[2020-04-19 17:33] LABS: HEMOGLOBIN A1c 5.5 %
== END ==
LOC: M PLALAB 13:11
PROVIDERS: ATTEND Physician Assistant Medical
DX: D50.9 Iron deficiency anemia, unspecified (principal); E11.9 Type 2 diabetes mellitus without complications

== ENCOUNTER → 2020-04-24 | Outpatient (REF) | payer MEDICARE, MEDICAID ==
[2020-04-24 14:19] LABS: ALBUMIN 3.9 GM/DL (3.2-5.2); ALT/SGPT 22 U/L (12-78); BILIRUBIN,TOTAL 1.2 MG/DL (0.2-1.0); BLOOD UREA NITROGEN 23 MG/DL (7-18); CALCIUM LEVEL 9.3 MG/DL (8.5-10.1); CARBON DIOXIDE LEVEL 29 MEQ/L (21-32); CHLORIDE LEVEL 107 MEQ/L (98-107); CREATININE FOR GFR 0.85 MG/DL (0.55-1.30); GLOMERULAR FILTRATION RATE > 60.0 (>51); GLUCOSE, FASTING 131 MG/DL (70-100); NT-PRO BNP 199 PG/ML (<125); POTASSIUM SERUM 4.1 MEQ/L (3.5-5.1); SODIUM LEVEL 141 MEQ/L (136-145); TOTAL PROTEIN 7.3 GM/DL (6.4-8.2)
== END ==
LOC: M SFHCPLAZ 11:02
PROVIDERS: ATTEND Physician Assistant Medical
DX: I50.32 Chronic diastolic (congestive) heart failure (principal); E11.9 Type 2 diabetes mellitus without complications

== ENCOUNTER → 2020-06-04 | Outpatient (CLI) | payer MEDICARE ==
--- NOTE | 2020-06-04 16:00 | REPMRS ---
Patient History The patient states she had a clinical breast exam in May 2020. Family history of breast cancer at age 50 or over in paternal grandmother, pancreatic cancer at age 50 or over in maternal grandfather. No Hormone Replacement Therapy Digital Woman Screen Mammo: June 04, 2020 - Exam #: [id number] Bilateral CC and MLO view(s) were taken. Technologist: Lana Flood, Technologist Prior study comparison: January 18, 2019, bilateral digital woman screen mammo performed at [facility]. January 02, 2017, digital woman screen mammo performed at [facility]. December 09, 2012, digital bilateral screening mammo, performed at [facility]. FINDINGS: The breast tissue is almost entirely fat. The Volpara volumetric breast density category is: A. There has been no change in the appearance of the mammogram from the prior studies. There is no interval development of dominant mass, architectural distortion, or grouped microcalcification typical of malignancy. 3-D tomosynthesis shows no additional findings. Assessment: BI-RADS/ACR category 1 mammogram. Negative Mammogram. Recommendation Routine screening mammogram of both breasts in 1 year (for women over age 40). This patient's Lifetime Breast Cancer RIsk is estimated at 19.1 %. This mammogram was interpreted with the aid of an FDA-approved computer-aided dectection system. Electronically Signed By: Rakesh Corona MD 06/04/20 1600
== END ==
LOC: M WHC 14:23
PROVIDERS: ATTEND Physician Assistant Medical
DX: Z12.31 Encounter for screening mammogram for malignant neoplasm of breast (principal)

== ENCOUNTER → 2021-02-12 | Outpatient (REF) | payer MEDICARE, MEDICAID ==
[~2021-02-12] MED LIST changes: -ESCI20TA PO; +ESCI20TA16 PO; +GABA-282 PO; -GABA-843 PO
== END ==
LOC: M SFHCPLAZ 17:18
PROVIDERS: ATTEND Physician Assistant Medical
DX: B34.9 Viral infection, unspecified (principal)
CPT/HCPCS: 87798; 87804; 87880; G0463

== ENCOUNTER → 2021-03-13 | Outpatient (REF) | payer MEDICARE, MEDICAID | LOC: M SFHCPLAZ 12:50 | PROVIDERS: ATTEND Physician Assistant | DX: J40 Bronchitis, not specified as acute or chronic (principal) | CPT/HCPCS: 87426; 87880; G0463; U0003 ==

== ENCOUNTER → 2021-03-28 | Outpatient (CLI) | payer MEDICARE, MEDICAID | LOC: M LABSMTC 12:26 | PROVIDERS: ATTEND Family Medicine | DX: Z20.822 Contact with and (suspected) exposure to COVID-19 (principal) | CPT/HCPCS: C9803; U0003 ==

== ENCOUNTER → 2021-04-01 | Outpatient (REF) | payer MEDICARE, MEDICAID ==
[~2021-04-01] MED LIST changes: +ERGO500029 PO; -VITA50005 PO
== END ==
LOC: M SFHCPLAZ 16:47
PROVIDERS: ATTEND Physician Assistant
DX: R09.81 Nasal congestion (principal)
CPT/HCPCS: 87798; G0463

== ENCOUNTER → 2021-04-02 | Outpatient (REF) | payer MEDICARE ==
[~2021-04-02] MED LIST changes: -ERGO500029 PO; +VITA50005 PO
[2021-04-02 11:04] LABS: BASO # 0.1 10^3/uL (0.0-0.2); BASO % 1.3 % (0.0-1.0); EOS # 0.3 10^3/uL (0.0-0.5); EOS % 5.4 % (0.0-3.0); HEMATOCRIT 38.5 % (36.0-47.0); HEMOGLOBIN 12.7 g/dl (12.0-15.5); LYMPH # 1.6 10^3/uL (1.5-5.0); LYMPH % 29.7 % (24.0-44.0); MEAN CORPUSCULAR HEMOGLOBIN 30.5 pg (27.0-33.0); MEAN CORPUSCULAR VOLUME 92.3 fl (80.0-96.0); MONO # 0.5 10^3/uL (0.0-0.8); NEUTROPHILS % 54.4 % (36.0-66.0); PLATELET COUNT, AUTOMATED 314 10^3/uL (150-450); RED BLOOD COUNT 4.17 10^6/uL (4.00-5.40); WHITE BLOOD COUNT 5.5 10^3/uL (4.0-10.0)
[2021-04-02 11:19] LABS: HEMOGLOBIN A1c 5.8 %
[2021-04-02 11:44] LABS: ALBUMIN 3.9 GM/DL (3.2-5.2); ALT/SGPT 24 U/L (12-78); BILIRUBIN,TOTAL 1.2 MG/DL (0.2-1.0); BLOOD UREA NITROGEN 23 MG/DL (7-18); CALCIUM LEVEL 8.7 MG/DL (8.5-10.1); CARBON DIOXIDE LEVEL 29 MEQ/L (21-32); CHLORIDE LEVEL 104 MEQ/L (98-107); CHOLESTEROL LEVEL 139 MG/DL (<200); CHOLESTEROL RISK RATIO 3.021 (<5); CPK CREATINE PHOSPHOKINASE 49 U/L (26-192); CREATININE FOR GFR 0.68 MG/DL (0.55-1.30); FERRITIN 65 NG/ML (8-252); FREE T4 0.93 NG/DL (0.76-1.46); GLOMERULAR FILTRATION RATE > 60.0 (>51); GLUCOSE, FASTING 109 MG/DL (70-100); HDL CHOLESTEROL 46 MG/DL (>40); IRON (FE) 69 UG/DL (50-170); LDL CHOLESTEROL 53 MG/DL (<100); NON-HDL-C 93 MG/DL; NT-PRO BNP 315 PG/ML (<125); POTASSIUM SERUM 4.7 MEQ/L (3.5-5.1); SODIUM LEVEL 140 MEQ/L (136-145); TRIGLYCERIDES LEVEL 200 MG/DL (<150)
== END ==
LOC: M SFHCPLAZ 09:04
PROVIDERS: ATTEND Physician Assistant Medical
DX: I50.32 Chronic diastolic (congestive) heart failure (principal); D50.9 Iron deficiency anemia, unspecified; E11.9 Type 2 diabetes mellitus without complications; F41.8 Other specified anxiety disorders; E78.2 Mixed hyperlipidemia

== ENCOUNTER → 2021-04-02 | Outpatient (CLI) | payer MEDICARE, MEDICAID ==
--- NOTE | 2021-04-02 09:43 | REPPI ---
INDICATION: PERSISTENT COUGH X 3 WEEKS COMPARISON: 01/04/2020 TECHNIQUE: PA and lateral. FINDINGS: The mediastinum and cardiac silhouette are normal. The lung mccarthy are clear and without acute consolidation, effusion, or pneumothorax. The skeletal structures are intact and normal. IMPRESSION: No acute cardiopulmonary process. <Electronically signed by Feliberto Dailey > 04/02/21 [id number]
== END ==
LOC: M PLAIMG 09:05
PROVIDERS: ATTEND Physician Assistant
DX: R05 Cough (principal); I50.32 Chronic diastolic (congestive) heart failure; D50.9 Iron deficiency anemia, unspecified; E11.9 Type 2 diabetes mellitus without complications; F41.8 Other specified anxiety disorders; E78.2 Mixed hyperlipidemia

== ENCOUNTER → 2021-06-26 | Outpatient (CLI) | payer MEDICARE, MEDICAID ==
[~2021-06-26] MED LIST changes: +ERGO500029 PO; -VITA50005 PO
--- NOTE | 2021-06-26 16:05 | REPMRS ---
Patient History The patient states she had a clinical breast exam in June 2021. Family history of breast cancer at age 50 or over in paternal grandmother, pancreatic cancer at age 50 or over in maternal grandfather. No Hormone Replacement Therapy Patient states no breast complaints today. Patient has signed MRS History Sheet. Digital Woman Screen Mammo: June 26, 2021 - Exam #: [id number] Bilateral CC and MLO view(s) were taken. Technologist: Mei Salinas, Technologist Prior study comparison: June 04, 2020, bilateral digital woman screen mammo performed at [facility]. January 18, 2019, bilateral digital woman screen mammo performed at [facility]. January 02, 2017, digital woman screen mammo performed at [facility]. FINDINGS: The breast tissue is almost entirely fat. The Volpara volumetric breast density category is: A. There has been no change in the appearance of the mammogram from the prior studies. There is no interval development of dominant mass, architectural distortion, or grouped microcalcification typical of malignancy. 3-D tomosynthesis shows no additional findings. Assessment: BI-RADS/ACR category 1 mammogram. Negative Mammogram. Recommendation Routine screening mammogram of both breasts in 1 year (for women over age 40). This patient's [facility] Lifetime Breast Cancer RIsk is estimated at 18.6 %. This mammogram was interpreted with the aid of an FDA-approved computer-aided dectection system. Electronically Signed By: Rakesh Corona MD 06/26/21 [id number]
== END ==
LOC: M WHC 14:40
PROVIDERS: ATTEND Nurse Practitioner Women's Health
DX: Z12.31 Encounter for screening mammogram for malignant neoplasm of breast (principal); Z12.4 Encounter for screening for malignant neoplasm of cervix
CPT/HCPCS: 77063; 77067; 87624; G0123; G0463

== ENCOUNTER → 2021-06-26 | Outpatient (REF) | payer MEDICARE, MEDICAID | LOC: M SFHCWAGY 17:19 | PROVIDERS: ATTEND Nurse Practitioner Women's Health | DX: Z12.4 Encounter for screening for malignant neoplasm of cervix (principal) ==

== ENCOUNTER → 2021-07-15 | Outpatient (CLI) | payer MEDICARE, MEDICAID ==
[2021-07-15 15:47] LABS: ALBUMIN 3.9 GM/DL (3.2-5.2); ALT/SGPT 24 U/L (12-78); BILIRUBIN,TOTAL 1.5 MG/DL (0.2-1.0); BLOOD UREA NITROGEN 20 MG/DL (7-18); CALCIUM LEVEL 8.9 MG/DL (8.5-10.1); CARBON DIOXIDE LEVEL 28 MEQ/L (21-32); CHLORIDE LEVEL 107 MEQ/L (98-107); CREATININE FOR GFR 0.83 MG/DL (0.55-1.30); FREE T4 0.96 NG/DL (0.76-1.46); GLOMERULAR FILTRATION RATE > 60.0 (>51); GLUCOSE, FASTING 147 MG/DL (70-100); NT-PRO BNP 133 PG/ML (<125); PTH INTACT 103.2 PG/ML (18.5-88.0); SODIUM LEVEL 140 MEQ/L (136-145); TOTAL 25(OH) VITAMIN D 45.3 NG/ML (30.0-100.0); TOTAL PROTEIN 6.9 GM/DL (6.4-8.2)
== END ==
LOC: M PLALAB 13:57
PROVIDERS: ATTEND Physician Assistant Medical
DX: E55.9 Vitamin D deficiency, unspecified (principal); F41.8 Other specified anxiety disorders; E66.09 Other obesity due to excess calories; I10 Essential (primary) hypertension

== ENCOUNTER 2021-08-12 11:01 | Emergency (ER) | payer MEDICARE, MEDICAID ==
[~2021-08-12] VITALS: Ht 175.3 cm; Wt 120.9 kg
[2021-08-12 11:02] VITALS: BP 138/79
[2021-08-12] MEDS ORDERED: ELIQ5TAB (11:09)
--- NOTE | 2021-08-12 14:10 | REP ---
INDICATION: low back pain; fall injury. COMPARISON: None. TECHNIQUE: Five views FINDINGS: There is a slight dextroconvex thoracolumbar curve. Minimal marginal osteophytosis is seen bilaterally at L3-4. There is mild to moderate universal L5-S1 disc space narrowing with mild posterior disc space narrowing at all other levels. There is anterior lipping at every level. Degenerative facet joint changes are seen bilaterally at every level particularly L4-5 and L5-S1. There is no evidence of spondylolysis or spondylolisthesis. IMPRESSION: Chronic changes as described above. <Electronically signed by Varinder Ruff > 08/12/21 [id number]
[2021-08-12] MEDS ORDERED: PRED10TA2 PO (14:28)
[2021-08-12] MEDS ORDERED: METH-1165 PO (14:28)
== END 2021-08-12 15:08 | disposition home or self-care (01) ==
LOC: M ED 11:01
DX: S30.0XXA Contusion of lower back and pelvis, initial encounter (principal); W01.0XXA Fall on same level from slipping, tripping and stumbling without subsequent striking against object, initial encounter; Y92.9 Unspecified place or not applicable; Y93.9 Activity, unspecified; Y99.9 Unspecified external cause status; M54.42 Lumbago with sciatica, left side; M25.78 Osteophyte, vertebrae; M48.061 Spinal stenosis, lumbar region without neurogenic claudication; I48.91 Unspecified atrial fibrillation; E11.9 Type 2 diabetes mellitus without complications; I10 Essential (primary) hypertension; F41.9 Anxiety disorder, unspecified; F32.9 Major depressive disorder, single episode, unspecified; Z88.0 Allergy status to penicillin; Z79.01 Long term (current) use of anticoagulants; Z79.899 Other long term (current) drug therapy

== ENCOUNTER → 2021-09-09 | Outpatient (REF) | payer MEDICARE, MEDICAID ==
[~2021-09-09] MED LIST changes: +ELIQ5TAB; +METH-1165 PO; +PRED10TA2 PO
== END ==
LOC: M SFHCPLAZ 17:54
PROVIDERS: ATTEND Physician Assistant
DX: R05.9 Cough, unspecified (principal)

== ENCOUNTER → 2021-09-23 | Outpatient (CLI) | payer MEDICARE, MEDICAID ==
[2021-09-23 11:58] LABS: FREE T4 1.04 NG/DL (0.76-1.46); THYROID STIMULATING HORMONE 2.96 uIU/ML (0.358-3.740)
== END ==
LOC: M PLALAB 09:27
PROVIDERS: ATTEND Physician Assistant Medical
DX: F41.8 Other specified anxiety disorders (principal); I50.32 Chronic diastolic (congestive) heart failure

== ENCOUNTER 2021-10-14 10:15 | Emergency (ER) | payer MEDICARE, MEDICAID ==
[~2021-10-14] VITALS: Ht 175.3 cm; Wt 126.1 kg
[2021-10-14 10:16] VITALS: BP 124/66
== END 2021-10-14 12:05 | disposition left against medical advice (07) ==
LOC: M ED 10:15
DX: Z53.21 Procedure and treatment not carried out due to patient leaving prior to being seen by health care provider (principal)

== ENCOUNTER → 2021-10-14 | Outpatient (CLI) | payer MEDICARE, MEDICAID ==
[~2021-10-14] MED LIST changes: -LISI10TA15 PO; +LISI10TA24 PO
[2021-10-14 14:19] LABS: BASO # 0.1 10^3/uL (0.0-0.2); BASO % 1.1 % (0.0-1.0); EOS # 0.2 10^3/uL (0.0-0.5); EOS % 3.3 % (0.0-3.0); HEMATOCRIT 40.2 % (36.0-47.0); HEMOGLOBIN 13.3 g/dl (12.0-15.5); LYMPH # 1.5 10^3/uL (1.5-5.0); LYMPH % 24.2 % (24.0-44.0); MEAN CORPUSCULAR HEMOGLOBIN 30.1 pg (27.0-33.0); MEAN CORPUSCULAR HGB CONC 33.1 g/dl (32.0-36.5); MONO # 0.6 10^3/uL (0.0-0.8); MONO % 10.2 % (2.0-8.0); NEUTROPHILS # 3.8 10^3/uL (1.5-8.5); PLATELET COUNT, AUTOMATED 290 10^3/uL (150-450); RED BLOOD COUNT 4.42 10^6/uL (4.00-5.40); WHITE BLOOD COUNT 6.3 10^3/uL (4.0-10.0)
[2021-10-14 14:45] LABS: ALBUMIN 4.1 GM/DL (3.2-5.2); ALT/SGPT 230 U/L (12-78); BILIRUBIN,TOTAL 2.3 MG/DL (0.2-1.0); BLOOD UREA NITROGEN 22 MG/DL (7-18); C REACTIVE PROTEIN QUANTITATIV 0.89 MG/DL (0.00-0.30); CALCIUM LEVEL 9.2 MG/DL (8.5-10.1); CARBON DIOXIDE LEVEL 28 MEQ/L (21-32); CHLORIDE LEVEL 106 MEQ/L (98-107); CREATININE FOR GFR 0.87 MG/DL (0.55-1.30); GLOMERULAR FILTRATION RATE > 60.0 (>51); GLUCOSE, FASTING 104 MG/DL (70-100); LIPASE 110 U/L (73-393); POTASSIUM SERUM 4.1 MEQ/L (3.5-5.1); SODIUM LEVEL 140 MEQ/L (136-145); TOTAL PROTEIN 7.2 GM/DL (6.4-8.2)
== END ==
LOC: M LAB 13:23
PROVIDERS: ATTEND Physician Assistant Medical
DX: R10.11 Right upper quadrant pain (principal)

== ENCOUNTER → 2021-10-15 | Outpatient (CLI) | payer MEDICARE, MEDICAID ==
[~2021-10-15] MED LIST changes: +LISI10TA15 PO; -LISI10TA24 PO
[2021-10-15 15:33] LABS: BASO # 0.1 10^3/uL (0.0-0.2); BASO % 1.2 % (0.0-1.0); EOS # 0.3 10^3/uL (0.0-0.5); EOS % 3.5 % (0.0-3.0); HEMATOCRIT 38.5 % (36.0-47.0); HEMOGLOBIN 12.8 g/dl (12.0-15.5); LYMPH # 1.6 10^3/uL (1.5-5.0); LYMPH % 21.4 % (24.0-44.0); MEAN CORPUSCULAR HEMOGLOBIN 30.1 pg (27.0-33.0); MEAN CORPUSCULAR HGB CONC 33.2 g/dl (32.0-36.5); MEAN CORPUSCULAR VOLUME 90.6 fl (80.0-96.0); MONO # 0.8 10^3/uL (0.0-0.8); NEUTROPHILS # 4.8 10^3/uL (1.5-8.5); NEUTROPHILS % 62.5 % (36.0-66.0); PLATELET COUNT, AUTOMATED 327 10^3/uL (150-450); RED BLOOD COUNT 4.25 10^6/uL (4.00-5.40); WHITE BLOOD COUNT 7.7 10^3/uL (4.0-10.0)
[2021-10-15 15:43] LABS: INR 1.12; PROTHROMBIN TIME 14.8 SECONDS (12.7-14.5)
[2021-10-15 15:44] LABS: PARTIAL THROMBOPLASTIN TIME 35.1 SECONDS (25.9-37.0)
[2021-10-15 15:46] LABS: D-DIMER QUANT 512.04 ng/ml (<500)
[2021-10-15 16:02] LABS: ALBUMIN 3.9 GM/DL (3.2-5.2); ALT/SGPT 150 U/L (12-78); BILIRUBIN,DIRECT 0.3 MG/DL (0.0-0.2); BILIRUBIN,TOTAL 1.5 MG/DL (0.2-1.0); BLOOD UREA NITROGEN 25 MG/DL (7-18); C REACTIVE PROTEIN QUANTITATIV 0.89 MG/DL (0.00-0.30); CALCIUM LEVEL 9.3 MG/DL (8.5-10.1); CARBON DIOXIDE LEVEL 29 MEQ/L (21-32); CHLORIDE LEVEL 107 MEQ/L (98-107); CREATININE FOR GFR 0.82 MG/DL (0.55-1.30); GLOMERULAR FILTRATION RATE > 60.0 (>51); GLUCOSE, FASTING 102 MG/DL (70-100); LIPASE 134 U/L (73-393); SODIUM LEVEL 141 MEQ/L (136-145)
[2021-10-15 16:04] LABS: CK-MB VALUE MASS < 1.0 NG/ML (<3.6); CPK CREATINE PHOSPHOKINASE 70 U/L (26-192); MB/CK RELATIVE INDEX 1.43 (< OR =4)
[2021-10-15 16:10] LABS: HEPATITIS B SURFACE ANTIBODY POSITIVE (POSITIVE)
[2021-10-15 16:21] LABS: HEPATITIS B SURFACE ANTIGEN NEGATIVE (NEGATIVE)
[2021-10-15 16:49] LABS: HEPATITIS C VIRUS ABY INDEX 0.1 INDEX (<0.8)
[2021-10-18 16:12] LABS: AFP TUMOR TOTAL 1.9 ng/mL (0.0-8.0); HEPATITIS A IgG TOTAL Negative (Negative)
== END ==
LOC: M PLALAB 14:36
PROVIDERS: ATTEND Physician Assistant Medical
DX: K76.0 Fatty (change of) liver, not elsewhere classified (principal); R07.1 Chest pain on breathing; R10.11 Right upper quadrant pain

== ENCOUNTER → 2021-10-15 | Outpatient (CLI) | payer MEDICARE, MEDICAID ==
--- NOTE | 2021-10-15 10:23 | REP ---
INDICATION: ABD PAIN COMPARISON: CT dated 07/25/2019 TECHNIQUE: Real time ekyes scale ultrasound examination using curved array transducer. FINDINGS: Liver is enlarged and mildly hyperechoic suggesting fatty infiltration without focal hepatic lesion identified. Liver measures 23 cm in craniocaudal length. Pancreas is incompletely evaluated due to interposed bowel gas. The gallbladder demonstrates suspected small stones along the dependent wall without pericholecystic fluid or gallbladder wall thickening. No biliary ductal dilatation is appreciated and the common bile duct measures 5.0 mm diameter. Right kidney is normal in reniform shape without hydronephrosis and measures 11.0 x 5.7 x 4.8 cm. No ascites in the visualized right upper quadrant. IMPRESSION: Hepatomegaly and hepatosteatosis. Small layering gallstones cannot be excluded. <Electronically signed by Feliberto Dailey > 10/15/21 [id number]
== END ==
LOC: M RAD 09:36
PROVIDERS: ATTEND Physician Assistant Medical
DX: K76.0 Fatty (change of) liver, not elsewhere classified (principal); R10.11 Right upper quadrant pain; R07.1 Chest pain on breathing
CPT/HCPCS: 36415; 76705; 80053; 82107; 82248; 82550; 82553; 83690; 84484; 85025; 85379; 85610; 85730; 86140; 86706; 86708; 86709; 86803; 87340; 93005; G0463

== ENCOUNTER → 2021-11-01 | Outpatient (CLI) | payer MEDICARE, MEDICAID ==
[~2021-11-01] MED LIST changes: -LISI10TA15 PO; +LISI10TA24 PO
== END ==
LOC: M RAD 07:34
PROVIDERS: ATTEND Physician Assistant Medical
DX: R16.0 Hepatomegaly, not elsewhere classified (principal); K76.0 Fatty (change of) liver, not elsewhere classified

== ENCOUNTER → 2021-11-28 | Outpatient (CLI) | payer MEDICARE, MEDICAID | LOC: M RAD 07:35 | PROVIDERS: ATTEND Physician Assistant Medical | DX: K80.00 Calculus of gallbladder with acute cholecystitis without obstruction (principal) | CPT/HCPCS: 78227; A9537 ==

== ENCOUNTER → 2022-05-08 | Outpatient (CLI) | payer MEDICARE, MEDICAID ==
[~2022-05-08] MED LIST changes: -ACET300T2 PO; +ACET300T53 PO
[2022-05-08 15:24] LABS: BASO # 0.1 10^3/uL (0.0-0.2); BASO % 1.3 % (0.0-1.0); EOS # 0.2 10^3/uL (0.0-0.5); EOS % 3.5 % (0.0-3.0); HEMATOCRIT 38.7 % (36.0-47.0); HEMOGLOBIN 12.6 g/dl (12.0-15.5); LYMPH # 1.5 10^3/uL (1.5-5.0); LYMPH % 25.1 % (24.0-44.0); MEAN CORPUSCULAR HEMOGLOBIN 29.5 pg (27.0-33.0); MEAN CORPUSCULAR HGB CONC 32.6 g/dl (32.0-36.5); MEAN CORPUSCULAR VOLUME 90.6 fl (80.0-96.0); MONO # 0.7 10^3/uL (0.0-0.8); MONO % 10.7 % (2.0-8.0); NEUTROPHILS # 3.6 10^3/uL (1.5-8.5); NEUTROPHILS % 59.1 % (36.0-66.0); PLATELET COUNT, AUTOMATED 342 10^3/uL (150-450); RED BLOOD COUNT 4.27 10^6/uL (4.00-5.40); WHITE BLOOD COUNT 6.1 10^3/uL (4.0-10.0)
[2022-05-08 15:48] LABS: CHOLESTEROL RISK RATIO 2.847 (<5); FREE T4 1.16 NG/DL (0.76-1.46); THYROID STIMULATING HORMONE 3.34 uIU/ML (0.358-3.740)
== END ==
LOC: M PLALAB 13:21
PROVIDERS: ATTEND Family Medicine
DX: E11.9 Type 2 diabetes mellitus without complications (principal)

== ENCOUNTER 2022-06-04 18:19 | Emergency (ER) | payer MEDICARE, MEDICAID ==
[~2022-06-04] VITALS: Ht 175.3 cm; Wt 120.9 kg
[2022-06-04 19:48] LABS: BASO # 0.1 10^3/uL (0.0-0.2); BASO % 0.5 % (0.0-1.0); EOS # 0.1 10^3/uL (0.0-0.5); EOS % 1.3 % (0.0-3.0); HEMATOCRIT 37.6 % (36.0-47.0); HEMOGLOBIN 12.4 g/dl (12.0-15.5); LYMPH # 1.5 10^3/uL (1.5-5.0); LYMPH % 14.7 % (24.0-44.0); MEAN CORPUSCULAR HEMOGLOBIN 30.5 pg (27.0-33.0); MEAN CORPUSCULAR VOLUME 92.6 fl (80.0-96.0); MONO # 1.1 10^3/uL (0.0-0.8); MONO % 10.6 % (2.0-8.0); NEUTROPHILS # 7.3 10^3/uL (1.5-8.5); NEUTROPHILS % 72.6 % (36.0-66.0); PLATELET COUNT, AUTOMATED 310 10^3/uL (150-450); RED BLOOD COUNT 4.06 10^6/uL (4.00-5.40); WHITE BLOOD COUNT 10.1 10^3/uL (4.0-10.0)
[2022-06-04] MEDS ORDERED: SUCRALFATE 1 GM TAB PO ONE (19:50)
[2022-06-04] MEDS ORDERED: PANTOPRAZOLE 40MG VIAL IV ONE (19:50)
[2022-06-04] MEDS ORDERED: GI COCKTAIL 50ML BTL(HYOSCYAMINE/MAALOX/LIDOCAINE VISCOUS)(1:3:1) PO ONE (19:50)
[2022-06-04 20:08] LABS: BLOOD UREA NITROGEN 26 MG/DL (7-18); CALCIUM LEVEL 9.3 MG/DL (8.5-10.1); CARBON DIOXIDE LEVEL 26 MEQ/L (21-32); CHLORIDE LEVEL 112 MEQ/L (98-107); CREATININE FOR GFR 0.98 MG/DL (0.55-1.30); GLOMERULAR FILTRATION RATE > 60.0 (>51); GLUCOSE, FASTING 138 MG/DL (70-100); POTASSIUM SERUM 3.8 MEQ/L (3.5-5.1); SODIUM LEVEL 144 MEQ/L (136-145)
[2022-06-04 20:13] LABS: CK-MB VALUE MASS 1.1 NG/ML (<3.6); MB/CK RELATIVE INDEX 1.57 (< OR =4)
[2022-06-04] MEDS ORDERED: ISOVUE-370 76% 100ML VIAL As Ordered ONE (20:29)
[2022-06-04 21:26] LABS: CK-MB VALUE MASS 1.1 NG/ML (<3.6); MB/CK RELATIVE INDEX 1.47 (< OR =4)
[2022-06-04] MEDS ORDERED: ONDANSETRON 4MG 2ML VIAL IV ONE (21:40)
[2022-06-04] MEDS ORDERED: MORPHINE 4 MG/ML 1ML VIAL/SYRINGE IV ONE (21:40)
[2022-06-04] MEDS ORDERED: FAMOTIDINE 20MG/2ML VIAL IVP ONE (21:40)
[2022-06-04 21:48] LABS: INR 1.15; PROTHROMBIN TIME 15.1 SECONDS (12.7-14.5)
[2022-06-04 21:49] LABS: PARTIAL THROMBOPLASTIN TIME 33.2 SECONDS (25.9-37.0)
[2022-06-04 22:20] VITALS: BP 131/63
[2022-06-04] MEDS ORDERED: CARA1TAB6 PO (22:49)
[2022-06-04] MEDS ORDERED: OMEP-173 PO (22:49)
== END 2022-06-04 23:00 | disposition home or self-care (01) ==
LOC: M ED 18:19
DX: R10.13 Epigastric pain (principal); R07.9 Chest pain, unspecified; M54.50 Low back pain, unspecified; I10 Essential (primary) hypertension; E11.9 Type 2 diabetes mellitus without complications; Z86.79 Personal history of other diseases of the circulatory system; Z79.01 Long term (current) use of anticoagulants; Z88.0 Allergy status to penicillin; Z79.4 Long term (current) use of insulin; Z79.899 Other long term (current) drug therapy
CPT/HCPCS: 36415; 71045; 71275; 80048; 82550; 82553; 84484; 85025; 85610; 85730; 93005; 93041; 94760; 96374; 96375; 99285; C9113; J2270; J2405; Q9967

== ENCOUNTER → 2022-06-30 | Outpatient (CLI) | payer MEDICAID, MEDICARE ==
[~2022-06-30] MED LIST changes: +CARA1TAB6 PO; +OMEP-173 PO
== END ==
LOC: M WHC 13:45
PROVIDERS: ATTEND Physician Assistant Medical
DX: Z12.31 Encounter for screening mammogram for malignant neoplasm of breast (principal)

== ENCOUNTER → 2022-07-02 | Outpatient (CLI) | payer MEDICARE, MEDICAID | LOC: M RAD 09:36 | PROVIDERS: ATTEND Physician Assistant Medical | DX: R59.9 Enlarged lymph nodes, unspecified (principal); K76.89 Other specified diseases of liver; K80.20 Calculus of gallbladder without cholecystitis without obstruction ==

== ENCOUNTER → 2022-07-11 | Outpatient (CLI) | payer MEDICARE, MEDICAID ==
[2022-07-11 16:21] LABS: BLOOD UREA NITROGEN 20 MG/DL (7-18); CALCIUM LEVEL 9.8 MG/DL (8.5-10.1); CARBON DIOXIDE LEVEL 28 MEQ/L (21-32); CHLORIDE LEVEL 106 MEQ/L (98-107); CREATININE FOR GFR 0.88 MG/DL (0.55-1.30); GLOMERULAR FILTRATION RATE > 60.0 (>51); GLUCOSE, FASTING 137 MG/DL (70-100); PHOSPHORUS LEVEL 2.9 MG/DL (2.5-4.9); POTASSIUM SERUM 4.1 MEQ/L (3.5-5.1); SODIUM LEVEL 138 MEQ/L (136-145)
== END ==
LOC: M PLALAB 12:14
PROVIDERS: ATTEND Physician Assistant Medical
DX: K76.89 Other specified diseases of liver (principal)

== ENCOUNTER → 2022-07-18 | Outpatient (CLI) | payer MEDICAID, MEDICARE ==
[~2022-07-18] MED LIST changes: +GASTROGRAFIN SOLUTION 30ML (Q9963) As Ordered ONE; +ISOVUE-370 76% 100ML VIAL As Ordered ONE
== END ==
LOC: M RAD 09:50
PROVIDERS: ATTEND Physician Assistant Medical
DX: R22.2 Localized swelling, mass and lump, trunk (principal); K76.89 Other specified diseases of liver; K76.0 Fatty (change of) liver, not elsewhere classified
CPT/HCPCS: 74177; Q9963; Q9967

== ENCOUNTER → 2022-07-23 | Outpatient (CLI) | payer MEDICARE, MEDICAID ==
[~2022-07-23] MED LIST changes: -GASTROGRAFIN SOLUTION 30ML (Q9963) As Ordered ONE; -ISOVUE-370 76% 100ML VIAL As Ordered ONE
[2022-07-23 11:13] LABS: BASO # 0.1 10^3/uL (0.0-0.2); BASO % 1.2 % (0.0-1.0); EOS # 0.2 10^3/uL (0.0-0.5); EOS % 3.5 % (0.0-3.0); HEMATOCRIT 39.5 % (36.0-47.0); HEMOGLOBIN 12.6 g/dl (12.0-15.5); LYMPH # 1.5 10^3/uL (1.5-5.0); LYMPH % 21.5 % (24.0-44.0); MEAN CORPUSCULAR HEMOGLOBIN 29.6 pg (27.0-33.0); MEAN CORPUSCULAR HGB CONC 31.9 g/dl (32.0-36.5); MEAN CORPUSCULAR VOLUME 92.7 fl (80.0-96.0); MONO # 0.7 10^3/uL (0.0-0.8); MONO % 10.5 % (2.0-8.0); NEUTROPHILS # 4.4 10^3/uL (1.5-8.5); NEUTROPHILS % 63.2 % (36.0-66.0); PLATELET COUNT, AUTOMATED 310 10^3/uL (150-450); RED BLOOD COUNT 4.26 10^6/uL (4.00-5.40); WHITE BLOOD COUNT 6.9 10^3/uL (4.0-10.0)
[2022-07-23 12:52] LABS: CA 125 48.9 U/ML (<30.2)
== END ==
LOC: M PLALAB 08:52
PROVIDERS: ATTEND Physician Assistant Medical
DX: K66.8 Other specified disorders of peritoneum (principal)

== ENCOUNTER → 2022-07-25 | Outpatient (CLI) | payer MEDICAID, MEDICARE ==
[~2022-07-25] MED LIST changes: +E-Z-GAS II EFFERVESCENT PACKET (SODIUM BICARB./CITRIC ACID/SIMETHICONE) As Ordered ONE; +E-Z-HD 98% w/w 340GM SUSP BTL As Ordered ONE; +E-Z-PAQUE 96% w/w SUSP 176GM BTL As Ordered ONE
== END ==
LOC: M RAD 08:20
PROVIDERS: ATTEND Physician Assistant Medical
DX: K66.8 Other specified disorders of peritoneum (principal)

== ENCOUNTER → 2022-08-14 | Outpatient (CLI) | payer MEDICAID, MEDICARE ==
[~2022-08-14] MED LIST changes: -E-Z-GAS II EFFERVESCENT PACKET (SODIUM BICARB./CITRIC ACID/SIMETHICONE) As Ordered ONE; -E-Z-HD 98% w/w 340GM SUSP BTL As Ordered ONE; -E-Z-PAQUE 96% w/w SUSP 176GM BTL As Ordered ONE; +PROBCAP14 PO
[2022-08-14 14:20] LABS: BASO # 0.1 10^3/uL (0.0-0.2); BASO % 1.2 % (0.0-1.0); EOS # 0.2 10^3/uL (0.0-0.5); EOS % 3.1 % (0.0-3.0); HEMATOCRIT 40.1 % (36.0-47.0); HEMOGLOBIN 12.6 g/dl (12.0-15.5); LYMPH # 1.4 10^3/uL (1.5-5.0); LYMPH % 21.3 % (24.0-44.0); MEAN CORPUSCULAR HEMOGLOBIN 29.8 pg (27.0-33.0); MEAN CORPUSCULAR HGB CONC 31.4 g/dl (32.0-36.5); MEAN CORPUSCULAR VOLUME 94.8 fl (80.0-96.0); MONO # 0.7 10^3/uL (0.0-0.8); MONO % 10.4 % (2.0-8.0); NEUTROPHILS # 4.3 10^3/uL (1.5-8.5); NEUTROPHILS % 63.7 % (36.0-66.0); PLATELET COUNT, AUTOMATED 343 10^3/uL (150-450); RED BLOOD COUNT 4.23 10^6/uL (4.00-5.40); WHITE BLOOD COUNT 6.8 10^3/uL (4.0-10.0)
[2022-08-14 15:13] LABS: ALBUMIN 3.8 GM/DL (3.2-5.2); ALT/SGPT 28 U/L (12-78); BILIRUBIN,TOTAL 1.3 MG/DL (0.2-1.0); BLOOD UREA NITROGEN 25 MG/DL (7-18); CALCIUM LEVEL 8.7 MG/DL (8.5-10.1); CARBON DIOXIDE LEVEL 28 MEQ/L (21-32); CHLORIDE LEVEL 106 MEQ/L (98-107); CREATININE FOR GFR 0.95 MG/DL (0.55-1.30); GLOMERULAR FILTRATION RATE > 60.0 (>51); GLUCOSE, FASTING 116 MG/DL (70-100); NT-PRO BNP 158 PG/ML (<125); POTASSIUM SERUM 4.5 MEQ/L (3.5-5.1); SODIUM LEVEL 140 MEQ/L (136-145); TOTAL PROTEIN 6.8 GM/DL (6.4-8.2)
[2022-08-14 15:34] LABS: HEMOGLOBIN A1c 5.6 %
== END ==
LOC: M PLALAB 09:16
PROVIDERS: ATTEND Physician Assistant Medical
DX: I50.32 Chronic diastolic (congestive) heart failure (principal); R79.89 Other specified abnormal findings of blood chemistry; E11.9 Type 2 diabetes mellitus without complications; K21.9 Gastro-esophageal reflux disease without esophagitis

== ENCOUNTER → 2022-08-19 | Outpatient (CLI) | payer MEDICARE, MEDICAID ==
[2022-08-19 10:33] LABS: INR 1.2; PROTHROMBIN TIME 15.6 SECONDS (12.7-14.5)
== END ==
LOC: M LAB 09:42
PROVIDERS: ATTEND Surgery
DX: Z01.810 Encounter for preprocedural cardiovascular examination (principal); Z79.01 Long term (current) use of anticoagulants

== ENCOUNTER → 2022-08-25 | Outpatient (CLI) | payer MEDICARE, MEDICAID ==
[~2022-08-25] MED LIST changes: +ALBU2.5V10 INH; -ELIQ5TAB; +ELIQ5TAB PO; +KETO2SHA8 TOP; +LEXA1TAB2 PO; +MELA10TA14 PO; +SIME180C25 PO; +TURM1TAB PO
== END ==
LOC: M WHC 11:52
PROVIDERS: ATTEND Internal Medicine Medical Oncology
DX: N83.201 Unspecified ovarian cyst, right side (principal)

== ENCOUNTER → 2022-09-14 | Outpatient (CLI) | payer MEDICARE, MEDICAID | LOC: M LABSMTC 11:29 | PROVIDERS: ATTEND Anesthesiology | DX: Z20.828 Contact with and (suspected) exposure to other viral communicable diseases (principal); Z11.59 Encounter for screening for other viral diseases ==

== ENCOUNTER 2022-09-18 06:47 | Day surgery (SDC) | payer MEDICARE, MEDICAID ==
[~2022-09-18] VITALS: Ht 175.3 cm; Wt 113.4 kg
[~2022-09-18 06:47] MED LIST changes: +NS 1,000 ML IV ONE
[2022-09-18] MEDS ORDERED: propofoL 200 MG/20 ML VIAL As Ordered ONE (06:49)
[2022-09-18] MEDS ORDERED: GLYCOPYRROLATE INJ 0.2 MG/ML 2 ML VIAL As Ordered ONE (06:50)
[2022-09-18] MEDS ORDERED: LIDOCAINE 2% 100MG/5ML SDV (FOR ANES.) As Ordered ONE (06:50)
[2022-09-18 08:13] VITALS: BP 150/93
== END 2022-09-18 08:47 | disposition home or self-care (01) ==
LOC: M OPP 06:47
PROVIDERS: ATTEND Surgery
DX: Z01.818 Encounter for other preprocedural examination (principal); D12.2 Benign neoplasm of ascending colon; K57.30 Diverticulosis of large intestine without perforation or abscess without bleeding; R93.3 Abnormal findings on diagnostic imaging of other parts of digestive tract; Z79.02 Long term (current) use of antithrombotics/antiplatelets; Z79.84 Long term (current) use of oral hypoglycemic drugs; Z79.899 Other long term (current) drug therapy; Z88.0 Allergy status to penicillin; I10 Essential (primary) hypertension; E11.9 Type 2 diabetes mellitus without complications; F41.9 Anxiety disorder, unspecified; G47.30 Sleep apnea, unspecified; E78.00 Pure hypercholesterolemia, unspecified; F32.9 Major depressive disorder, single episode, unspecified; Z85.43 Personal history of malignant neoplasm of ovary; Z87.448 Personal history of other diseases of urinary system; Z90.49 Acquired absence of other specified parts of digestive tract; Z98.51 Tubal ligation status

== ENCOUNTER → 2022-09-21 | Outpatient (CLI) | payer MEDICARE, MEDICAID ==
[~2022-09-21] MED LIST changes: -NS 1,000 ML IV ONE
== END ==
LOC: M LABSMTC 11:02
PROVIDERS: ATTEND Anesthesiology
DX: Z20.828 Contact with and (suspected) exposure to other viral communicable diseases (principal); Z11.59 Encounter for screening for other viral diseases

== ENCOUNTER → 2022-09-24 | Outpatient (CLI) | payer MEDICARE, MEDICAID ==
[~2022-09-24] MED LIST changes: +ATROPINE SULF 1MG/10ML SYRINGE (J0461) As Ordered ONE; +LIDOCAINE 1% MDV 20ML VIAL As Ordered ONE; +MIDAZOLAM INJ 2MG/2ML VIAL (J2250 PER 1MG) As Ordered ONE; +NS 1,000 ML IV SCH; +ONDA-84 PO; +OXYC1TAB23 PO; +PROC10TA5 PO; +VANCOMYCIN 1000MG/20ML VIAL As Ordered ONE; +VANCOMYCIN HCL 1,000 MG, VIAL MATE ADAPTER 1 EACH in NS 250 ML IV ONE; +diphenhydrAMINE 50MG/ML VIAL As Ordered ONE; +fentaNYL 100 MCG/2 ML INJECTION As Ordered ONE
[2022-09-24 17:10] VITALS: BP 132/73
== END ==
LOC: M IRPRO 12:30
PROVIDERS: ATTEND Internal Medicine Medical Oncology
DX: C56.9 Malignant neoplasm of unspecified ovary (principal)
CPT/HCPCS: 36561; 99152; 99153; C1769; C1788; C1894; J1642; J1644; J2250; J3010; J3370

== ENCOUNTER 2022-10-03 07:31 | Inpatient (IN) | payer MEDICAID, MEDICARE ==
[~2022-10-03] VITALS: Ht 175.3 cm; Wt 115.6 kg
[~2022-10-03 07:31] MED LIST changes: -ATROPINE SULF 1MG/10ML SYRINGE (J0461) As Ordered ONE; -LIDOCAINE 1% MDV 20ML VIAL As Ordered ONE; -MIDAZOLAM INJ 2MG/2ML VIAL (J2250 PER 1MG) As Ordered ONE; -NS 1,000 ML IV SCH; -VANCOMYCIN 1000MG/20ML VIAL As Ordered ONE; -VANCOMYCIN HCL 1,000 MG, VIAL MATE ADAPTER 1 EACH in NS 250 ML IV ONE; -diphenhydrAMINE 50MG/ML VIAL As Ordered ONE; -fentaNYL 100 MCG/2 ML INJECTION As Ordered ONE
[2022-10-03] MEDS ORDERED: NS 1,000 ML IV ONE (08:05)
[2022-10-03 08:23] LABS: HEMATOCRIT 42.8 % (36.0-47.0); HEMOGLOBIN 13.8 g/dl (12.0-15.5); MEAN CORPUSCULAR HEMOGLOBIN 29.2 pg (27.0-33.0); MEAN CORPUSCULAR HGB CONC 32.2 g/dl (32.0-36.5); MEAN CORPUSCULAR VOLUME 90.7 fl (80.0-96.0); PLATELET COUNT, AUTOMATED 278 10^3/uL (150-450); RED BLOOD COUNT 4.72 10^6/uL (4.00-5.40); WHITE BLOOD COUNT 15.1 10^3/uL (4.0-10.0)
[2022-10-03] MEDS ORDERED: KCL 10MEQ/100ML SWI (KRUN) 10 MEQ in IV 1 EA IV ONE (08:30)
[2022-10-03] MEDS ORDERED: DIGOXIN INJ 0.5 MG/2 ML AMP IV ONE (08:35)
[2022-10-03 08:37] LABS: INR 1.11; PROTHROMBIN TIME 14.5 SECONDS (12.5-14.5)
[2022-10-03 08:38] LABS: PARTIAL THROMBOPLASTIN TIME 62.8 SECONDS (24.8-34.2)
[2022-10-03] MEDS ORDERED: ACETAMINOPHEN TAB 650MG DOSE (2X325MG) PO ONE (08:40)
[2022-10-03] MEDS ORDERED: ONDANSETRON 4MG 2ML VIAL IV ONE (08:40)
[2022-10-03 08:54] LABS: ALBUMIN 3.9 G/DL (3.2-5.2); ALKALINE PHOSPHATASE 131 U/L (46-116); ALT/SGPT 26 U/L (7.0-40); AST/SGOT 20 U/L (<34); BILIRUBIN,DIRECT 0.2 MG/DL (<0.4); BILIRUBIN,TOTAL 0.6 MG/DL (0.3-1.2); BLOOD UREA NITROGEN 20 MG/DL (9-23); CALCIUM LEVEL 9.4 MG/DL (8.3-10.6); CARBON DIOXIDE LEVEL 24 MMOL/L (20-31); CHLORIDE LEVEL 105 MMOL/L (98-107); CK-MB VALUE MASS < 1.0 NG/ML (<3.6); CPK CREATINE PHOSPHOKINASE 19 U/L (34-145); CREATININE FOR GFR 1.02 MG/DL (0.55-1.30); GLOMERULAR FILTRATION RATE 58.8 (>45); GLUCOSE, FASTING 150 MG/DL (74-106); LIPASE 29 U/L (12-53); MB/CK RELATIVE INDEX 5.26 (< OR =4); POTASSIUM SERUM 3.1 MMOL/L (3.5-5.1); SODIUM LEVEL 142 MMOL/L (136-145); TOTAL PROTEIN 6.5 G/DL (5.7-8.2)
[2022-10-03 09:17] LABS: ATYPICAL LYMPH 6 % (0-5); BASOPHILS 1 % (0-1); LYMPHOCYTES 16 % (16-44); MONOCYTES 9 % (0-5); NEUTROPHILS 49 % (28-66)
[2022-10-03 09:18] LABS: PLATELET ESTIMATE NORMAL (NORMAL)
[2022-10-03] MEDS ORDERED: LevoFLOXacin IV 750 MG in IV 1 EA IV ONE (09:45)
[2022-10-03] MEDS ORDERED: ISOVUE-370 76% 100ML VIAL As Ordered ONE (09:56)
[2022-10-03 10:06] LABS: CK-MB VALUE MASS < 1.0 NG/ML (<3.6); CPK CREATINE PHOSPHOKINASE 26 U/L (34-145); MAGNESIUM LEVEL 1.7 MG/DL (1.8-2.4); MB/CK RELATIVE INDEX 3.84 (< OR =4)
[2022-10-03] MEDS ORDERED: NS 2,400 ML in IV 1 EA IV ONE (10:15)
[2022-10-03] MEDS ORDERED: MORPHINE 2 MG/ML 1ML VIAL IV ONE (10:35)
[2022-10-03] MEDS ORDERED: RA T500C2 PO (11:12)
[2022-10-03] MEDS ORDERED: ELIQ5TAB PO (11:12)
[2022-10-03] MEDS ORDERED: HOME MED LIST COMPLETE! XX SCH (11:15)
[2022-10-03] MEDS ORDERED: MORPHINE 4 MG/ML 1ML VIAL IV PRN (11:30)
[2022-10-03] MEDS ORDERED: MAG SULF 1GM/100ML (MAG RUN) 1 GM in IV 1 EA IV ONE (12:00)
[2022-10-03] MEDS: PANTOPRAZOLE 40MG VIAL IV SCH (14:32)
[2022-10-03] MEDS: NS 1,000 ML IV SCH ×2 (14:32→22:04)
[2022-10-03] MEDS: metroNIDAZOLE 500 MG in IV 1 EA IV SCH ×2 (14:32→22:02)
[2022-10-03] MEDS: ENOXAPARIN 120MG/0.8ML SYRINGE (J1650 PER 10MG) SC SCH ×2 (14:32→22:03)
[2022-10-03] MEDS: KCL 10MEQ/100ML SWI (KRUN) 10 MEQ in IV 1 EA IV SCH ×4 (15:54→22:02)
[2022-10-03] MEDS: ONDANSETRON 4MG 2ML VIAL IV PRN ×2 (15:54→22:03)
[2022-10-03 17:02] LABS: BLOOD UREA NITROGEN 17 MG/DL (9-23); CALCIUM LEVEL 8.8 MG/DL (8.3-10.6); CARBON DIOXIDE LEVEL 24 MMOL/L (20-31); CHLORIDE LEVEL 107 MMOL/L (98-107); CREATININE FOR GFR 0.87 MG/DL (0.55-1.30); GLOMERULAR FILTRATION RATE > 60.0 (>45); GLUCOSE, FASTING 158 MG/DL (74-106); POTASSIUM SERUM 3.1 MMOL/L (3.5-5.1); SODIUM LEVEL 141 MMOL/L (136-145)
[2022-10-03] MEDS ORDERED: KCL 10MEQ IN STERILE WATER 100ML As Ordered ONE ×2 (21:53→21:56)
[2022-10-03 22:17] LABS: BLOOD UREA NITROGEN 18 MG/DL (9-23); CARBON DIOXIDE LEVEL 25 MMOL/L (20-31); CHLORIDE LEVEL 109 MMOL/L (98-107); CREATININE FOR GFR 0.86 MG/DL (0.55-1.30); GLOMERULAR FILTRATION RATE > 60.0 (>45); GLUCOSE, FASTING 136 MG/DL (74-106); POTASSIUM SERUM 3.5 MMOL/L (3.5-5.1); SODIUM LEVEL 142 MMOL/L (136-145)
[2022-10-04] MEDS: NS 1,000 ML IV SCH ×3 (00:47→18:54)
[2022-10-04] MEDS: ONDANSETRON 4MG 2ML VIAL IV PRN (05:38)
[2022-10-04] MEDS: metroNIDAZOLE 500 MG in IV 1 EA IV SCH ×3 (06:08→21:27)
[2022-10-04 09:20] LABS: HEMATOCRIT 34.3 % (36.0-47.0); MEAN CORPUSCULAR HEMOGLOBIN 30.1 pg (27.0-33.0); MEAN CORPUSCULAR HGB CONC 32.7 g/dl (32.0-36.5); MEAN CORPUSCULAR VOLUME 92.2 fl (80.0-96.0); PLATELET COUNT, AUTOMATED 207 10^3/uL (150-450); RED BLOOD COUNT 3.72 10^6/uL (4.00-5.40); WHITE BLOOD COUNT 17.7 10^3/uL (4.0-10.0)
[2022-10-04 09:21] LABS: HEMOGLOBIN 11.2 g/dl (12.0-15.5)
[2022-10-04 09:42] LABS: BLOOD UREA NITROGEN 18 MG/DL (9-23); CALCIUM LEVEL 8.8 MG/DL (8.3-10.6); CARBON DIOXIDE LEVEL 23 MMOL/L (20-31); CHLORIDE LEVEL 111 MMOL/L (98-107); CREATININE FOR GFR 0.84 MG/DL (0.55-1.30); GLOMERULAR FILTRATION RATE > 60.0 (>45); GLUCOSE, FASTING 128 MG/DL (74-106); MAGNESIUM LEVEL 1.7 MG/DL (1.8-2.4); POTASSIUM SERUM 3.7 MMOL/L (3.5-5.1); SODIUM LEVEL 145 MMOL/L (136-145)
[2022-10-04 09:44] LABS: ATYPICAL LYMPH 2 % (0-5); BASOPHILS 1 % (0-1); EOSINOPHILS 3 % (0-3); LYMPHOCYTES 11 % (16-44); METAMYELOCYTES 1 % (0-0); MONOCYTES 6 % (0-5); MYELOCYTES 1 % (0-0); NEUTROPHILS 69 % (28-66)
[2022-10-04 09:47] LABS: PLATELET ESTIMATE NORMAL (NORMAL); POLYCHROMASIA 1+
[2022-10-04] MEDS: ENOXAPARIN 120MG/0.8ML SYRINGE (J1650 PER 10MG) SC SCH ×2 (09:58→21:50)
[2022-10-04] MEDS ORDERED: MAG SULF 1GM/100ML (MAG RUN) 1 GM in IV 1 EA IV ONE (10:00)
[2022-10-04] MEDS ORDERED: LevoFLOXacin IV 750 MG in IV 1 EA IV SCH (10:00)
[2022-10-04] MEDS ORDERED: ACETAMINOPHEN 1000MG 100ML IV BAG IV ONE (10:20)
[2022-10-04 12:27] VITALS: BP 121/58
[2022-10-04] MEDS: PANTOPRAZOLE 40MG VIAL IV SCH (14:26)
[2022-10-04 15:25] VITALS: BP 140/72
[2022-10-04] MEDS ORDERED: DIGOXIN INJ 0.5 MG/2 ML AMP IV STA (16:42)
[2022-10-04] MEDS ORDERED: METOPROLOL 5 MG/5 ML VIAL IV STA (16:42)
[2022-10-04 16:50] VITALS: BP 144/78
[2022-10-04] MEDS ORDERED: METOPROLOL 5 MG/5 ML VIAL IV ONE (18:05)
[2022-10-04 18:18] VITALS: BP 129/65
[2022-10-04 18:23] VITALS: BP 118/67
[2022-10-04] MEDS ORDERED: METOPROLOL SUCC (TopROL XL) 100MG *XL* TAB PO ONE (18:25)
[2022-10-04 19:14] LABS: BLOOD UREA NITROGEN 16 MG/DL (9-23); CALCIUM LEVEL 8.3 MG/DL (8.3-10.6); CARBON DIOXIDE LEVEL 22 MMOL/L (20-31); CHLORIDE LEVEL 110 MMOL/L (98-107); CREATININE FOR GFR 0.81 MG/DL (0.55-1.30); GLOMERULAR FILTRATION RATE > 60.0 (>45); GLUCOSE, FASTING 100 MG/DL (74-106); MAGNESIUM LEVEL 1.9 MG/DL (1.8-2.4); POTASSIUM SERUM 3.5 MMOL/L (3.5-5.1); SODIUM LEVEL 143 MMOL/L (136-145)
[2022-10-04 20:00] VITALS: BP 131/81
[2022-10-04] MEDS: ACETAMINOPHEN TAB 650MG DOSE (2X325MG) PO PRN (22:25)
[2022-10-05] VITALS: BP 146/90
[2022-10-05 03:39] VITALS: BP 130/63
[2022-10-05] MEDS ORDERED: RAMELTEON 8 MG TAB (ROZEREM) PO ONE (04:00)
[2022-10-05] MEDS: metroNIDAZOLE 500 MG in IV 1 EA IV SCH (05:35)
[2022-10-05] MEDS: NS 1,000 ML IV SCH ×2 (05:35→22:06)
[2022-10-05 06:01] LABS: HEMATOCRIT 34.5 % (36.0-47.0); HEMOGLOBIN 11.1 g/dl (12.0-15.5); MEAN CORPUSCULAR HEMOGLOBIN 29.8 pg (27.0-33.0); MEAN CORPUSCULAR HGB CONC 32.2 g/dl (32.0-36.5); MEAN CORPUSCULAR VOLUME 92.5 fl (80.0-96.0); PLATELET COUNT, AUTOMATED 206 10^3/uL (150-450); RED BLOOD COUNT 3.73 10^6/uL (4.00-5.40); WHITE BLOOD COUNT 21.5 10^3/uL (4.0-10.0)
[2022-10-05 06:30] LABS: EOSINOPHILS 2 % (0-3); LYMPHOCYTES 8 % (16-44); MONOCYTES 3 % (0-5); MYELOCYTES 1 % (0-0); NEUTROPHILS 81 % (28-66)
[2022-10-05 06:31] LABS: PLATELET CLUMPS SMALL AMT; PLATELET ESTIMATE NORMAL (NORMAL)
[2022-10-05 06:59] LABS: BLOOD UREA NITROGEN 12 MG/DL (9-23); CALCIUM LEVEL 8.5 MG/DL (8.3-10.6); CARBON DIOXIDE LEVEL 21 MMOL/L (20-31); CHLORIDE LEVEL 110 MMOL/L (98-107); CREATININE FOR GFR 0.82 MG/DL (0.55-1.30); GLOMERULAR FILTRATION RATE > 60.0 (>45); GLUCOSE, FASTING 124 MG/DL (74-106); MAGNESIUM LEVEL 1.8 MG/DL (1.8-2.4); POTASSIUM SERUM 3.3 MMOL/L (3.5-5.1); SODIUM LEVEL 143 MMOL/L (136-145)
[2022-10-05] MEDS ORDERED: PERCOCET 5MG/325MG TAB PO PRN (07:20)
[2022-10-05] MEDS ORDERED: POTASSIUM CHLORIDE 10MEQ SR TABLET PO ONE (08:10)
[2022-10-05 08:16] VITALS: BP 118/59
[2022-10-05] MEDS: GABAPENTIN 300 MG CAP PO SCH ×2 (08:54→22:04)
[2022-10-05] MEDS: APIXABAN 5 MG TAB (ELIQUIS) PO SCH ×2 (08:54→22:03)
[2022-10-05] MEDS: LACTOBACILLUS ACIDOPHILUS CAP (BACID) PO SCH ×3 (08:54→18:19)
[2022-10-05] MEDS: OMEPRAZOLE 20MG CAP PO SCH ×2 (08:54→22:04)
[2022-10-05] MEDS: clonazePAM 0.5 MG TAB PO SCH ×2 (08:54→22:04)
[2022-10-05] MEDS ORDERED: POTASSIUM CHL PWD 20 MEQ PACKET PO ONE (09:00)
[2022-10-05] MEDS: METOPROLOL SUCC (TopROL XL) 100MG *XL* TAB PO SCH (09:11)
[2022-10-05] MEDS: ONDANSETRON 4MG 2ML VIAL IV PRN ×2 (09:11→21:19)
[2022-10-05 12:00] VITALS: BP 111/53
[2022-10-05 16:00] VITALS: BP 117/63
[2022-10-05 20:07] VITALS: BP 115/51
[2022-10-05] MEDS: ATORVASTATIN 20 MG TAB PO SCH (22:04)
[2022-10-05] MEDS: RAMELTEON 8 MG TAB (ROZEREM) PO SCH (22:04)
[2022-10-05] MEDS: ESCITALOPRAM OXALATE 10 MG TAB (LEXAPRO) PO SCH (22:04)
[2022-10-05] MEDS: ACETAMINOPHEN TAB 650MG DOSE (2X325MG) PO PRN (22:05)
[2022-10-06] VITALS: BP 123/60
[2022-10-06 05:00] VITALS: BP 124/82
[2022-10-06 06:13] LABS: BASO # 0.1 10^3/uL (0.0-0.2); BASO % 0.5 % (0.0-1.0); EOS # 0.1 10^3/uL (0.0-0.5); EOS % 0.6 % (0.0-3.0); HEMATOCRIT 31.1 % (36.0-47.0); HEMOGLOBIN 10.1 g/dl (12.0-15.5); LYMPH # 1.2 10^3/uL (1.5-5.0); MEAN CORPUSCULAR HEMOGLOBIN 29.9 pg (27.0-33.0); MEAN CORPUSCULAR HGB CONC 32.5 g/dl (32.0-36.5); MONO # 1.3 10^3/uL (0.0-0.8); MONO % 7.3 % (2.0-8.0); NEUTROPHILS # 14.4 10^3/uL (1.5-8.5); NEUTROPHILS % 81.5 % (36.0-66.0); PLATELET COUNT, AUTOMATED 174 10^3/uL (150-450); RED BLOOD COUNT 3.38 10^6/uL (4.00-5.40); WHITE BLOOD COUNT 17.7 10^3/uL (4.0-10.0)
[2022-10-06 06:59] LABS: BLOOD UREA NITROGEN 13 MG/DL (9-23); CALCIUM LEVEL 7.7 MG/DL (8.3-10.6); CARBON DIOXIDE LEVEL 24 MMOL/L (20-31); CHLORIDE LEVEL 110 MMOL/L (98-107); CREATININE FOR GFR 0.83 MG/DL (0.55-1.30); GLOMERULAR FILTRATION RATE > 60.0 (>45); GLUCOSE, FASTING 141 MG/DL (74-106); MAGNESIUM LEVEL 1.5 MG/DL (1.8-2.4); POTASSIUM SERUM 3.2 MMOL/L (3.5-5.1); SODIUM LEVEL 143 MMOL/L (136-145)
[2022-10-06] MEDS ORDERED: POTASSIUM CHLORIDE 10% LIQ 20 MEQ/15 ML UDC PO ONE (07:15)
[2022-10-06] MEDS ORDERED: MAG SULF 1GM/100ML (MAG RUN) 1 GM in IV 1 EA IV ONE (07:20)
[2022-10-06 07:43] VITALS: BP 124/59
[2022-10-06] MEDS ORDERED: POTASSIUM CHLORIDE 10MEQ SR TABLET PO ONE ×2 (08:00→10:00)
[2022-10-06] MEDS: LACTOBACILLUS ACIDOPHILUS CAP (BACID) PO SCH ×3 (08:00→18:29)
[2022-10-06] MEDS: MAG SULF 1GM/100ML (MAG RUN) 1 GM in IV 1 EA IV SCH ×3 (09:39→22:49)
[2022-10-06] MEDS: clonazePAM 0.5 MG TAB PO SCH ×2 (09:39→20:49)
[2022-10-06] MEDS: METOPROLOL SUCC (TopROL XL) 100MG *XL* TAB PO SCH (09:39)
[2022-10-06] MEDS: GABAPENTIN 300 MG CAP PO SCH ×2 (09:39→20:50)
[2022-10-06] MEDS: OMEPRAZOLE 20MG CAP PO SCH ×2 (09:39→20:49)
[2022-10-06] MEDS: APIXABAN 5 MG TAB (ELIQUIS) PO SCH ×2 (09:39→20:49)
[2022-10-06 11:04] VITALS: BP 137/62
[2022-10-06 12:38] LABS: BLOOD UREA NITROGEN 12 MG/DL (9-23); CALCIUM LEVEL 7.6 MG/DL (8.3-10.6); CARBON DIOXIDE LEVEL 23 MMOL/L (20-31); CHLORIDE LEVEL 108 MMOL/L (98-107); CREATININE FOR GFR 0.78 MG/DL (0.55-1.30); GLOMERULAR FILTRATION RATE > 60.0 (>45); GLUCOSE, FASTING 134 MG/DL (74-106); POTASSIUM SERUM 3.2 MMOL/L (3.5-5.1); SODIUM LEVEL 140 MMOL/L (136-145)
[2022-10-06 13:20] LABS: MAGNESIUM LEVEL 1.9 MG/DL (1.8-2.4)
[2022-10-06] MEDS: KCL 10MEQ/100ML SWI (KRUN) 10 MEQ in IV 1 EA IV SCH ×3 (13:24→16:17)
[2022-10-06] MEDS: SIMETHICONE 80MG CHEW TAB PO PRN ×2 (14:14→20:49)
[2022-10-06] MEDS ORDERED: ISOVUE-370 76% 100ML VIAL As Ordered ONE (14:59)
[2022-10-06 15:42] VITALS: BP 138/63
[2022-10-06 19:42] LABS: BLOOD UREA NITROGEN 10 MG/DL (9-23); CALCIUM LEVEL 7.7 MG/DL (8.3-10.6); CARBON DIOXIDE LEVEL 22 MMOL/L (20-31); CHLORIDE LEVEL 108 MMOL/L (98-107); CREATININE FOR GFR 0.77 MG/DL (0.55-1.30); GLOMERULAR FILTRATION RATE > 60.0 (>45); GLUCOSE, FASTING 145 MG/DL (74-106); MAGNESIUM LEVEL 1.6 MG/DL (1.8-2.4); POTASSIUM SERUM 3.8 MMOL/L (3.5-5.1); SODIUM LEVEL 140 MMOL/L (136-145)
[2022-10-06 20:00] VITALS: BP 122/58
[2022-10-06] MEDS: RAMELTEON 8 MG TAB (ROZEREM) PO SCH (20:49)
[2022-10-06] MEDS: ATORVASTATIN 20 MG TAB PO SCH (20:49)
[2022-10-06] MEDS: ESCITALOPRAM OXALATE 10 MG TAB (LEXAPRO) PO SCH (20:49)
[2022-10-07] VITALS: BP 104/56
[2022-10-07] MEDS: MAG SULF 1GM/100ML (MAG RUN) 1 GM in IV 1 EA IV SCH (00:17)
[2022-10-07 04:00] VITALS: BP 121/62
[2022-10-07 04:10] LABS: BASO # 0.1 10^3/uL (0.0-0.2); BASO % 0.3 % (0.0-1.0); EOS # 0.2 10^3/uL (0.0-0.5); EOS % 1.3 % (0.0-3.0); HEMATOCRIT 31.4 % (36.0-47.0); LYMPH # 1.3 10^3/uL (1.5-5.0); LYMPH % 8.7 % (24.0-44.0); MEAN CORPUSCULAR HEMOGLOBIN 29.5 pg (27.0-33.0); MEAN CORPUSCULAR HGB CONC 31.8 g/dl (32.0-36.5); MEAN CORPUSCULAR VOLUME 92.6 fl (80.0-96.0); MONO % 6.8 % (2.0-8.0); NEUTROPHILS # 11.8 10^3/uL (1.5-8.5); NEUTROPHILS % 80.9 % (36.0-66.0); PLATELET COUNT, AUTOMATED 150 10^3/uL (150-450); RED BLOOD COUNT 3.39 10^6/uL (4.00-5.40); WHITE BLOOD COUNT 14.6 10^3/uL (4.0-10.0)
[2022-10-07 04:35] LABS: BLOOD UREA NITROGEN 8 MG/DL (9-23); CALCIUM LEVEL 7.8 MG/DL (8.3-10.6); CARBON DIOXIDE LEVEL 23 MMOL/L (20-31); CHLORIDE LEVEL 107 MMOL/L (98-107); CREATININE FOR GFR 0.81 MG/DL (0.55-1.30); GLOMERULAR FILTRATION RATE > 60.0 (>45); GLUCOSE, FASTING 132 MG/DL (74-106); MAGNESIUM LEVEL 1.9 MG/DL (1.8-2.4); POTASSIUM SERUM 3.7 MMOL/L (3.5-5.1); SODIUM LEVEL 140 MMOL/L (136-145)
[2022-10-07 07:48] VITALS: BP 109/59
[2022-10-07] MEDS: GABAPENTIN 300 MG CAP PO SCH (09:41)
[2022-10-07 09:43] VITALS: BP 130/71
[2022-10-07] MEDS: clonazePAM 0.5 MG TAB PO SCH (09:43)
[2022-10-07] MEDS: METOPROLOL SUCC (TopROL XL) 100MG *XL* TAB PO SCH (09:43)
[2022-10-07] MEDS: APIXABAN 5 MG TAB (ELIQUIS) PO SCH (09:44)
[2022-10-07] MEDS: LACTOBACILLUS ACIDOPHILUS CAP (BACID) PO SCH ×2 (09:44→12:30)
[2022-10-07] MEDS: OMEPRAZOLE 20MG CAP PO SCH (09:44)
[2022-10-07] MEDS ORDERED: SIME80TA16 PO (12:01)
[2022-10-07 12:19] VITALS: BP 124/65
== END 2022-10-07 15:00 | disposition home or self-care (01) | DRG 394 ==
LOC: M ED 07:31 → M ED INP 11:27 → ENRESERV 10-04 10:53 → M PCU 10-04 12:27
PROVIDERS: ADMIT Internal Medicine; ATTEND Internal Medicine
DX: K52.1 Toxic gastroenteritis and colitis (principal); C56.1 Malignant neoplasm of right ovary; E87.20 Acidosis, unspecified; K56.600 Partial intestinal obstruction, unspecified as to cause; I48.0 Paroxysmal atrial fibrillation; I10 Essential (primary) hypertension; K21.9 Gastro-esophageal reflux disease without esophagitis; E78.5 Hyperlipidemia, unspecified; E11.42 Type 2 diabetes mellitus with diabetic polyneuropathy; I95.9 Hypotension, unspecified; D72.829 Elevated white blood cell count, unspecified; M19.90 Unspecified osteoarthritis, unspecified site; F32.A Depression, unspecified; F41.9 Anxiety disorder, unspecified; Z90.49 Acquired absence of other specified parts of digestive tract; Z96.653 Presence of artificial knee joint, bilateral; E87.6 Hypokalemia; E83.42 Hypomagnesemia; Z79.01 Long term (current) use of anticoagulants; Z79.899 Other long term (current) drug therapy; Z88.0 Allergy status to penicillin; T45.1X5A Adverse effect of antineoplastic and immunosuppressive drugs, initial encounter

== ENCOUNTER → 2022-10-14 | Outpatient (POV) | payer MEDICARE ==
[~2022-10-14] VITALS: Ht 175.3 cm; Wt 110.9 kg
[~2022-10-14] MED LIST changes: +RA T500C2 PO; +SIME80TA16 PO
[2022-10-14 07:45] VITALS: BP 118/79
== END ==
LOC: M IRPOV 07:29
PROVIDERS: ATTEND Radiology Diagnostic Radiology
DX: Z45.2 Encounter for adjustment and management of vascular access device (principal); Z88.0 Allergy status to penicillin

== ENCOUNTER → 2022-10-26 | Outpatient (CLI) | payer MEDICARE, MEDICAID ==
[~2022-10-26] MED LIST changes: +ALBU8.5H INH
== END ==
LOC: M LABSMTC 11:14
PROVIDERS: ATTEND Anesthesiology
DX: Z01.812 Encounter for preprocedural laboratory examination (principal); Z20.822 Contact with and (suspected) exposure to COVID-19

== ENCOUNTER → 2022-11-26 | Outpatient (CLI) | payer MEDICARE, MEDICAID ==
[~2022-11-26] MED LIST changes: +BACT800T5 PO; +LEVO1TAB39 PO; +METF-838 PO; +RA M10TA PO; +SIME80CH5 PO; +TOPR50TA PO; +TUMS500C PO
== END ==
LOC: M LABSMTC 10:04
PROVIDERS: ATTEND Anesthesiology
DX: Z01.812 Encounter for preprocedural laboratory examination (principal); Z11.52 Encounter for screening for COVID-19

== ENCOUNTER 2022-12-01 12:54 | Day surgery (SDC) | payer MEDICARE, MEDICAID ==
[~2022-12-01] VITALS: Ht 175.3 cm; Wt 112.7 kg
[~2022-12-01 12:54] MED LIST changes: +NS 1,000 ML IV ONE
[2022-12-01] MEDS ORDERED: SODIUM CHLORIDE 0.9% INJ 10 ML SYR IV PRN (13:20)
[2022-12-01] MEDS ORDERED: LIDOCAINE 2% 100MG/5ML SDV (FOR ANES.) As Ordered ONE (13:54)
[2022-12-01] MEDS ORDERED: MIDAZOLAM INJ 2MG/2ML VIAL As Ordered ONE (13:54)
[2022-12-01] MEDS ORDERED: propofoL 200 MG/20 ML VIAL As Ordered ONE (13:54)
[2022-12-01 14:50] VITALS: BP 139/81
[2022-12-01] MEDS ORDERED: SODIUM CHLORIDE 0.9% INJ 10 ML SYR IV SCH (18:00)
== END 2022-12-01 15:13 | disposition home or self-care (01) ==
LOC: M OPP 12:54
PROVIDERS: ATTEND Internal Medicine Gastroenterology
DX: K44.9 Diaphragmatic hernia without obstruction or gangrene (principal); K31.89 Other diseases of stomach and duodenum; T18.3XXA Foreign body in small intestine, initial encounter; Z46.59 Encounter for fitting and adjustment of other gastrointestinal appliance and device; Z79.02 Long term (current) use of antithrombotics/antiplatelets; Z79.52 Long term (current) use of systemic steroids; Z79.891 Long term (current) use of opiate analgesic; Z79.899 Other long term (current) drug therapy; Z88.0 Allergy status to penicillin; I50.32 Chronic diastolic (congestive) heart failure; I48.0 Paroxysmal atrial fibrillation; E11.9 Type 2 diabetes mellitus without complications; I11.0 Hypertensive heart disease with heart failure; F32.9 Major depressive disorder, single episode, unspecified; F41.9 Anxiety disorder, unspecified; M17.0 Bilateral primary osteoarthritis of knee; Z85.43 Personal history of malignant neoplasm of ovary

== ENCOUNTER → 2022-12-02 | Outpatient (CLI) | payer MEDICARE, MEDICAID ==
[~2022-12-02] MED LIST changes: +GASTROGRAFIN SOLUTION 30ML As Ordered ONE; +ISOVUE-370 76% 100ML VIAL As Ordered ONE; -NS 1,000 ML IV ONE
== END ==
LOC: M RAD 08:21
PROVIDERS: ATTEND Physician Assistant
DX: C56.9 Malignant neoplasm of unspecified ovary (principal)
CPT/HCPCS: 71260; 74177; Q9963; Q9967

== ENCOUNTER → 2022-12-03 | Outpatient (REF) | payer MEDICARE, MEDICAID ==
[~2022-12-03] MED LIST changes: -GASTROGRAFIN SOLUTION 30ML As Ordered ONE; -ISOVUE-370 76% 100ML VIAL As Ordered ONE
[2022-12-03 19:45] LABS: APPEARANCE, URINE MANUAL CLEAR (CLEAR); COLOR, URINE MANUAL YELLOW (YELLOW)
[2022-12-03 19:46] LABS: GLUCOSE, URINE (UA) MANUAL NEGATIVE (NEGATIVE); KETONE, URINE MANUAL NEGATIVE (NEGATIVE); PH,URINE MAN 6.5 UNITS (5.0 - 7.0); PROTEIN, URINE MANUAL NEGATIVE (NEGATIVE); SPECIFIC GRAVITY,URINE MANUAL 1.015 (1.002-1.035); UROBILINOGEN, URINE MANUAL NORMAL (NORMAL)
[2022-12-03 19:47] LABS: BILIRUBIN, URINE MANUAL NEGATIVE (NEGATIVE); BLOOD URINE MANUAL NEGATIVE (NEGATIVE); LEUKOCYTE ESTERASE, URINE MAN TRACE (NEGATIVE); NITRITE, URINE MANUAL NEGATIVE (NEGATIVE)
[2022-12-03 20:29] LABS: BACTERIA, URINE NONE SEEN; HYALINE CAST, URINE NONE SEEN /lpf (0-1); RBC, URINE 0-1 /hpf (0-3); SQUAMOUS EPITHELIAL CELL URINE SMALL AMOUNT /hpf (SMALL AMT)
== END ==
LOC: M SMT 16:46
PROVIDERS: ATTEND Physician Assistant
DX: R31.0 Gross hematuria (principal)

== ENCOUNTER → 2022-12-16 | Outpatient (POV) | payer MEDICARE, MEDICAID ==
[~2022-12-16] VITALS: Ht 175.3 cm; Wt 109.5 kg
[2022-12-16 09:15] VITALS: BP 132/69
== END ==
LOC: M IRPOV 09:00
PROVIDERS: ATTEND Radiology Diagnostic Radiology
DX: Z48.812 Encounter for surgical aftercare following surgery on the circulatory system (principal); Z45.2 Encounter for adjustment and management of vascular access device; Z88.0 Allergy status to penicillin

== ENCOUNTER → 2022-12-22 | Outpatient (CLI) | payer MEDICARE, MEDICAID | LOC: M LABSMTC 11:19 | PROVIDERS: ATTEND Anesthesiology | DX: Z01.812 Encounter for preprocedural laboratory examination (principal); Z20.822 Contact with and (suspected) exposure to COVID-19 ==

== ENCOUNTER → 2022-12-25 | Outpatient (CLI) | payer MEDICARE, MEDICAID ==
[~2022-12-25] MED LIST changes: +ISOVUE-300 61% 100ML VIAL As Ordered ONE; +LIDOCAINE 1% MDV 20ML VIAL As Ordered ONE; +MIDAZOLAM INJ 2MG/2ML VIAL As Ordered ONE; +NS 1,000 ML IV SCH; +VANCOMYCIN 1000MG/20ML VIAL As Ordered ONE; +VANCOMYCIN HCL 1,000 MG, VIAL MATE ADAPTER 1 EACH in NS 250 ML IV ONE; +diphenhydrAMINE 50MG/ML VIAL As Ordered ONE; +fentaNYL 100 MCG/2 ML INJECTION As Ordered ONE
[2022-12-25 16:00] VITALS: BP 142/68
== END ==
LOC: M IRPRO 09:30
PROVIDERS: ATTEND Internal Medicine Medical Oncology
DX: C56.9 Malignant neoplasm of unspecified ovary (principal)
CPT/HCPCS: 36561; 99152; 99153; C1769; C1788; C1894; J1200; J2250; J3010; Q9967

== ENCOUNTER → 2023-01-15 | Outpatient (CLI) | payer MEDICARE, MEDICAID ==
[~2023-01-15] MED LIST changes: -ISOVUE-300 61% 100ML VIAL As Ordered ONE; -LIDOCAINE 1% MDV 20ML VIAL As Ordered ONE; -MIDAZOLAM INJ 2MG/2ML VIAL As Ordered ONE; -NS 1,000 ML IV SCH; -VANCOMYCIN 1000MG/20ML VIAL As Ordered ONE; -VANCOMYCIN HCL 1,000 MG, VIAL MATE ADAPTER 1 EACH in NS 250 ML IV ONE; -diphenhydrAMINE 50MG/ML VIAL As Ordered ONE; -fentaNYL 100 MCG/2 ML INJECTION As Ordered ONE
[2023-01-15 17:49] LABS: BASO # 0.1 10^3/uL (0.0-0.2); BASO % 1.1 % (0.0-1.0); EOS # 0.2 10^3/uL (0.0-0.5); EOS % 3.9 % (0.0-3.0); HEMATOCRIT 30.7 % (36.0-47.0); HEMOGLOBIN 9.8 g/dl (12.0-15.5); LYMPH # 1.3 10^3/uL (1.5-5.0); LYMPH % 20.1 % (24.0-44.0); MEAN CORPUSCULAR HEMOGLOBIN 32.9 pg (27.0-33.0); MEAN CORPUSCULAR HGB CONC 31.9 g/dl (32.0-36.5); MONO # 0.8 10^3/uL (0.0-0.8); MONO % 12.1 % (2.0-8.0); NEUTROPHILS # 3.9 10^3/uL (1.5-8.5); NEUTROPHILS % 62.3 % (36.0-66.0); PLATELET COUNT, AUTOMATED 236 10^3/uL (150-450); RED BLOOD COUNT 2.98 10^6/uL (4.00-5.40); WHITE BLOOD COUNT 6.2 10^3/uL (4.0-10.0)
[2023-01-15 18:39] LABS: ALBUMIN 3.5 G/DL (3.2-5.2); ALKALINE PHOSPHATASE 122 U/L (46-116); ALT/SGPT 23 U/L (7.0-40); AST/SGOT 22 U/L (<34); BILIRUBIN,TOTAL 1.1 MG/DL (0.3-1.2); BLOOD UREA NITROGEN 16 MG/DL (9-23); CALCIUM LEVEL 8.4 MG/DL (8.3-10.6); CARBON DIOXIDE LEVEL 29 MMOL/L (20-31); CHLORIDE LEVEL 104 MMOL/L (98-107); GLOMERULAR FILTRATION RATE > 60.0 (>45); GLUCOSE, FASTING 86 MG/DL (74-106); POTASSIUM SERUM 4.4 MMOL/L (3.5-5.1); SODIUM LEVEL 141 MMOL/L (136-145); TOTAL PROTEIN 6.4 G/DL (5.7-8.2)
== END ==
LOC: M PLALAB 15:24
PROVIDERS: ATTEND Physician Assistant Medical
DX: C56.9 Malignant neoplasm of unspecified ovary (principal)

== ENCOUNTER → 2023-01-20 | Outpatient (POV) | payer MEDICARE, MEDICAID ==
[~2023-01-20] VITALS: Ht 175.3 cm; Wt 110.9 kg
[2023-01-20 11:30] VITALS: BP 129/76
== END ==
LOC: M IRPOV 11:09
PROVIDERS: ATTEND Radiology Diagnostic Radiology
DX: Z45.2 Encounter for adjustment and management of vascular access device (principal); Z88.0 Allergy status to penicillin

== ENCOUNTER → 2023-03-27 | Outpatient (CLI) | payer MEDICARE, MEDICAID ==
[~2023-03-27] MED LIST changes: +GASTROGRAFIN SOLUTION 30ML As Ordered ONE; +ISOVUE-370 76% 100ML VIAL As Ordered ONE; +MAGN250T7 PO; +SUPETAB PO
== END ==
LOC: M RAD 16:32
DX: C56.9 Malignant neoplasm of unspecified ovary (principal)
CPT/HCPCS: 71260; 74177; Q9963; Q9967

== ENCOUNTER → 2023-04-29 | Outpatient (CLI) | payer MEDICARE, MEDICAID ==
[~2023-04-29] MED LIST changes: -GASTROGRAFIN SOLUTION 30ML As Ordered ONE; -ISOVUE-370 76% 100ML VIAL As Ordered ONE
== END ==
LOC: M WHC 12:53
PROVIDERS: ATTEND Physician Assistant Medical
DX: N63.20 Unspecified lump in the left breast, unspecified quadrant (principal); R93.89 Abnormal findings on diagnostic imaging of other specified body structures; Z85.43 Personal history of malignant neoplasm of ovary; Z80.3 Family history of malignant neoplasm of breast; R92.8 Other abnormal and inconclusive findings on diagnostic imaging of breast
CPT/HCPCS: 76641; 77065; G0279

== ENCOUNTER → 2023-05-15 | Outpatient (REF) | payer MEDICARE, MEDICAID ==
[~2023-05-15] MED LIST changes: +DOXY100C3; +METO1TAB32; +NORT10CA2
== END ==
LOC: M LAB REF 19:49
PROVIDERS: ATTEND Physician Assistant
DX: J02.9 Acute pharyngitis, unspecified (principal); J40 Bronchitis, not specified as acute or chronic

== ENCOUNTER → 2023-07-01 | Outpatient (CLI) | payer MEDICARE, MEDICAID ==
[~2023-07-01] MED LIST changes: +PREG25CA PO
== END ==
LOC: M WHC 10:02
PROVIDERS: ATTEND Nurse Practitioner
DX: Z12.31 Encounter for screening mammogram for malignant neoplasm of breast (principal); Z85.43 Personal history of malignant neoplasm of ovary

== ENCOUNTER → 2023-07-14 | Outpatient (CLI) | payer MEDICARE, MEDICAID | LOC: M RAD 15:18 | PROVIDERS: ATTEND Nurse Practitioner | DX: K66.8 Other specified disorders of peritoneum (principal) ==

== ENCOUNTER → 2023-08-05 | Outpatient (CLI) | payer MEDICARE, MEDICAID ==
[~2023-08-05] MED LIST changes: +GASTROGRAFIN SOLUTION 30ML As Ordered ONE; +ISOVUE-370 76% 100ML VIAL As Ordered ONE
== END ==
LOC: M RAD 15:17
PROVIDERS: ATTEND Nurse Practitioner
DX: R19.07 Generalized intra-abdominal and pelvic swelling, mass and lump (principal)
CPT/HCPCS: 74177; Q9963; Q9967

== ENCOUNTER → 2023-08-20 | Outpatient (CLI) | payer MEDICARE, MEDICAID ==
[~2023-08-20] MED LIST changes: +FERR325T3 PO; -GASTROGRAFIN SOLUTION 30ML As Ordered ONE; -ISOVUE-370 76% 100ML VIAL As Ordered ONE
== END ==
LOC: M RAD 09:20
PROVIDERS: ATTEND Internal Medicine Medical Oncology
DX: C56.9 Malignant neoplasm of unspecified ovary (principal)
CPT/HCPCS: 78306; A9503

== ENCOUNTER → 2023-09-01 | Outpatient (CLI) | payer MEDICARE, MEDICAID ==
[~2023-09-01] VITALS: Ht 175.3 cm; Wt 109.3 kg
[~2023-09-01] MED LIST changes: +PREG50CA PO; +SENN-186 PO
[2023-09-01 10:49] VITALS: BP 135/84; O2SAT 98
== END ==
LOC: M PAL 10:43
PROVIDERS: ATTEND Nurse Practitioner Adult Health
DX: C56.1 Malignant neoplasm of right ovary (principal); G56.93 Unspecified mononeuropathy of bilateral upper limbs; G57.93 Unspecified mononeuropathy of bilateral lower limbs; K59.00 Constipation, unspecified; Z63.79 Other stressful life events affecting family and household; Z79.01 Long term (current) use of anticoagulants; Z79.899 Other long term (current) drug therapy; Z88.0 Allergy status to penicillin; Z90.710 Acquired absence of both cervix and uterus; Z90.722 Acquired absence of ovaries, bilateral; Z90.79 Acquired absence of other genital organ(s); Z92.21 Personal history of antineoplastic chemotherapy

== ENCOUNTER → 2023-09-21 | Outpatient (CLI) | payer MEDICARE, MEDICAID | LOC: M ONCM 07:57 | DX: Z71.89 Other specified counseling (principal); C56.9 Malignant neoplasm of unspecified ovary; Z63.79 Other stressful life events affecting family and household; Z86.59 Personal history of other mental and behavioral disorders ==

== ENCOUNTER → 2023-11-18 | Outpatient (CLI) | payer MEDICARE, MEDICAID ==
[2023-11-18 13:53] LABS: BASO # 0.1 10^3/uL (0.0-0.2); BASO % 0.8 % (0.0-1.0); EOS # 0.1 10^3/uL (0.0-0.5); EOS % 2.1 % (0.0-3.0); HEMATOCRIT 39.2 % (36.0-47.0); HEMOGLOBIN 13.1 g/dl (12.0-15.5); LYMPH # 1.6 10^3/uL (1.5-5.0); LYMPH % 26.9 % (24.0-44.0); MEAN CORPUSCULAR HEMOGLOBIN 31.3 pg (27.0-33.0); MEAN CORPUSCULAR HGB CONC 33.4 g/dl (32.0-36.5); MEAN CORPUSCULAR VOLUME 93.8 fl (80.0-96.0); MONO # 0.6 10^3/uL (0.0-0.8); MONO % 10.3 % (2.0-8.0); NEUTROPHILS # 3.6 10^3/uL (1.5-8.5); NEUTROPHILS % 59.7 % (36.0-66.0); PLATELET COUNT, AUTOMATED 207 10^3/uL (150-450); RED BLOOD COUNT 4.18 10^6/uL (4.00-5.40); WHITE BLOOD COUNT 6.1 10^3/uL (4.0-10.0)
[2023-11-18 13:55] LABS: CALCIUM LEVEL 9.1 MG/DL (8.3-10.6); CHOLESTEROL RISK RATIO 2.87 (<5); LDL CHOLESTEROL 61.2 MG/DL (<100)
[2023-11-18 13:56] LABS: FERRITIN 33.9 NG/ML (7.3-270.7)
[2023-11-18 14:02] LABS: HEMOGLOBIN A1c 5.7 % (4.0-6.0)
== END ==
LOC: M PLALAB 09:40
PROVIDERS: ATTEND Physician Assistant Medical
DX: E55.9 Vitamin D deficiency, unspecified (principal); E11.9 Type 2 diabetes mellitus without complications; E78.2 Mixed hyperlipidemia; D50.9 Iron deficiency anemia, unspecified

== ENCOUNTER 2024-01-26 09:30 | Observation (INO) | payer MEDICARE, MEDICAID ==
[~2024-01-26] VITALS: Ht 175.3 cm; Wt 116.3 kg
[~2024-01-26 09:30] MED LIST changes: -METO1TAB32; +METO1TAB32 PO
[2024-01-26 10:50] LABS: BASO # 0.1 10^3/uL (0.0-0.2); BASO % 0.8 % (0.0-1.0); EOS # 0.2 10^3/uL (0.0-0.5); EOS % 2.3 % (0.0-3.0); HEMATOCRIT 36.5 % (36.0-47.0); HEMOGLOBIN 12.6 g/dl (12.0-15.5); LYMPH # 1.4 10^3/uL (1.5-5.0); LYMPH % 22.5 % (24.0-44.0); MEAN CORPUSCULAR HEMOGLOBIN 31.8 pg (27.0-33.0); MEAN CORPUSCULAR HGB CONC 34.5 g/dl (32.0-36.5); MEAN CORPUSCULAR VOLUME 92.2 fl (80.0-96.0); MONO # 0.6 10^3/uL (0.0-0.8); MONO % 9.1 % (2.0-8.0); NEUTROPHILS # 4.2 10^3/uL (1.5-8.5); NEUTROPHILS % 65.1 % (36.0-66.0); PLATELET COUNT, AUTOMATED 182 10^3/uL (150-450); RED BLOOD COUNT 3.96 10^6/uL (4.00-5.40); WHITE BLOOD COUNT 6.4 10^3/uL (4.0-10.0)
[2024-01-26 11:11] LABS: BLOOD UREA NITROGEN 20 MG/DL (9-23); CALCIUM LEVEL 8.2 MG/DL (8.3-10.6); CARBON DIOXIDE LEVEL 26 MMOL/L (20-31); CHLORIDE LEVEL 107 MMOL/L (98-107); CREATININE FOR GFR 0.73 MG/DL (0.55-1.30); GLOMERULAR FILTRATION RATE > 60.0 (>45); GLUCOSE, FASTING 119 MG/DL (74-106); POTASSIUM SERUM 3.7 MMOL/L (3.5-5.1); SODIUM LEVEL 140 MMOL/L (136-145)
[2024-01-26] MEDS: GASTROGRAFIN SOLUTION 30ML PO SCH (12:19)
[2024-01-26] MEDS ORDERED: ISOVUE-370 76% 100ML VIAL As Ordered ONE (14:33)
[2024-01-26 16:27] LABS: HEMATOCRIT 34.4 % (36.0-47.0); HEMOGLOBIN 11.6 g/dl (12.0-15.5)
[2024-01-26] MEDS ORDERED: NYST-13 TOP (19:26)
[2024-01-26] MEDS ORDERED: FERR325T3 PO (19:26)
[2024-01-26] MEDS ORDERED: ESSE250T PO (19:26)
[2024-01-26] MEDS ORDERED: SENN-83 PO (19:26)
[2024-01-26] MEDS ORDERED: HOME MED LIST COMPLETE! XX SCH (19:35)
[2024-01-26 22:00] LABS: HEMATOCRIT 37.8 % (36.0-47.0)
[2024-01-26 22:10] VITALS: BP 127/71; TEMP 97.5; O2SAT 95
[2024-01-27] MEDS: RAMELTEON 8 MG TAB (ROZEREM) PO PRN (01:12)
[2024-01-27 06:02] VITALS: BP 111/62; TEMP 97.5; O2SAT 95
[2024-01-27 06:19] LABS: BASO % 0.7 % (0.0-1.0); EOS # 0.2 10^3/uL (0.0-0.5); EOS % 2.6 % (0.0-3.0); HEMATOCRIT 34.9 % (36.0-47.0); HEMOGLOBIN 11.8 g/dl (12.0-15.5); LYMPH # 1.7 10^3/uL (1.5-5.0); LYMPH % 29.1 % (24.0-44.0); MEAN CORPUSCULAR HEMOGLOBIN 31.3 pg (27.0-33.0); MEAN CORPUSCULAR HGB CONC 33.8 g/dl (32.0-36.5); MEAN CORPUSCULAR VOLUME 92.6 fl (80.0-96.0); MONO # 0.6 10^3/uL (0.0-0.8); MONO % 10.3 % (2.0-8.0); NEUTROPHILS # 3.3 10^3/uL (1.5-8.5); PLATELET COUNT, AUTOMATED 170 10^3/uL (150-450); RED BLOOD COUNT 3.77 10^6/uL (4.00-5.40); WHITE BLOOD COUNT 5.7 10^3/uL (4.0-10.0)
[2024-01-27 06:47] LABS: BLOOD UREA NITROGEN 13 MG/DL (9-23); CALCIUM LEVEL 8.4 MG/DL (8.3-10.6); CARBON DIOXIDE LEVEL 29 MMOL/L (20-31); CHLORIDE LEVEL 105 MMOL/L (98-107); CREATININE FOR GFR 0.76 MG/DL (0.55-1.30); GLOMERULAR FILTRATION RATE > 60.0 (>45); GLUCOSE, FASTING 111 MG/DL (74-106); POTASSIUM SERUM 3.6 MMOL/L (3.5-5.1); SODIUM LEVEL 140 MMOL/L (136-145)
[2024-01-27 10:30] VITALS: BP 111/62
[2024-01-27] MEDS: OMEPRAZOLE 20MG CAP PO SCH (10:30)
[2024-01-27] MEDS: METOPROLOL SUCC *XL* 25MG TAB (TopROL *XL*) PO SCH (10:30)
[2024-01-27] MEDS ORDERED: ATORVASTATIN 20 MG TAB PO SCH (21:00)
[2024-01-27] MEDS ORDERED: ESCITALOPRAM OXALATE 10 MG TAB (LEXAPRO) PO SCH (21:00)
[2024-01-27] MEDS ORDERED: clonazePAM 0.5 MG TAB PO SCH (21:00)
== END 2024-01-27 11:10 | disposition home or self-care (01) ==
LOC: M ED 09:30 → M ED INP 09:31 → ENRESERV 21:09 → M MSPAV 21:44
PROVIDERS: ADMIT Internal Medicine Nephrology; ATTEND Internal Medicine Nephrology
DX: K62.5 Hemorrhage of anus and rectum (principal); Z85.43 Personal history of malignant neoplasm of ovary; Z92.21 Personal history of antineoplastic chemotherapy; I48.91 Unspecified atrial fibrillation; I10 Essential (primary) hypertension; E11.9 Type 2 diabetes mellitus without complications; E78.5 Hyperlipidemia, unspecified; K57.92 Diverticulitis of intestine, part unspecified, without perforation or abscess without bleeding; E66.9 Obesity, unspecified; E80.4 Gilbert syndrome; N39.3 Stress incontinence (female) (male); K44.9 Diaphragmatic hernia without obstruction or gangrene; K21.9 Gastro-esophageal reflux disease without esophagitis; G47.00 Insomnia, unspecified; G47.33 Obstructive sleep apnea (adult) (pediatric); Z88.0 Allergy status to penicillin; Z79.01 Long term (current) use of anticoagulants; Z79.4 Long term (current) use of insulin; Z79.84 Long term (current) use of oral hypoglycemic drugs
CPT/HCPCS: 36415; 74177; 80048; 85014; 85018; 85025; 87486; 87581; 87633; 87798; 99285; G0378; Q9963; Q9967

== ENCOUNTER → 2024-02-02 | Outpatient (CLI) | payer MEDICARE, MEDICAID ==
[~2024-02-02] MED LIST changes: +ESSE250T PO; +NYST-13 TOP; +SENN-83 PO
[2024-02-02 18:58] LABS: BASO # 0.1 10^3/uL (0.0-0.2); BASO % 0.7 % (0.0-1.0); EOS # 0.2 10^3/uL (0.0-0.5); EOS % 2.4 % (0.0-3.0); HEMATOCRIT 39.5 % (36.0-47.0); HEMOGLOBIN 13.5 g/dl (12.0-15.5); LYMPH % 29.2 % (24.0-44.0); MEAN CORPUSCULAR HGB CONC 34.2 g/dl (32.0-36.5); MEAN CORPUSCULAR VOLUME 93.6 fl (80.0-96.0); MONO # 0.7 10^3/uL (0.0-0.8); MONO % 10.2 % (2.0-8.0); NEUTROPHILS % 57.2 % (36.0-66.0); PLATELET COUNT, AUTOMATED 241 10^3/uL (150-450); RED BLOOD COUNT 4.22 10^6/uL (4.00-5.40)
[2024-02-02 19:35] LABS: FERRITIN 50.9 NG/ML (7.3-270.7)
== END ==
LOC: M PLALAB 15:25
PROVIDERS: ATTEND Physician Assistant Medical
DX: D50.9 Iron deficiency anemia, unspecified (principal); K57.31 Diverticulosis of large intestine without perforation or abscess with bleeding

== ENCOUNTER → 2024-02-19 | Outpatient (REF) | payer MEDICARE, MEDICAID | LOC: M SFHCPLAZ 17:02 | PROVIDERS: ATTEND Physician Assistant | DX: R09.81 Nasal congestion (principal) ==

== ENCOUNTER → 2024-03-30 | Outpatient (REF) | payer MEDICARE, MEDICAID | LOC: M SFHCWAGY 10:25 | PROVIDERS: ATTEND Nurse Practitioner Family | DX: Z12.4 Encounter for screening for malignant neoplasm of cervix (principal) | CPT/HCPCS: 87624; G0123 ==

== ENCOUNTER → 2024-03-30 | Outpatient (CLI) | payer MEDICARE, MEDICAID ==
[2024-03-30 14:41] LABS: BASO # 0.1 10^3/uL (0.0-0.2); EOS # 0.2 10^3/uL (0.0-0.5); EOS % 2.7 % (0.0-3.0); HEMATOCRIT 38.3 % (36.0-47.0); HEMOGLOBIN 12.9 g/dl (12.0-15.5); LYMPH # 1.5 10^3/uL (1.5-5.0); LYMPH % 24.3 % (24.0-44.0); MEAN CORPUSCULAR HEMOGLOBIN 31.9 pg (27.0-33.0); MEAN CORPUSCULAR HGB CONC 33.7 g/dl (32.0-36.5); MEAN CORPUSCULAR VOLUME 94.8 fl (80.0-96.0); MONO # 0.7 10^3/uL (0.0-0.8); MONO % 10.7 % (2.0-8.0); NEUTROPHILS # 3.8 10^3/uL (1.5-8.5); NEUTROPHILS % 61.1 % (36.0-66.0); PLATELET COUNT, AUTOMATED 227 10^3/uL (150-450); RED BLOOD COUNT 4.04 10^6/uL (4.00-5.40); WHITE BLOOD COUNT 6.3 10^3/uL (4.0-10.0)
[2024-03-30 15:08] LABS: HEMOGLOBIN A1c 5.7 % (4.0-6.0)
[2024-03-30 15:10] LABS: ALKALINE PHOSPHATASE 130 U/L (46-116); ALT/SGPT 23 U/L (7.0-40); AST/SGOT 21 U/L (<34); BILIRUBIN,TOTAL 1.8 MG/DL (0.3-1.2); BLOOD UREA NITROGEN 24 MG/DL (9-23); CALCIUM LEVEL 8.9 MG/DL (8.3-10.6); CARBON DIOXIDE LEVEL 28 MMOL/L (20-31); CHLORIDE LEVEL 104 MMOL/L (98-107); CHOLESTEROL LEVEL 138 MG/DL (<200); CREATININE FOR GFR 0.93 MG/DL (0.55-1.30); FERRITIN 33.3 NG/ML (7.3-270.7); GLOMERULAR FILTRATION RATE > 60.0 (>45); GLUCOSE, FASTING 111 MG/DL (74-106); HDL CHOLESTEROL 49.2 MG/DL (>40); IRON (FE) 72 UG/DL (50-170); LDL CHOLESTEROL 67.4 MG/DL (<100); NON-HDL-C 88.8 MG/DL; POTASSIUM SERUM 3.9 MMOL/L (3.5-5.1); SODIUM LEVEL 142 MMOL/L (136-145); TOTAL PROTEIN 6.7 G/DL (5.7-8.2); TRIGLYCERIDES LEVEL 107 MG/DL (<150)
== END ==
LOC: M PLALAB 09:40
PROVIDERS: ATTEND Physician Assistant Medical
DX: D50.9 Iron deficiency anemia, unspecified (principal); K21.9 Gastro-esophageal reflux disease without esophagitis; E78.2 Mixed hyperlipidemia; E11.9 Type 2 diabetes mellitus without complications

== ENCOUNTER → 2024-04-21 | Outpatient (CLI) | payer MEDICAID, MEDICARE ==
[2024-04-21 15:34] LABS: ALBUMIN 3.9 G/DL (3.2-5.2); ALKALINE PHOSPHATASE 125 U/L (46-116); ALT/SGPT 22 U/L (7.0-40); AST/SGOT 16 U/L (<34); BILIRUBIN,DIRECT 0.5 MG/DL (<0.4); BILIRUBIN,TOTAL 1.8 MG/DL (0.3-1.2); BLOOD UREA NITROGEN 19 MG/DL (9-23); CALCIUM LEVEL 9.1 MG/DL (8.3-10.6); CARBON DIOXIDE LEVEL 31 MMOL/L (20-31); CHLORIDE LEVEL 104 MMOL/L (98-107); CREATININE FOR GFR 0.85 MG/DL (0.55-1.30); GLOMERULAR FILTRATION RATE > 60.0 (>45); GLUCOSE, FASTING 112 MG/DL (74-106); POTASSIUM SERUM 4.2 MMOL/L (3.5-5.1); SODIUM LEVEL 139 MMOL/L (136-145); TOTAL PROTEIN 6.5 G/DL (5.7-8.2)
== END ==
LOC: M PLALAB 09:09
PROVIDERS: ATTEND Physician Assistant Medical
DX: R74.8 Abnormal levels of other serum enzymes (principal)

== ENCOUNTER 2024-04-25 13:17 | Emergency (ER) | payer MEDICARE ==
[~2024-04-25] VITALS: Ht 175.3 cm; Wt 116.3 kg
[2024-04-25] MEDS: NORCO, ANEXSIA 5/325MG TABLET (HYDROcodone/ACETAMINOPHEN) PO ONE (16:48)
[2024-04-25 17:59] VITALS: BP 111/67; TEMP 97.9; O2SAT 100
== END 2024-04-25 18:02 | disposition home or self-care (01) ==
LOC: M ED 13:17
DX: R10.2 Pelvic and perineal pain (principal); M25.551 Pain in right hip; M51.36 Other intervertebral disc degeneration, lumbar region; M51.37 Other intervertebral disc degeneration, lumbosacral region; M46.96 Unspecified inflammatory spondylopathy, lumbar region; M46.97 Unspecified inflammatory spondylopathy, lumbosacral region; M16.0 Bilateral primary osteoarthritis of hip; E11.9 Type 2 diabetes mellitus without complications; I10 Essential (primary) hypertension; E80.4 Gilbert syndrome; C56.9 Malignant neoplasm of unspecified ovary; Z86.79 Personal history of other diseases of the circulatory system; Y92.007 Garden or yard of unspecified non-institutional (private) residence as the place of occurrence of the external cause; Y93.H2 Activity, gardening and landscaping; Y99.9 Unspecified external cause status; Z88.0 Allergy status to penicillin; Z79.52 Long term (current) use of systemic steroids; Z79.01 Long term (current) use of anticoagulants; Z79.83 Long term (current) use of bisphosphonates; Z79.899 Other long term (current) drug therapy

== ENCOUNTER 2024-06-16 12:46 | Day surgery (SDC) | payer MEDICAID, MEDICARE ==
[~2024-06-16] VITALS: Ht 175.3 cm; Wt 113.6 kg
[~2024-06-16 12:46] MED LIST changes: +TIZA2TA PO
[2024-06-16] MEDS: NS 1,000 ML IV ONE (13:35)
[2024-06-16] MEDS ORDERED: LIDOCAINE 2% 100MG/5ML SDV (FOR ANES.) As Ordered ONE (14:11)
[2024-06-16] MEDS ORDERED: propofoL 200 MG/20 ML VIAL As Ordered ONE (14:12)
[2024-06-16 15:04] VITALS: TEMP 97.6
[2024-06-16 15:30] VITALS: BP 112/52; O2SAT 98
== END 2024-06-16 15:35 | disposition home or self-care (01) ==
LOC: M OPP 12:46
PROVIDERS: ATTEND Internal Medicine Gastroenterology
DX: Z86.010 Personal history of colon polyps (principal); K64.8 Other hemorrhoids; K57.30 Diverticulosis of large intestine without perforation or abscess without bleeding; I48.91 Unspecified atrial fibrillation; I10 Essential (primary) hypertension; G47.30 Sleep apnea, unspecified; Z99.89 Dependence on other enabling machines and devices; Z79.02 Long term (current) use of antithrombotics/antiplatelets; Z79.51 Long term (current) use of inhaled steroids; Z79.891 Long term (current) use of opiate analgesic; Z79.899 Other long term (current) drug therapy; Z88.0 Allergy status to penicillin

== ENCOUNTER → 2024-07-04 | Outpatient (CLI) | payer MEDICAID, MEDICARE | LOC: M WHC 08:46 | PROVIDERS: ATTEND Physician Assistant Medical | DX: Z12.31 Encounter for screening mammogram for malignant neoplasm of breast (principal) ==

== ENCOUNTER → 2024-09-15 | Outpatient (CLI) | payer MEDICARE ==
[~2024-09-15] MED LIST changes: +GABA-1172 PO; -GABA-282 PO; +SEMA0.257; +SENN-187 PO; -SENN-83 PO; -SIME180C25 PO; +SIME1CAP4 PO
[2024-09-15 15:04] LABS: HEMATOCRIT 36.3 % (36.0-47.0); HEMOGLOBIN 12.2 g/dl (12.0-15.5); MEAN CORPUSCULAR HEMOGLOBIN 31.6 pg (27.0-33.0); MEAN CORPUSCULAR HGB CONC 33.6 g/dl (32.0-36.5); PLATELET COUNT, AUTOMATED 214 10^3/uL (150-450); RED BLOOD COUNT 3.86 10^6/uL (4.00-5.40); WHITE BLOOD COUNT 7.4 10^3/uL (4.0-10.0)
[2024-09-15 15:27] LABS: BLOOD UREA NITROGEN 16 MG/DL (9-23); CARBON DIOXIDE LEVEL 30 MMOL/L (20-31); CHLORIDE LEVEL 109 MMOL/L (98-107); CREATININE FOR GFR 0.84 MG/DL (0.55-1.30); GLOMERULAR FILTRATION RATE > 60.0 (>45); GLUCOSE, FASTING 97 MG/DL (74-106); POTASSIUM SERUM 3.7 MMOL/L (3.5-5.1); SODIUM LEVEL 140 MMOL/L (136-145)
== END ==
LOC: M PLALAB 13:55
PROVIDERS: ATTEND Physician Assistant Medical
DX: N17.9 Acute kidney failure, unspecified (principal)

== ENCOUNTER → 2024-11-03 | Outpatient (REF) | payer MEDICARE | LOC: M SFHCPLAZ 09:49 | PROVIDERS: ATTEND Physician Assistant Medical | DX: B34.9 Viral infection, unspecified (principal) ==

== ENCOUNTER → 2024-12-28 | Outpatient (CLI) | payer MEDICARE ==
[~2024-12-28] MED LIST changes: +GASTROGRAFIN SOLUTION 30ML As Ordered ONE; +GNP250TA9 PO; +ISOVUE-370 76% 100ML VIAL As Ordered ONE; +TUME1CAP PO
== END ==
LOC: M RAD 08:11
PROVIDERS: ATTEND Nurse Practitioner Women's Health
DX: C56.9 Malignant neoplasm of unspecified ovary (principal); Z90.710 Acquired absence of both cervix and uterus; Z90.49 Acquired absence of other specified parts of digestive tract
CPT/HCPCS: 71260; 74177; Q9963; Q9967

== ENCOUNTER → 2025-02-23 | Outpatient (REF) | payer MEDICARE ==
[~2025-02-23] MED LIST changes: -GASTROGRAFIN SOLUTION 30ML As Ordered ONE; -ISOVUE-370 76% 100ML VIAL As Ordered ONE
== END ==
LOC: M SFHCPLAZ 09:48
PROVIDERS: ATTEND Physician Assistant Medical
DX: J02.9 Acute pharyngitis, unspecified (principal)

== ENCOUNTER → 2025-03-09 | Outpatient (CLI) | payer MEDICARE ==
[~2025-03-09] MED LIST changes: +KETO120S5 TOP; -KETO2SHA8 TOP; +MORP-138 PO; -MORP15TASA PO; -NYST-13 TOP; +NYST0.1C TOP; -PREG25CA PO; +PREG25CA63 PO; -PREG50CA PO; +PREG50CA87 PO
== END ==
LOC: M PLALAB 12:05
PROVIDERS: ATTEND Orthopaedic Surgery
DX: M25.562 Pain in left knee (principal)

== ENCOUNTER → 2025-03-09 | Outpatient (CLI) | payer MEDICARE ==
[2025-03-09 15:29] LABS: BASO # 0.1 10^3/uL (0.0-0.2); EOS # 0.1 10^3/uL (0.0-0.5); EOS % 1.8 % (0.0-3.0); HEMATOCRIT 40.2 % (36.0-47.0); HEMOGLOBIN 13.3 g/dl (12.0-15.5); LYMPH # 1.7 10^3/uL (1.5-5.0); LYMPH % 23.4 % (24.0-44.0); MEAN CORPUSCULAR HEMOGLOBIN 30.9 pg (27.0-33.0); MEAN CORPUSCULAR HGB CONC 33.1 g/dl (32.0-36.5); MEAN CORPUSCULAR VOLUME 93.5 fl (80.0-96.0); MONO # 0.8 10^3/uL (0.0-0.8); MONO % 10.6 % (2.0-8.0); NEUTROPHILS # 4.4 10^3/uL (1.5-8.5); NEUTROPHILS % 62.9 % (36.0-66.0); PLATELET COUNT, AUTOMATED 284 10^3/uL (150-450); WHITE BLOOD COUNT 7.1 10^3/uL (4.0-10.0)
[2025-03-09 15:57] LABS: ALBUMIN 3.9 G/DL (3.2-5.2); BILIRUBIN,TOTAL 1.5 MG/DL (0.3-1.2); CALCIUM LEVEL 9.2 MG/DL (8.3-10.6); CHOLESTEROL RISK RATIO 2.79 (<5); CREATININE FOR GFR 0.81 MG/DL (0.55-1.30); HDL CHOLESTEROL 52.3 MG/DL (>40); LDL CHOLESTEROL 50.1 MG/DL (<100); NON-HDL-C 93.7 MG/DL; POTASSIUM SERUM 4.2 MMOL/L (3.5-5.1); TOTAL PROTEIN 6.9 G/DL (5.7-8.2)
== END ==
LOC: M PLALAB 12:08
PROVIDERS: ATTEND Physician Assistant Medical
DX: I10 Essential (primary) hypertension (principal); E78.2 Mixed hyperlipidemia; K76.0 Fatty (change of) liver, not elsewhere classified; K76.89 Other specified diseases of liver; I48.0 Paroxysmal atrial fibrillation; I50.32 Chronic diastolic (congestive) heart failure

== ENCOUNTER → 2025-07-03 | Outpatient (CLI) | payer MEDICARE ==
[~2025-07-03] MED LIST changes: -ESSE250T PO; +HYDR12.510 PO; -HYDR12CA PO; +MAGN250T17 PO; -RA T500C2 PO; +TRAZ-252 PO; +TURM500C10 PO
[2025-07-03 15:26] LABS: ESTIMATED AVERAGE GLUCOSE 137.0 MG/DL (60-110)
== END ==
LOC: M PLALAB 11:37
PROVIDERS: ATTEND Physician Assistant Medical
DX: E11.9 Type 2 diabetes mellitus without complications (principal); R07.81 Pleurodynia

== ENCOUNTER → 2025-07-06 | Outpatient (CLI) | payer MEDICARE | LOC: M WHC 09:24 | PROVIDERS: ATTEND Physician Assistant Medical | DX: Z12.31 Encounter for screening mammogram for malignant neoplasm of breast (principal); M85.851 Other specified disorders of bone density and structure, right thigh; R92.313 Mammographic fatty tissue density, bilateral breasts ==

== ENCOUNTER → 2025-07-10 | Outpatient (CLI) | payer MEDICARE ==
[~2025-07-10] MED LIST changes: +ISOVUE-370 76% 100 ML VIAL As Ordered ONE
== END ==
LOC: M RAD 09:12
DX: Z85.43 Personal history of malignant neoplasm of ovary (principal); Z90.49 Acquired absence of other specified parts of digestive tract; Z90.710 Acquired absence of both cervix and uterus; Z90.722 Acquired absence of ovaries, bilateral; K43.9 Ventral hernia without obstruction or gangrene
CPT/HCPCS: 71260; 74177; Q9967

== ENCOUNTER → 2025-10-26 | Outpatient (CLI) | payer MEDICARE ==
[~2025-10-26] MED LIST changes: -ISOVUE-370 76% 100 ML VIAL As Ordered ONE; +MELA10TA30 PO; -RA M10TA PO
== END ==
LOC: M WHC 07:56
PROVIDERS: ATTEND Internal Medicine Medical Oncology
DX: R17 Unspecified jaundice (principal)